=== PATIENT | male | born 1960 | race Caucasian/White ===

== ENCOUNTER 2018-02-04 14:20 | Emergency (ER) | payer OTHER, MEDICAID, SELFPAY ==
[2018-02-04] VITALS (8 sets, daily range): BP systolic 93–154; BP diastolic 67–96; PULSE 59–154; RESP 18–23; TEMP 37; O2SAT 96–100; BMI 19.7
--- NOTE | 2018-02-04 15:10 | DI.RAD.S_ITS ---
PROCEDURE: XR CHEST 1V INDICATIONS: chest pain TECHNIQUE: One view of the chest was acquired. COMPARISON: [facility], , CHEST 1 VIEW, 07/19/2012, 22:33. FINDINGS: Surgical changes and devices: None. Lungs and pleura: No pleural effusions or pneumothorax. Lungs are clear. Mediastinum: The cardiac contours are within normal limits. The aorta demonstrates calcification and tortuosity. Bones and chest wall: Age-appropriate bony degenerative changes are seen. No suspicious bony lesions. Overlying soft tissues appear unremarkable. IMPRESSION: Portable chest within normal limits. Dictated by: Galen Bennett M.D. on 02/04/2018 at 14:21 Approved by: Galen Bennett M.D. on 02/04/2018 at 14:22
[2018-02-04 15:15] LABS: Add Manual Diff / Slide Review NO; Basophils Percent Auto 1.2 % (0-2); Eosinophils Percent Auto 2.3 % (2-4); Hematocrit 46.8 % (41-53); Hemoglobin 15.4 g/dL (13.5-17.5); Lymphocytes Percent Auto 19.5 % (25-40); Mean Corpuscular HGB Conc 32.9 % (30-36); Mean Corpuscular Hemoglobin 30.7 PG (26-34); Mean Corpuscular Volume 93.1 fL (80-100); Monocytes Percent Auto 11.3 % (3-14); Neutrophils Absolute Auto 3800 /uL (3000-5900); Neutrophils Percent Auto 65.7 % (50-75); Platelet Count 248 X10^3/uL (150-400); Red Blood Cell Count 5.03 X10^6/uL (4.5-5.9); Red Cell Distribution Width 15.5 % (11.6-14.8); White Blood Cell Count 5.7 X10^3/uL (4.5-11.0)
[2018-02-04 15:21] LABS: Alanine Aminotransferase 19 IU/L (21-72); Albumin Globulin Ratio 1.3 (1.0-2.8); Alkaline Phosphatase 75 U/L (38-126); Aspartate Aminotransferase 23 IU/L (17-59); BUN Creatinine Ratio 13.3 (6-22); Bilirubin Total 0.3 mg/dL (0.2-1.3); Blood Urea Nitrogen 20 mg/dL (9-20); Calcium 8.6 mg/dL (8.4-10.2); Carbon Dioxide 26 mmol/L (22-32); Chloride 104 mmol/L (98-107); Creatine Kinase 46 U/L (55-170); Estimated Glomerular Filt Rate 48.4 mL/min (>60); Globulin 3.1 g/dL (1.7-4.1); Glucose 77 mg/dL (70-100); HEMOLYSIS 38 (0-50); Lipase 98 U/L (23-300); Potassium 4.7 mmol/L (3.4-5.1); Sodium 142 mmol/L (137-145); Total Protein 7.1 g/dL (6.3-8.2)
[2018-02-04 15:32] LABS: Troponin I 0.014 ng/mL (0.01-0.034)
[2018-02-04] MEDS: ASPIRIN 81 MG TAB 324 MG PO (15:32)
[2018-02-04] MEDS: methylPREDNISolone 125 MG/2 ML VIAL IV (15:32)
[2018-02-04] MEDS: ALBUTEROL/IPRATROPIUM 3 ML AMPUL INH (15:42)
[2018-02-04 15:52] LABS: B Type Natriuretic Peptide < 100.0 (<100)
--- NOTE | 2018-02-04 16:30 | ED.CHESTPAIN ---
HPI - Chest Pain General Chief Complaint: Chest Pain Stated Complaint: chest hurts Time Seen by Provider: 02/04/18 14:58 Source: patient Mode of arrival: ambulatory Limitations: no limitations History of Present Illness HPI narrative: Patient is a 57-year-old male who presents with chest discomfort. He says it has been hurting in her chest for 2 days every time breathes. Denies shortness of breath, but is taking shallow breaths because it hurts. Does have a history of CVA, but no known coronary artery disease. He denies any fever productive cough. Chest pain is nonradiating. MD complaint: chest pain Onset (ago): day(s) (2) Duration: constant Pain location: substernal Severity: moderate Quality: tightness Pain radiation: none Exacerbating factors: nothing Treatments prior to arrival chest pain: none Related Data Home Medications Medication Instructions Recorded Confirmed lisinopril 20 mg PO QPM 02/04/18 02/04/18 Previous Rx's Medication Instructions Recorded doxycycline hyclate 100 mg PO BID #14 cap 02/04/18 prednisone 50 mg PO DAILY #5 tab 02/04/18 Allergies Allergy/AdvReac Type Severity Reaction Status Date / Time No Known Drug Allergies Allergy Verified 02/04/18 15:39 Review of Systems Review of Systems All systems reviewed & are unremarkable except as noted in HPI and below Cardiovascular Reports as per HPI, Denies dyspnea and Denies dyspnea on exertion Respiratory Denies change in phlegm color, Denies cough, Reports pain on inspiration, Denies dyspnea and Denies dyspnea on exertion Gastrointestinal Gastrointestinal: Denies abdominal pain, Denies change in bowel habits, Denies diarrhea, Denies nausea and Denies vomiting Genitourinary Denies hematuria, Denies flank pain, Denies urinary incontinence and Denies urinary urgency Musculoskeletal Denies back pain, Denies muscle weakness, Denies numbness and Denies tingling Integumentary/Breasts Denies pruritus, Denies erythema, Denies rash and Denies wounds Neurologic Denies numbness and Denies tingling PFSH Medical History COPD (chronic obstructive pulmonary disease) (Acute) CVA (cerebral vascular accident) (Acute) Social History Smoking Status: Current every day smoker Exam Initial Vital Signs Initial Vital Signs: Vital Signs Temperature 98.6 F 02/04/18 14:29 Pulse Rate 154 H 02/04/18 14:29 Respiratory Rate 22 02/04/18 14:29 Blood Pressure 154/94 H 02/04/18 14:29 Pulse Oximetry 100 02/04/18 14:29 Const General: cooperative Nutritional Appearance: malnourished Orientation: alert, awake and oriented x3 [facility] Head: normal to inspection and normocephalic Nose: external nose normal Face and sinus: normal facial exam Eyes General: appearance normal, both eyes and all related structures Pupils: PERRL EOM: EOM intact bilaterally Neck Neck: normal visual inspection, trachea midline, No lymphadenopathy, No midline deformity and No JVD Lymphatic: No lymphedema Chest Chest: normal inspection of the chest Resp Effort & Inspection: normal respiratory effort, able to speak in complete sentences, no respiratory distress and no use of accessory muscles Auscultation: bronchovesicular breath sounds (Decreased breath sounds bilaterally), no rales, no rhonchi and no wheezes Cardio Rate: regular rate Rhythm: regular rhythm Heart Sounds: no click, no gallops, no murmurs and no rubs Pulses: normal peripheral pulses GI Inspection: non-distended Palpation: soft, no hepatosplenomegaly, No guarding, No pulsatile mass and No tender Auscultation: normal bowel sounds Skin General: no rashes or lesions noted, No jaundice and No petechiae Neuro General: alert, oriented x3, gait normal and no focal motor deficits Speech: speech normal Course Orders Ordered: Discontinued Medications Albuterol (Ventolin Hfa Prepack) 1 box MISC SEEINSTR ONE Stop: 02/04/18 17:46 Last Admin: 02/04/18 17:49 Dose: 1 box Albuterol/Ipratropium (Duoneb) 3 ml INH NOW ONE Stop: 02/04/18 15:11 Last Admin: 02/04/18 15:42 Dose: 3 ml Aspirin (Aspirin Chew) 324 mg PO NOW ONE Stop: 02/04/18 15:11 Last Admin: 02/04/18 15:32 Dose: 324 mg Methylprednisolone (Solu-Medrol 125 Mg Vial) 125 mg IV NOW ONE Stop: 02/04/18 15:11 Last Admin: 02/04/18 15:32 Dose: 125 mg Methylprednisolone (Solu-Medrol 125 Mg Vial) 125 mg IV NOW ONE Stop: 02/04/18 16:33 Last Admin: 02/04/18 16:45 Dose: Not Given Nitroglycerin (Nitrostat) 0.4 mg SL NOW ONE Stop: 02/04/18 16:46 Last Admin: 02/04/18 16:51 Dose: 0.4 mg Vital Signs - 8 hr 02/04/18 14:29 02/04/18 15:43 02/04/18 16:00 Temperature 98.6 F Pulse Rate 154 H 62 Respiratory Rate 22 23 Blood Pressure 154/94 H Blood Pressure [Left Arm] 126/92 H Pulse Oximetry 100 97 96 MDM - Chest Pain Lab Data Attestation: I reviewed the patient's lab results. Result diagrams: 02/04/18 14:40 02/04/18 14:40 Lab Results 02/04/18 02/04/18 02/04/18 Range/Units 14:40 14:40 15:22 WBC 5.7 (4.5-11.0) X10^3/uL RBC 5.03 (4.5-5.9) X10^6/uL Hgb 15.4 (13.5-17.5) g/dL Hct 46.8 (41-53) % MCV 93.1 (80-100) fL MCH 30.7 (26-34) PG MCHC 32.9 (30-36) % RDW 15.5 H (11.6-14.8) % Plt Count 248 (150-400) X10^3/uL Neut % (Auto) 65.7 (50-75) % Lymph % (Auto) 19.5 L (25-40) % [place] % (Auto) 11.3 (3-14) % Eos % (Auto) 2.3 (2-4) % Baso % (Auto) 1.2 (0-2) % Neut # (Auto) 3800 (8461-0457) /uL Sodium 142 (137-145) mmol/L Potassium 4.7 (3.4-5.1) mmol/L Chloride 104 (98-107) mmol/L Carbon Dioxide 26 (22-32) mmol/L BUN 20 (9-20) mg/dL Creatinine 1.50 H (0.66-1.25) mg/dL Estimated GFR 48.4 L (>60) mL/min BUN/Creatinine Ratio 13.3 (6-22) Glucose 77 (70-100) mg/dL Calcium 8.6 (8.4-10.2) mg/dL Total Bilirubin 0.3 (0.2-1.3) mg/dL AST 23 (17-59) IU/L ALT 19 L (21-72) IU/L Alkaline Phosphatase 75 (38-126) U/L Total Creatine Kinase 46 L (55-170) U/L CK-MB (CK-2) TNP CK-MB (CK-2) Rel Index TNP Troponin I 0.014 (0.01-0.034) ng/mL B-Natriuretic Peptide < 100.0 (<100) Total Protein 7.1 (6.3-8.2) g/dL Albumin 4.0 (3.5-5.0) g/dL Globulin 3.1 (1.7-4.1) g/dL Albumin/Globulin Ratio 1.3 (1.0-2.8) Lipase 98 (23-300) U/L Imaging Data Chest x-ray: Radiologist's impression: PROCEDURE: XR CHEST 1V INDICATIONS: chest pain TECHNIQUE: One view of the chest was acquired. COMPARISON: [facility], , CHEST 1 VIEW, 07/19/2012, 22:33. FINDINGS: Surgical changes and devices: None. Lungs and pleura: No pleural effusions or pneumothorax. Lungs are clear. Mediastinum: The cardiac contours are within normal limits. The aorta demonstrates calcification and tortuosity. Bones and chest wall: Age-appropriate bony degenerative changes are seen. No suspicious bony lesions. Overlying soft tissues appear unremarkable. IMPRESSION: Portable chest within normal limits. Dictated by: Galen Bennett M.D. on 02/04/2018 at 14:21 ECG Data Attestation: I personally reviewed and interpreted this ECG as follows: Prior ECG tracings: available for review Interpretation: Normal sinus rhythm rate [address] changes no T-wave inversions care interval 144 QRS 85 MDM Narrative Medical decision making narrative: Initially patient given DuoNeb however he was unable to finish a that it was making his chest hurt. He continues to be able to play a video game on his iPad. Blood work chest x-ray EKG within normal limits. He is agreeable to try another breathing treatment. He is able to complete this 1 and says that it does make him feel better. He received spacer training. He is at risk coronary artery disease however does not appear to be a problem at this time. Pain with inspiration improved with bronchodilators more likely COPD. Do not suspect PE at this time no is considered, no further imaging or testing indicated at this time. Discharge Plan Departure Patient Disposition: Home Clinical Impression: COPD (chronic obstructive pulmonary disease) Discharge Date/Time: 02/04/18 18:02 Interventions: ED Discharge Assessment Last Done: 02/04/18 18:00 Instructions: Chronic Obstructive Pulmonary Disease Activity Restrictions/Additional Instructions: *You have been diagnosed with COPD exacerbation *What to do: May require further testing of the your heart such as a stress test however at this time it seems to be more respiratory than heart *Continue to take medications as directed Albuterol inhaler with spacer every 4 hr if needed for pain with breathing or difficulty breathing Prednisone 50 mg once a day for 5 days Doxycycline 1 tablet twice a day for 7 days *Follow up with your primary care provider in 2-3 days *Return to ER if you should have increasing chest discomfort shortness of breath dizziness, lightheadedness or any new, worsening or concerning symptoms Prescriptions: New doxycycline hyclate 100 mg capsule 100 mg PO BID Qty: 14 RF: 0 prednisone 50 mg tablet 50 mg PO DAILY Qty: 5 RF: 0 No Action lisinopril 20 mg tablet 20 mg PO QPM RF: 0
[2018-02-04] MEDS: NITROGLYCERIN 0.4 MG SL TAB SL (16:51)
--- NOTE | 2018-02-04 17:21 | PC.NURSE ---
Pt completed duoneb treatment from earlier.
[2018-02-04] MEDS: ALBUTEROL HFA PREPACK 1 BOX MISC (17:49)
== END 2018-02-04 18:02 | disposition home or self-care (01) ==
PROVIDERS: Emergency Provider Emergency Medicine
DX: J44.9 Chronic obstructive pulmonary disease, unspecified (principal)
CPT/HCPCS: 36591; 71045; 80053; 82550; 83690; 83880; 84484; 85025; 93005; 94640; 96374; 99283; 99285; J2930

== ENCOUNTER → 2018-11-08 16:10 | Outpatient (CLI) | payer OTHER, MEDICAID, SELFPAY ==
--- NOTE | 2018-11-08 16:13 | DI.US.S_ITS ---
PROCEDURE: US RENAL COMPLETE INDICATIONS: CHRONIC KIDNEY DISEASE STAGE 3 TECHNIQUE: Real-time scanning was performed of the kidneys and bladder, with image documentation. COMPARISON: [facility], CR, XR CHEST 1V, 02/04/2018, 15:13. FINDINGS: Kidneys: Kidneys are small in size. Right kidney measures 8.5 cm long; left kidney measures 6.5 cm long. Right renal cortical thickness is 1.6 cm; left renal cortical thickness is 1.1 cm. Renal cortical echotexture is echogenic and nodular bilaterally.. No hydronephrosis or nephrolithiasis. No suspicious solid mass lesions. Bladder: Pre-void bladder volume is 35 mL. Post-void residual is 5 mL. Pre-void images demonstrate no intraluminal masses or stones. On pre-void images, bilateral ureteral jets are noted with color Doppler interrogation. (Of note, ureteral jets may not be detectable in up to 25% of cases due to insufficient differences in specific gravity between ureteral and bladder urine). Miscellaneous: No free pelvic fluid. IMPRESSION: Small kidneys, echogenic nodular renal cortex bilaterally, no hydronephrosis or nephrolithiasis is found. Normal bladder function. Dictated by: Colt Ferguson M.D. on 11/08/2018 at 17:16 Approved by: Colt Ferguson M.D. on 11/08/2018 at 17:18
== END ==
PROVIDERS: Visit Provider Student in an Organized Health Care Education/Training Program
DX: N18.3 Chronic kidney disease, stage 3 (moderate) (principal)
CPT/HCPCS: 76770

== ENCOUNTER 2019-02-10 03:26 | Observation (INO) | payer OTHER, MEDICAID, SELFPAY ==
[2019-02-10 03:30] VITALS: BP 171/102; PULSE 61; RESP 22; TEMP 36.4; O2SAT 97; BMI 21.6
--- NOTE | 2019-02-10 03:43 | ED_ITS ---
HPI - Abdominal Pain General Chief Complaint: Abdominal Pain Stated Complaint: R Side Abdomen Pain Time Seen by Provider: 02/10/19 03:29 Source: patient Mode of arrival: Ambulatory Limitations: no limitations History of Present Illness HPI narrative: 58-year-old male daily smoker with history of hypertension and a prior perforated gastric ulcer presents with his significant other in the chief complaint of a relatively sudden onset right upper quadrant pain which is sharp and stabbing and unrelenting. The pain started soon after eating dinner. He has been nauseated but denies any vomiting. He denies any change in bowel habits. He denies any dysuria, frequency or urgency. He has had no fever or chills. He is not dizzy nor weak or lightheaded. It he denies any constipation or diarrhea. His pain is worse when he moves and improves with rest. He denies any history of the same MD complaint: abdominal pain Onset (ago): hour(s) Pain Consistency: constant Location: RUQ Severity: moderate Quality: cramping and stabbing Radiation: none Migration to: no migration Relieving factors: rest Exacerbating factors: eating and movement Associated symptoms: nausea Related Data Home Medications Medication Instructions Recorded Confirmed lisinopril 20 mg PO QPM 02/04/18 02/10/19 Previous Rx's Medication Instructions Recorded doxycycline hyclate 100 mg PO BID #14 cap 02/04/18 prednisone 50 mg PO DAILY #5 tab 02/04/18 docusate sodium [Colace] 100 mg PO BID #90 cap 02/10/19 Allergies Allergy/AdvReac Type Severity Reaction Status Date / Time No Known Drug Allergies Allergy Verified 02/04/18 15:39 Review of Systems Constitutional Constitutional: Denies chills, Denies fatigue, Denies fever(s), Denies frequent falls, Denies lethargy and Denies weakness Eyes Eyes: Denies change in vision, Denies eye discharge, Denies irritation and Denies loss of vision ENT Ears, Nose, Mouth, and Throat: Denies change in voice, Denies dizziness, Denies neck pain, Denies sore throat and Denies throat swelling Cardiovascular Cardiovascular: Denies chest pain, Denies irregular heart rhythm, Denies lightheadedness, Denies palpitations, Denies dyspnea, Denies dyspnea on exertion and Denies orthopnea Respiratory Respiratory: Denies cough, Denies dyspnea, Denies dyspnea on exertion and Denies wheezing Gastrointestinal Gastrointestinal: Reports abdominal pain, Denies change in bowel habits, Denies diarrhea, Denies nausea and Denies vomiting Genitourinary Genitourinary: Denies hematuria, Denies flank pain, Denies urinary incontinence and Denies urinary urgency Musculoskeletal Musculoskeletal: Denies back pain, Denies muscle weakness, Denies neck pain, Denies numbness and Denies tingling Integumentary/Breasts Skin/Breast: Denies pruritus, Denies erythema, Denies rash and Denies wounds Neurologic Neurologic: Denies behavioral changes, Denies confusion, Denies dizziness, Denies frequent falls, Denies loss of vision, Denies numbness, Denies tingling and Denies weakness Psychiatric Psychiatric: Denies anxiety, Denies behavioral changes, Denies confusion, Denies depression, Denies homicidal ideation and Denies suicidal ideation Endocrine Endocrine: Denies fatigue, Denies flushing and Denies palpitations Hematologic/Lymphatic Hematologic/Lymphatic: Denies easy bruising Allergic/Immunologic Allergic/Immunologic: Denies urticaria, Denies throat swelling and Denies wheezing Patient History Medical History COPD (chronic obstructive pulmonary disease) (Acute) CVA (cerebral vascular accident) (Acute) Social History household members: family Smoking Status: Current every day smoker alcohol intake frequency: 0-2 drinks per day Substance Use Type: marijuana Exam Narrative Exam Narrative: GENERAL: [58] year old patient appears stated age. Well- nourished, well-developed patient, in mild distress. HEAD: Atraumatic. Normocephalic. EYES: Pupils equal round and reactive. Extraocular motions intact. No scleral icterus. No injection or drainage. ENT: Nose without bleeding, purulent drainage. Throat without erythema, tonsillar hypertrophy or exudate. Airway patent. NECK: Trachea midline. Non tender CARDIOVASCULAR: Regular rate and rhythm without murmurs, gallops, or rubs. RESPIRATORY: Clear to auscultation. Breath sounds equal bilaterally. No wheezes, rales, or rhonchi. GASTROINTESTINAL: Abdomen soft, tender in RUQ, nondistended. EXTREMITIES: No edema or joint tenderness. BACK: Nontender without deformity or crepitance. No flank tenderness. NEURO: AOx3. SKIN: No rash or erythema of visible areas Initial Vital Signs Initial Vital Signs: Vital Signs Temperature 97.6 F 02/10/19 03:30 Pulse Rate 61 02/10/19 03:30 Respiratory Rate 22 02/10/19 03:30 Blood Pressure 171/102 H 02/10/19 03:30 Pulse Oximetry 97 02/10/19 03:30 Course Orders Ordered: Discontinued Medications Hydromorphone HCl (Dilaudid) 1 mg IV NOW ONE Stop: 02/10/19 04:50 Last Admin: 02/10/19 04:53 Dose: 1 mg Documented by: JAZZMINE Hydromorphone HCl (Dilaudid) 1 mg IV Q4HR PRN PRN Reason: Pain, Severe (7-10) Last Admin: 02/10/19 06:48 Dose: 1 mg Documented by: AMELIA Sodium Chloride (Normal Saline 0.9%) 1,000 mls @ 1,000 mls/hr IV BOLUS ONE Stop: 02/10/19 04:42 Last Infusion: 02/10/19 04:49 Dose: 0 mls/hr Documented by: Admin: 02/10/19 04:05 Dose: 1,000 mls/hr Documented by: JAZZMINE Piperacillin/Tazobactam/Dextrose (Zosyn) 3.375 gm in 50 mls @ 100 mls/hr IV NOW ONE Stop: 02/10/19 05:38 Last Infusion: 02/10/19 05:45 Dose: 0 mls/hr Documented by: Admin: 02/10/19 05:13 Dose: 100 mls/hr Documented by: JAZZMINE Sodium Chloride (Normal Saline 0.9%) 1,000 mls @ 125 mls/hr IV CONT JUAN Last Admin: 02/10/19 06:47 Dose: 125 mls/hr Documented by: AMELIA Magnesium Citrate (Magnesium Citrate) 300 ml PO NOW ONE Stop: 02/10/19 15:39 Last Admin: 02/10/19 17:13 Dose: 300 ml Documented by: LORIE Naloxone HCl (Narcan) 0.2 mg IV Q2MIN PRN PRN Reason: Opiate Reversal Ondansetron HCl (Zofran) 4 mg IV NOW ONE Stop: 02/10/19 04:50 Last Admin: 02/10/19 04:53 Dose: 4 mg Documented by: JAZZMINE Ondansetron HCl (Zofran) 4 mg IV Q4HR PRN PRN Reason: Nausea And Vomiting Polyethylene Glycol (Miralax) 17 gm PO NOW ONE Stop: 02/10/19 09:43 Last Admin: 02/10/19 10:10 Dose: 17 gm Documented by: NATHANAEL Sodium Biphosphate/Sodium Phosphate (Fleet Enema) 1 each TN NOW ONE Stop: 02/10/19 09:43 Last Admin: 02/10/19 15:04 Dose: 1 each Documented by: NATHANAEL Vital Signs Vital signs: Vital Signs - 8 hr 02/10/19 03:30 Temperature 97.6 F Pulse Rate 61 Respiratory Rate 22 Blood Pressure 171/102 H Pulse Oximetry 97 MDM - Abdominal Pain Lab Data Result diagrams: 02/10/19 03:40 02/10/19 03:40 Labs: Lab Results 02/10/19 02/10/19 Range/Units 03:40 03:40 WBC 8.7 (4.5-11.0) X10^3/uL RBC 5.95 H (4.5-5.9) X10^6/uL Hgb 19.3 H (13.5-17.5) g/dL Hct 56.9 H (41-53) % MCV 95.6 (80-100) fL MCH 32.4 (26-34) PG MCHC 33.9 (30-36) % RDW 15.1 H (11.6-14.8) % Plt Count 226 (150-400) X10^3/uL Neut % (Auto) 83.6 H (50-75) % Lymph % (Auto) 7.1 L (25-40) % [place] % (Auto) 7.5 (3-14) % Eos % (Auto) 0.7 L (2-4) % Baso % (Auto) 1.1 (0-2) % Neut # (Auto) 7200 H (8998-9988) /uL Lymph # (Auto) 600 L (8799-6786) /uL [place] # (Auto) 600 (0-900) /uL Eos # (Auto) 100 (0-450) /uL Baso # (Auto) 100 (0-100) /uL Sodium 140 (137-145) mmol/L Potassium 4.7 (3.4-5.1) mmol/L Chloride 102 (98-107) mmol/L Carbon Dioxide 26 (22-32) mmol/L BUN 34 H (9-20) mg/dL Creatinine 2.50 H (0.66-1.25) mg/dL Estimated GFR 26.8 L (>60) mL/min BUN/Creatinine Ratio 13.6 (6-22) Glucose 125 H (70-100) mg/dL Calcium 11.1 H (8.4-10.2) mg/dL Total Bilirubin 0.7 (0.2-1.3) mg/dL AST 32 (17-59) IU/L ALT 22 (<50) IU/L Alkaline Phosphatase 104 (38-126) U/L Total Protein 8.2 (6.3-8.2) g/dL Albumin 4.7 (3.5-5.0) g/dL Globulin 3.5 (1.7-4.1) g/dL Albumin/Globulin Ratio 1.3 (1.0-2.8) Lipase 143 (23-300) U/L Point of care testing: Urine Dip Bedside Urine Glucose Negative Bedside Urine Bilirubin - Negative Bedside Urine Ketone - Negative Urine Specific [place] 1.015 Bedside Urine Occult Blood +/- Bedside Urine pH 6 Bedside Urine Protein +/- 15 Bedside Urine Urobilinogen - Negative Bedside Urine Nitrite - Negative Bedside Urine Leukocytes - Negative Esterase Discharge Plan Departure Patient Disposition: Admitted As Inpatient Clinical Impression: Acalculous cholecystitis Discharge Date/Time: 02/10/19 06:00 Instructions: Constipation Admit Date/Time: 02/10/19 05:26 Admit Provider: Aaron Coates
--- NOTE | 2019-02-10 03:45 | DI.US.S_ITS ---
PROCEDURE: US ABDOMEN LIMITED INDICATIONS: severe RUQ pain TECHNIQUE: Real-time focused scanning was performed of the abdomen, with image documentation. COMPARISON: None. FINDINGS: Liver is normal in size and has homogeneous echotexture. Gallbladder is mildly contracted. No gallstones. Gallbladder wall is mildly thickened measuring 3.2 mm. No pericholecystic fluid. Positive sonographic Clay sign noted. Common bile duct is normal in caliber measuring 5.8 mm. IMPRESSION: 1. Mild gallbladder wall thickening with positive sonographic Clay sign. Acute acalculous cholecystitis cannot be excluded. Recommend nuclear medicine HIDA scan if there is clinical concern for cholecystitis. 2. No evidence of biliary obstruction. Dictated by: Dot García MD, PhD on 02/10/2019 at 8:13 Approved by: Dot García MD, PhD on 02/10/2019 at 8:14
[2019-02-10 03:55] LABS: Add Manual Diff / Slide Review NO; Alanine Aminotransferase 22 IU/L (<50); Albumin 4.7 g/dL (3.5-5.0); Albumin Globulin Ratio 1.3 (1.0-2.8); Alkaline Phosphatase 104 U/L (38-126); Aspartate Aminotransferase 32 IU/L (17-59); BUN Creatinine Ratio 13.6 (6-22); Basophils Absolute Auto 100 /uL (0-100); Basophils Percent Auto 1.1 % (0-2); Bilirubin Total 0.7 mg/dL (0.2-1.3); Blood Urea Nitrogen 34 mg/dL (9-20); Calcium 11.1 mg/dL (8.4-10.2); Carbon Dioxide 26 mmol/L (22-32); Chloride 102 mmol/L (98-107); Eosinophils Absolute Auto 100 /uL (0-450); Eosinophils Percent Auto 0.7 % (2-4); Estimated Glomerular Filt Rate 26.8 mL/min (>60); Globulin 3.5 g/dL (1.7-4.1); Glucose 125 mg/dL (70-100); HEMOLYSIS 38 (0-50); Hematocrit 56.9 % (41-53); Hemoglobin 19.3 g/dL (13.5-17.5); Lipase 143 U/L (23-300); Lymphocytes Absolute Auto 600 /uL (1100-4500); Lymphocytes Percent Auto 7.1 % (25-40); Mean Corpuscular HGB Conc 33.9 % (30-36); Mean Corpuscular Hemoglobin 32.4 PG (26-34); Mean Corpuscular Volume 95.6 fL (80-100); Monocytes Absolute Auto 600 /uL (0-900); Monocytes Percent Auto 7.5 % (3-14); Neutrophils Absolute Auto 7200 /uL (1500-7000); Neutrophils Percent Auto 83.6 % (50-75); Platelet Count 226 X10^3/uL (150-400); Potassium 4.7 mmol/L (3.4-5.1); Red Blood Cell Count 5.95 X10^6/uL (4.5-5.9); Red Cell Distribution Width 15.1 % (11.6-14.8); Sodium 140 mmol/L (137-145); Total Protein 8.2 g/dL (6.3-8.2); White Blood Cell Count 8.7 X10^3/uL (4.5-11.0)
[2019-02-10] MEDS: SODIUM CHLORIDE 0.9% 1,000 ML 1000 ML IV (04:05)
[2019-02-10] MEDS: ONDANSETRON 4 MG/2 ML INJ IV (04:53)
[2019-02-10] MEDS: HYDROMORPHONE 1 MG INJ IV ×2 (04:53→06:48)
[2019-02-10] MEDS: PIPERACILLIN-TAZO 3.375 GM/50 ML FROZ.PIGGY IV (05:13)
[2019-02-10 05:39] VITALS: BP 137/69; PULSE 49; RESP 15; O2SAT 96
[2019-02-10 06:23] VITALS: BMI 20.2
[2019-02-10 06:40] VITALS: BP 140/93; PULSE 52; RESP 16; TEMP 36.6; O2SAT 91
[2019-02-10] MEDS: SODIUM CHLORIDE 0.9% 1,000 ML 125 ML IV (06:47)
--- NOTE | 2019-02-10 07:20 | DI.CT.S_ITS ---
PROCEDURE: CT ABDOMEN PELVIS WO CON INDICATIONS: RLQ pain, GFR 26.8 TECHNIQUE: After the administration of oral contrast, 5 mm thick sections acquired from the diaphragms to the symphysis. 5 mm coronal and sagittal reformats were performed. For radiation dose reduction, the following was used: automated exposure control, adjustment of mA and/or kV according to patient size. COMPARISON: [facility], CT, ABDOMEN/PELVIS WITH CONTRAST, 07/19/2012, 22:20. FINDINGS: Image quality: Excellent. ABDOMEN: Lung bases: Lung bases are clear. Heart size is normal. Solid organs: Liver is normal in size. Gallbladder is unremarkable. Pancreas is normal in size. Spleen is normal in size. No adrenal nodules. Both kidneys are normal in size, without hydronephrosis or nephrolithiasis. Peritoneum and bowel: The stomach is distended. It has a thin wall. Large amount of fecal debris present in the right colon. Prominent transverse colon and mildly prominent small bowel. Question mild ileus. Bowel loops demonstrate normal wall thickness and caliber. Sigmoid diverticulosis without evidence of diverticulitis. The appendix is not identified. There is no significant inflammatory change noted in the right lower quadrant. No free fluid or air. Nodes and vessels: No retroperitoneal or mesenteric adenopathy by size criteria. Aorta and inferior vena cava are normal in size. Atherosclerotic aortic and common iliac artery calcifications. Miscellaneous: No ventral hernias. PELVIS: Genitourinary: Bladder wall thickness is normal. Miscellaneous: Question small bilateral inguinal hernias containing fat. Shotty bilateral inguinal lymph nodes. Bones: No suspicious bony lesions. No vertebral body compression fractures. IMPRESSION: 1. Large amount of fecal debris present in the right colon. 2. Question small bilateral inguinal hernias containing fat. 3. No CT findings suspicious for acute appendicitis. 4. Question mild ileus pattern. 5. Mild sigmoid diverticulosis. Comment: Limited pelvic ultrasound may be helpful to identify the presence or absence of inguinal hernias. Dictated by: Jay Boswell M.D. on 02/10/2019 at 8:41 Approved by: Jay Boswell M.D. on 02/10/2019 at 8:49
--- NOTE | 2019-02-10 08:51 | CM.DANOTE ---
DCP: Case received, EMR reviewed and met with patient. Introduced self and role. Patient reluctant to have conversation with this correctional counselor/case manager, answered yes and no questions, as well as I don't know. Was able to witness patient ambulate with no DME supplies, as he went down for a C.T. of his abdomen. DCP assessment completed based on information currently available. Patient is a 58 year old male who admitted early this morning to the care of the hospitalist team. PCP: Unknown at this time. Payer: [facility] /Medicaid. Patient came to the hospital via family vehicle secondary to complaints of abdominal pain. Patient is currently getting diagnostic imaging, just came back from a C.T. scan, of his abdomen. Witnessed patient ambulate to wheel-chair to go down for procedure, came back, ambulated to bathroom with no DME supplies. This correctional counselor/case manager attempted to speak to patient, he was in his bed laying on his side. Asked him if he had a primary provider, stated, I don't know. Asked him if he lives alone, stated, no, and did confirm with him that he does not drive. Patient lives with his mother, Diamond, and has a friend, Billie Irvin, according to notes. Patient is a current smoker, and does use Marijuana. He has history of HTN, and gastric ulcer as well. P: DCP will continue to follow, and be available for any resources that he may need. He should be able to go home when he is medically stable. Sherri Maya RN/Electron [employer] Photo Mask Technician
[2019-02-10] MEDS: POLYETHYLENE GLYCOL 3350 17 GM POWD.PACK PO (10:10)
[2019-02-10 14:28] VITALS: BP 134/75; PULSE 69; TEMP 36.7; O2SAT 92
--- NOTE | 2019-02-10 14:29 | P.HP_ITS ---
History of Present Illness History of Present Illness Date Patient Seen: 02/10/19 Time Patient Seen: 14:30 Chief complaint: R Side Abdomen Pain Narrative: This is a 58-year-old male was admitted to this hospital with generalized right sided abdominal pain. New in onset associated with some nausea no emesis or diarrhea fever. There is thought that he might have a calculous cholecystitis based on an ultrasound was obtained in the emergency room which demonstrated some mild with gallbladder wall thickening however there were no stones there was no pericholecystic fluid a normal white blood cell count. No history of biliary colic. Past medical history is significant for COPD chronic kidney disease history of perforated peptic ulcer. Patient History Medical History COPD (chronic obstructive pulmonary disease) (Acute) CVA (cerebral vascular accident) (Acute) Family & Social History Social History: household members family Prior Living Arrangements House Safety & Behavioral: Feels Safe in Current Yes Environment Been Physically Hurt or No Threatened By a Person Suicidal Ideation Description None Tobacco & Substance use: Tobacco type cigarettes Smoking Status Current every day smoker Smoking packs per day 0.5 alcohol intake frequency holiday/special occasion Substance Use Type marijuana Meds Home Medications and Allergies Home Medications Medication Instructions Recorded Confirmed Type doxycycline hyclate 100 mg PO BID #14 cap 02/04/18 Rx lisinopril 20 mg PO QPM 02/04/18 02/10/19 History prednisone 50 mg PO DAILY #5 tab 02/04/18 Rx docusate sodium [Colace] 100 mg PO BID #90 cap 02/10/19 Rx Allergies Allergy/AdvReac Type Severity Reaction Status Date / Time No Known Drug Allergies Allergy Verified 02/04/18 15:39 Review of Systems Review of Systems Narrative: A complete review of systems is negative except as noted in the HPI Exam Vital Signs (past 8 hours): - 02/10/19 06:40 Temperature 97.8 F Pulse Rate 52 L Respiratory Rate 16 Blood Pressure 140/93 H Pulse Oximetry 91 Oxygen Delivery Method Room Air Narrative Exam Narrative: General-no acute distress, well nourished HEENT-moist mucous membranes, no scleral icterus Neck-supple, no lymphadenopathy Chest- non labored respirations, clear to auscultation bilaterally Cardiac-regular rate no peripheral edema Abdomen-soft, mild tenderness right lower quadrant no epigastric or right upper quadrant tenderness Extremities-warm, well perfused Neurological-alert and oriented, no focal deficits Objective Labs Result Diagrams: 02/10/19 03:40 02/10/19 03:40 Labs: Laboratory Results - last 24 hr 02/10/19 02/10/19 03:40 03:40 WBC 8.7 RBC 5.95 H Hgb 19.3 H Hct 56.9 H MCV 95.6 MCH 32.4 MCHC 33.9 RDW 15.1 H Plt Count 226 Neut % (Auto) 83.6 H Lymph % (Auto) 7.1 L [place] % (Auto) 7.5 Eos % (Auto) 0.7 L Baso % (Auto) 1.1 Neut # (Auto) 7200 H Lymph # (Auto) 600 L [place] # (Auto) 600 Eos # (Auto) 100 Baso # (Auto) 100 Sodium 140 Potassium 4.7 Chloride 102 Carbon Dioxide 26 BUN 34 H Creatinine 2.50 H Estimated GFR 26.8 L BUN/Creatinine Ratio 13.6 Glucose 125 H Calcium 11.1 H Total Bilirubin 0.7 AST 32 ALT 22 Alkaline Phosphatase 104 Total Protein 8.2 Albumin 4.7 Globulin 3.5 Albumin/Globulin Ratio 1.3 Lipase 143 Assessment & Plan Assessment and plan (1) Abdominal pain: Current visit: Yes Status: Acute Assessment & Plan narrative: This is a 58-year-old male with right-sided abdominal pain who was admitted for presumed acalculous cholecystitis. In my assessment he has right lower quadrant pain, the ultrasound demonstrates mild gallbladder wall thickening no pericholecystic fluid no stones mass in addition to a white blood cell count of 9 and normal LFTs. I have detained as CT abdomen pelvis with oral contrast morning which demonstrates normal gallbladder as well as no intra-abdominal acute pathology there is significant constipation. -Regular diet -DC Zosyn -Miralax -Magnesium citrate and Enema -SCDs Quality VTE Deep Vein Thrombosis/Pulmonary Embolism Present on Admission: No
--- NOTE | 2019-02-10 14:56 | PC.NURSE ---
Day Shift Pt drank contrast this AM for abd CT. Did have small emesis after returning (mouthful). able to drink miralax. did have small formed stool. Did not eat much else. Pt sleeping for majority of shift. Did not want enema, finally convinced pt at end of shift. will give. Spoke with pt's GF and she will be here this afternoon and will be available to take pt home.
[2019-02-10] MEDS: FLEETS ENEMA 1 EACH PR (15:04)
[2019-02-10 16:00] VITALS: BP 150/90; PULSE 66; RESP 18; TEMP 37.3
[2019-02-10] MEDS: MAGNESIUM CITRATE 300 ML SOLUTION PO (17:13)
--- NOTE | 2019-02-10 17:14 | PM.DS.1 ---
History of Present Illness History of Present Illness Chief complaint: R Side Abdomen Pain Narrative: This is a 58-year-old male was admitted to this hospital with generalized right sided abdominal pain. New in onset associated with some nausea no emesis or diarrhea fever. There is thought that he might have acalculous cholecystitis based on an ultrasound was obtained in the emergency room which demonstrated some mild with gallbladder wall thickening however there were no stones there was no pericholecystic fluid a normal white blood cell count. No history of biliary colic. Past medical history is significant for COPD chronic kidney disease history of perforated peptic ulcer. Discharge Providers Provider Date of admission: 02/10/19 05:26 Discharge Date: 02/10/19 Discharge provider: Aaron Coates MD Summary Hospital Course Discharge Diagnosis: Constipation COPD CKD Hospital Course: This is a 58-year-old male with right-sided abdominal pain who was admitted for presumed acalculous cholecystitis. In my assessment he has right lower quadrant pain, the ultrasound demonstrates mild gallbladder wall thickening no pericholecystic fluid no stones mass in addition to a white blood cell count of 9 and normal LFTs. I have detained as CT abdomen pelvis with oral contrast morning which demonstrates normal gallbladder as well as no intra-abdominal acute pathology there is significant constipation. A bowel regimen of MiraLax as well as enema was begun in the hospital with improvement in his abdominal pain. This point he is safe for discharge home. Status at Discharge Cognitive/behavioral status at discharge: oriented Functional status at discharge: independent ambulation Overall status at discharge: patient is back to baseline Time Spent with Patient Time spent: Less than 30 minutes Exam Vital Signs (past 8 hours): - 02/10/19 14:28 02/10/19 16:00 Temperature 98.1 F 99.2 F Pulse Rate 69 66 Respiratory Rate 18 Blood Pressure 134/75 150/90 H Pulse Oximetry 92 Oxygen Delivery Method Room Air Oxygen Flow Rate 0 Narrative Exam Narrative: General-no acute distress, thin man appears older than age HEENT-moist mucous membranes, no scleral icterus Neck-supple, no lymphadenopathy Chest- non labored respirations, clear to auscultation bilaterally Cardiac-regular rate no peripheral edema Abdomen-soft, nondistended Extremities-warm, well perfused Neurological-alert and oriented, no focal deficits Objective Labs Result Diagrams: 02/10/19 03:40 02/10/19 03:40 Labs: Laboratory Results - last 24 hr 02/10/19 02/10/19 03:40 03:40 WBC 8.7 RBC 5.95 H Hgb 19.3 H Hct 56.9 H MCV 95.6 MCH 32.4 MCHC 33.9 RDW 15.1 H Plt Count 226 Neut % (Auto) 83.6 H Lymph % (Auto) 7.1 L [place] % (Auto) 7.5 Eos % (Auto) 0.7 L Baso % (Auto) 1.1 Neut # (Auto) 7200 H Lymph # (Auto) 600 L [place] # (Auto) 600 Eos # (Auto) 100 Baso # (Auto) 100 Sodium 140 Potassium 4.7 Chloride 102 Carbon Dioxide 26 BUN 34 H Creatinine 2.50 H Estimated GFR 26.8 L BUN/Creatinine Ratio 13.6 Glucose 125 H Calcium 11.1 H Total Bilirubin 0.7 AST 32 ALT 22 Alkaline Phosphatase 104 Total Protein 8.2 Albumin 4.7 Globulin 3.5 Albumin/Globulin Ratio 1.3 Lipase 143 Discharge Plan Discharge Plan Patient Disposition: Home Discharge orders & Medications Prescriptions: New docusate sodium [Colace] 100 mg capsule 100 mg PO BID Qty: 90 RF: 0 Continued lisinopril 20 mg tablet 20 mg PO QPM RF: 0 doxycycline hyclate 100 mg capsule 100 mg PO BID Qty: 14 RF: 0 prednisone 50 mg tablet 50 mg PO DAILY Qty: 5 RF: 0 Diet/Activity/Treatments Diet: Regular Skin/Wound/Dressing Care Report to your healthcare provider any signs of infection, such as:: increased pain Discharge Data Attending Provider: Aaron Coates Admit Date/Time: 02/10/19 05:26 Quality VTE Deep Vein Thrombosis/Pulmonary Embolism Present on Admission: No
--- NOTE | 2019-02-10 19:58 | PC.NURSE ---
Addendum entered by Karmen Bowman R.N. 02/10/19 20:25: All DC paperwork/packet reviewed with patient. I instructed him to drink plenty of fluids and ambulate to help move his bowels. He denied further questions/concerns, was nonverbal or saying yeah or swearing once in a while. Girlfriend left to cigar packer and picker Miralax at [facility], patient aware of new med colace bid. Pt dressed independently, pausing every 1-2 minutes during mvmt, cussing multiple times, holding his abdomen. Patient assisted into wheelchair and taken downstairs by BAG HANGER to wait for his girlfriend, all paperwork & belongings are with him. Original Note: 1529: Patient in bed, sleeping. No grimace or moan, when wakeful he is moaning with facial grimace. Face flushed. VS stable, hypertensive, BP 150/90. Patient has had small stool in toilet. 1744: New order in chart for Mag Citrate, I waited for Rx to bring up. I called Rx to notify that I need this medication. Med sent to me. Took into patient, teaching given, I instructed him to drink Mag Citrate. Abdomen distended, tender to touch. Patient verbally cussing at me when I attempted to do head to toe assessment. 1929: Found patient ambulating in room, getting back to bed. Still has not consumed entire bottle of mag citrate, approx 1/3 left in the bottle. He reports significant pain 9/10 to abdomen, getting into position and closing eyes. Face flushed. He is swearing at me when I turn on the light & assess his abdomen. He denies having any BM. I went in BR and found small brown formed stool in toilet. I also found his IV J-loop sitting on top of the toilet paper dispenser. I asked him if he pulled his IV out, he said I guess, I asked to see his R forearm, he swore at me again, saying God-damn and F multiple times. IV site with no bleeding. I instructed him to sit up and drink rest of mag citrate, he refuses, swears at me & nonverbal at times. Girlfriend sitting in recliner & witness to this. 1950: Dr Coates called to see why patient has not DC'd, I explained that patient is still reporting significant pain to abdomen, refusing to drink the rest of Mag Citrate and swearing at staff when staff attempts to help him. Dr Coates said that the patient should be DC'd.
--- NOTE | 2019-02-17 09:38 | PC.NURSE ---
Late entry: NS stopped 02/10 9503
== END 2019-02-10 20:25 | disposition home or self-care (01) ==
LOC: ED 04:59 → AC 09:55
PROVIDERS: Admitting Provider Surgery; Emergency Provider Emergency Medicine; Visit Provider Surgery
DX: K59.00 Constipation, unspecified (principal); R10.11 Right upper quadrant pain; F17.210 Nicotine dependence, cigarettes, uncomplicated; J44.9 Chronic obstructive pulmonary disease, unspecified; N18.9 Chronic kidney disease, unspecified
CPT/HCPCS: 36415; 74176; 76705; 80053; 81003; 83690; 85025; 93005; 96361; 96365; 96375; 96376; 99219; 99282; 99284; G0378; J1170; J2405; J2543

== ENCOUNTER 2020-09-13 22:02 | Emergency (ER) | payer OTHER, MEDICAID, SELFPAY ==
[2020-09-13 22:14] VITALS: BP 208/105; PULSE 69; RESP 16; TEMP 36.2; O2SAT 98; BMI 20.9
--- NOTE | 2020-09-13 22:47 | DI.RAD.S_ITS ---
PROCEDURE: XR CHEST 2V INDICATIONS: Shortness of breath TECHNIQUE: 2 views of the chest were acquired. COMPARISON: [facility], CR, XR CHEST 1V, 02/04/2018, 15:13. FINDINGS: Surgical changes and devices: None. Lungs and pleura: Patchy bilateral pulmonary opacities are present including blunting the costophrenic angles. Mediastinum: Mediastinal contours are normal. Heart size is enlarged. Bones and chest wall: No suspicious bony abnormalities. Soft tissues appear unremarkable. IMPRESSION: Minimal effusions as well as bilateral pulmonary opacities suggestive of pneumonia. Underlying areas of edema cannot be excluded. Recommend interval follow-up to document resolution and exclude presence of underlying mass. The above findings are concordant with preliminary report. Dictated by: Lucinda Trinh M.D. on 09/14/2020 at 9:43 Approved by: Lucinda Trinh M.D. on 09/14/2020 at 9:44
[2020-09-13 23:14] LABS: Add Manual Diff / Slide Review NO; Basophils Absolute Auto 100 /uL (0-100); Eosinophils Absolute Auto 0 /uL (0-450); Eosinophils Percent Auto 0.3 % (2-4); Hematocrit 37.5 % (41-53); Hemoglobin 12.3 g/dL (13.5-17.5); Lymphocytes Absolute Auto 400 /uL (1100-4500); Lymphocytes Percent Auto 6.3 % (25-40); Mean Corpuscular HGB Conc 32.8 % (30-36); Mean Corpuscular Hemoglobin 31.3 PG (26-34); Mean Corpuscular Volume 95.6 fL (80-100); Monocytes Absolute Auto 300 /uL (0-900); Monocytes Percent Auto 4.9 % (3-14); Neutrophils Absolute Auto 4900 /uL (1500-7000); Neutrophils Percent Auto 87.5 % (50-75); Platelet Count 194 X10^3/uL (150-400); Red Blood Cell Count 3.92 X10^6/uL (4.5-5.9); Red Cell Distribution Width 14.5 % (11.6-14.8); White Blood Cell Count 5.6 X10^3/uL (4.5-11.0)
[2020-09-13 23:17] LABS: Lactate (Lactic Acid) 1.4 mmol/L (0.7-2.1)
[2020-09-13 23:21] LABS: Alanine Aminotransferase 29 IU/L (<50); Albumin 3.8 g/dL (3.5-5.0); Albumin Globulin Ratio 1.4 (1.0-2.8); Alkaline Phosphatase 55 U/L (38-126); Aspartate Aminotransferase 34 IU/L (17-59); BUN Creatinine Ratio 8.1 (6-22); Bilirubin Total 0.4 mg/dL (0.2-1.3); Blood Urea Nitrogen 101 mg/dL (9-20); Calcium 8.1 mg/dL (8.4-10.2); Carbon Dioxide 18 mmol/L (22-32); Chloride 105 mmol/L (98-107); Creatine Kinase 491 U/L (55-170); Estimated Glomerular Filt Rate 4.2 mL/min (>60); Ethanol (ETOH) < 10 mg/dL; Globulin 2.8 g/dL (1.7-4.1); Glucose 202 mg/dL (70-100); HEMOLYSIS < 15 (0-50); Magnesium 2.6 mg/dL (1.6-2.3); Sodium 137 mmol/L (137-145); Total Protein 6.6 g/dL (6.3-8.2)
[2020-09-13 23:26] LABS: Bacteria Urine None Seen
[2020-09-13] MEDS: methylPREDNISolone 125 MG/2 ML VIAL IV (23:27)
[2020-09-13 23:28] LABS: UR Morphine/Opiate cutoff 300 Negative (Negative); Ur Creatinine 20 (Normal); Ur Specific Gravity 1.025 (Normal); Urine Amphetamines Positive (Negative); Urine Barbiturates Negative (Negative); Urine Benzodiazepines Negative (Negative); Urine Cocaine Negative (Negative); Urine MDMA Negative (Negative); Urine Methadone Negative (Negative); Urine Methamphetamines Positive (Negative); Urine Oxycodone Negative (Negative); Urine Phencyclidine Negative (Negative); Urine Tetrahydrocannabinol Positive (Negative); Urine Tricyclic Antidepressant Negative (Negative); Urine pH 5 (Normal)
[2020-09-13] MEDS: SODIUM CHLORIDE 0.9% 1,000 ML 125 ML IV (23:28)
[2020-09-13 23:34] LABS: Troponin I 0.164 ng/mL (0.01-0.034)
[2020-09-14] VITALS (177 sets, daily range): BP systolic 116–221; BP diastolic 64–132; PULSE 55–97; RESP 11–39; O2SAT 49–100
[2020-09-14 00:19] LABS: NT-proBNP (BNP-Adult 18+) 221000 pg/mL (<125)
[2020-09-14 00:25] LABS: Culture Indicated Urine Cult Not Indicated; RBC Urine 1-5/HPF (0-5/HPF); WBC Urine 0-1/HPF (0-5/HPF)
[2020-09-14 00:31] LABS: COVID19 - ADMIT (NP swab/PCR) Negative (Negative)
[2020-09-14] MEDS: FUROSEMIDE 100 MG/10 ML VIAL 80 MG IV (00:34)
--- NOTE | 2020-09-14 00:40 | DI.US.S_ITS ---
PROCEDURE: US RENAL COMPLETE INDICATIONS: SEVERE RENAL FAILURE TECHNIQUE: Real-time scanning was performed of the kidneys and bladder, with image documentation. COMPARISON: [facility], CT, CT KIDNEY URETER BLADDER (KUB), 09/14/2020, 9:36. [facility], US, US RENAL COMPLETE, 11/08/2018, 16:50. FINDINGS: Kidneys: Kidneys are atrophic. Right kidney measures 5.4 cm long; left kidney not well seen. Right renal cortical thickness is 0.8 cm. Renal cortical echotexture is normal. No hydronephrosis or nephrolithiasis. No suspicious solid mass lesions. Bladder: Pre-void bladder volume is 45 mL. Pre-void images demonstrate no intraluminal masses or stones. On pre-void images, only the left ureteral jet is noted with color Doppler interrogation. (Of note, ureteral jets may not be detectable in up to 25% of cases due to insufficient differences in specific gravity between ureteral and bladder urine). Miscellaneous: No free pelvic fluid. IMPRESSION: 1. Limited exam demonstrating and atrophied right kidney. Left kidney is not visualized. The above findings are concordant with preliminary report. Dictated by: Lucinda Trinh M.D. on 09/14/2020 at 10:02 Approved by: Lucinda Trinh M.D. on 09/14/2020 at 10:04
--- NOTE | 2020-09-14 01:14 | ED_ITS ---
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 He was recently seen and evaluated at an outside facility and was diagnosed with pneumonia. He has been on a Zithromax seen in taking it as directed. He has had no fever or shaking chills and denies chest pain. He has had no nausea or vomiting. He denies any change in bowel habits such as constipation or diarrhea. He states that it he urinated a few hours ago and did not feel abnormal. She denies any trauma. He states he is supposed to take medications but does not and has not in quite some time. Related Data Home Medications Medication Instructions Recorded Confirmed amlodipine 10 mg tablet mg BID 09/14/20 azithromycin 250 mg tablet 250 mg PO DAILY 09/14/20 09/14/20 carvedilol 25 mg tablet mg BID 09/14/20 cefuroxime axetil 250 mg tablet 500 mg BID 09/14/20 09/14/20 Allergies Allergy/AdvReac Type Severity Reaction Status Date / Time No Known Drug Allergies Allergy Verified 09/14/20 13:20 Review of Systems <DO Rola Mckeon Last Filed: 09/21/20 01:39> Review of Systems Narrative: GENERAL: See HPI HEENT: Denies sinus pain, ear pain, sore throat, difficulty swallowing, dizziness. RESPIRATORY: See HPI CARDIOVASCULAR: Denies chest pain, palpitations, orthopnea, edema, GASTROINTESTINAL: Denies nausea, vomiting, abdominal pain, diarrhea, constipation, melena. : Denies dysuria, frequency, incontinence, hematuria, urinary retention. MUSCULOSKELETAL: denies weakness, joint pain, or bony pain SKIN: Denies rash, skin lesions, or other NEUROLOGIC: Denies weakness, headache, numbness, change in speech, confusion, seizures, incoordination. PSYCHIATRIC: No concerning psychosocial issues. 12 point review of systems is negative except for those stated above Patient History <Milton Kwon DO - Last Filed: 09/21/20 01:39> Medical History (Updated 09/14/20 @ 05:13 by Milton Kwon DO) COPD (chronic obstructive pulmonary disease) CVA (cerebral vascular accident) Social History household members: family Smoking Status: Current every day smoker Smoking Status: Current every day smoker alcohol intake frequency: holidays/special occasions only Substance Use Type: marijuana and methamphetamine Exam <DO Rola Mckeon Last Filed: 09/21/20 01:39> Narrative Exam Narrative: GENERAL: [60] year old patient appears older than stated age. Well-developed patient, in mild distress. Alert oriented x3, GCS 15, obviously chronically ill HEAD: Atraumatic. Normocephalic. Temporal wasting EYES: Pupils equal round and reactive. Extraocular motions intact. No scleral icterus. No injection or drainage. ENT: Nose without bleeding, purulent drainage. Throat without erythema, tonsillar hypertrophy or exudate. Airway patent. NECK: Trachea midline. Non tender CARDIOVASCULAR: Regular rate and rhythm without murmurs, gallops, or rubs. RESPIRATORY: Decreased breath sounds bilaterally with prolonged expiratory phase and faint crackles and right greater than left base GASTROINTESTINAL: Abdomen soft, non-tender, nondistended. EXTREMITIES: No edema or joint tenderness. BACK: Nontender without deformity or crepitance. No flank tenderness. NEURO: AOx3. SKIN: No rash or erythema of visible areas Initial Vital Signs Initial Vital Signs: Vital Signs Temperature 97.2 F L 09/13/20 22:14 Pulse Rate 69 09/13/20 22:14 Respiratory Rate 16 09/13/20 22:14 Blood Pressure 208/105 H 09/13/20 22:14 Pulse Oximetry 98 09/13/20 22:14 <Nereyda Miller DO - Last Filed: 09/15/20 08:53> Initial Vital Signs Initial Vital Signs: Vital Signs Temperature 97.2 F L 09/13/20 22:14 Pulse Rate 69 09/13/20 22:14 Respiratory Rate 16 09/13/20 22:14 Blood Pressure 208/105 H 09/13/20 22:14 Pulse Oximetry 98 09/13/20 22:14 Course <DO Rola Mckeon Last Filed: 09/21/20 01:39> Orders Ordered: Discontinued Medications Albuterol/Ipratropium (Albuterol/Ipratropium 3 Ml Ampul) 3 ml INH NOW ONE Stop: 09/14/20 03:52 Last Admin: 09/14/20 03:58 Dose: 3 ml Documented by: DEBBIE Aspirin (Aspirin 81 Mg Chew Tab) 324 mg PO NOW ONE Stop: 09/14/20 08:04 Last Admin: 09/14/20 08:27 Dose: 324 mg Documented by: SHANELL Furosemide (Furosemide 100 Mg/10 Ml Vial) 80 mg IV NOW ONE Stop: 09/14/20 00:26 Last Admin: 09/14/20 00:34 Dose: 80 mg Documented by: JULISSA Hydralazine HCl (Hydralazine 20 Mg/Ml Vial) 10 mg IV NOW ONE Stop: 09/14/20 03:09 Last Admin: 09/14/20 03:24 Dose: 10 mg Documented by: MACY Hydralazine HCl (Hydralazine 20 Mg/Ml Vial) 10 mg IV NOW ONE Stop: 09/14/20 12:41 Last Admin: 09/14/20 12:51 Dose: 10 mg Documented by: TIFF Sodium Chloride (Normal Saline 0.9%) 1,000 mls @ 125 mls/hr IV CONT JUAN Last Infusion: 09/14/20 03:03 Dose: 0 mls/hr Documented by: Infusion: 09/14/20 02:20 Dose: 999 mls/hr Documented by: Admin: 09/13/20 23:28 Dose: 125 mls/hr Documented by: JULISSA Ceftriaxone Sodium 1,000 mg/ (Sodium Chloride) 100 mls @ 200 mls/hr IV NOW ONE Stop: 09/14/20 06:44 Last Infusion: 09/14/20 07:40 Dose: 0 mls/hr Documented by: Admin: 09/14/20 06:59 Dose: 200 mls/hr Documented by: NOEMI Sodium Chloride (Normal Saline 0.9%) 1,000 mls @ 150 mls/hr IV CONT JUAN Last Infusion: 09/14/20 22:04 Dose: 0 mls/hr Documented by: Admin: 09/14/20 14:48 Dose: 150 mls/hr Documented by: SHANELL Sodium Chloride (Normal Saline 0.9%) 1,000 mls @ 100 mls/hr IV CONT JUAN Last Infusion: 09/15/20 00:20 Dose: 0 mls/hr Documented by: Admin: 09/14/20 22:25 Dose: 100 mls/hr Documented by: ASHELY Labetalol HCl (Labetalol 20 Mg/4 Ml Syringe) 20 mg IV NOW ONE Stop: 09/14/20 04:15 Last Admin: 09/14/20 04:27 Dose: 20 mg Documented by: MACY Labetalol HCl (Labetalol 100 Mg Tablet) 200 mg PO NOW ONE Stop: 09/14/20 10:42 Last Admin: 09/14/20 11:57 Dose: 200 mg Documented by: TIFF Lorazepam (Lorazepam 2 Mg/Ml Inj) 1 mg IV NOW ONE Stop: 09/14/20 05:01 Last Admin: 09/14/20 05:06 Dose: 1 mg Documented by: NOEMI Lorazepam (Lorazepam 2 Mg/Ml Inj) 0.5 mg IV Q4HR PRN PRN Reason: Anxiety Last Admin: 09/14/20 12:51 Dose: 0.5 mg Documented by: Admin: 09/14/20 08:27 Dose: 0.5 mg Documented by: SHANELL Methylprednisolone (Methylprednisolone 125 Mg/2 Ml Vial) 125 mg IV NOW ONE Stop: 09/13/20 22:48 Last Admin: 09/13/20 23:27 Dose: 125 mg Documented by: JULISSA Methylprednisolone (Methylprednisolone 125 Mg/2 Ml Vial) 125 mg IV NOW ONE Stop: 09/14/20 03:52 Last Admin: 09/14/20 04:27 Dose: 125 mg Documented by: MACY Reevaluation(s) Reevaluation #1: Patient blood pressure remaining high, hydralazine provided little change. Renal ultrasound has returned and demonstrates no visualization of the right ureteral jet and suggestion that the right kidney may be nonfunctional or hypo functioning Reevaluation #2: patient had slight improvement in creatinine and troponin after liter. FENA is 3.3%, possible ATN from recent ABX calls placed to various facilities including [facility], [place], [facility], and [facility]. No beds patient had better response to Labetalol, improved BP to 170s/80s, but no change in symptoms. He is becoming agitated and anxious. Ativan ordered which helps tremendously. Vital Signs Vital signs: Vital Signs - 8 hr 09/14/20 10:05 09/14/20 10:10 09/14/20 10:15 Pulse Rate 61 66 63 Respiratory Rate 14 19 23 Blood Pressure 210/121 H 198/115 H 192/106 H Pulse Oximetry 96 97 96 09/14/20 10:20 09/14/20 10:25 09/14/20 10:30 Pulse Rate 62 64 61 Respiratory Rate 21 12 19 Blood Pressure 192/113 H 188/119 H Pulse Oximetry 96 97 96 09/14/20 10:31 09/14/20 10:35 09/14/20 10:40 Pulse Rate 65 61 64 Respiratory Rate 14 14 14 Blood Pressure 195/108 H 191/114 H 183/118 H Pulse Oximetry 97 97 97 09/14/20 10:45 09/14/20 10:56 09/14/20 11:00 Pulse Rate 74 65 69 Respiratory Rate 27 H 25 H 19 Blood Pressure 197/116 H 221/124 H Pulse Oximetry 97 96 95 09/14/20 11:01 09/14/20 11:05 09/14/20 11:10 Pulse Rate 70 70 69 Respiratory Rate 23 23 24 Blood Pressure 179/107 H 177/116 H 193/124 H Pulse Oximetry 94 96 96 09/14/20 11:16 09/14/20 11:21 09/14/20 11:25 Pulse Rate 76 80 70 Respiratory Rate 27 H 21 16 Blood Pressure 193/98 H 182/126 H 214/115 H Pulse Oximetry 96 97 93 09/14/20 11:30 09/14/20 11:35 09/14/20 11:40 Pulse Rate 64 66 70 Respiratory Rate 16 15 13 Blood Pressure 203/109 H 205/120 H 200/119 H Pulse Oximetry 95 94 94 09/14/20 11:45 09/14/20 11:50 09/14/20 11:55 Pulse Rate 81 76 76 Respiratory Rate 19 18 16 Blood Pressure 205/132 H 204/123 H 199/125 H Pulse Oximetry 93 94 93 09/14/20 11:57 09/14/20 12:00 09/14/20 12:05 Pulse Rate 92 H 75 61 Respiratory Rate 20 17 Blood Pressure 199/125 H 216/108 H 194/107 H Pulse Oximetry 93 92 09/14/20 12:10 09/14/20 12:15 09/14/20 12:20 Pulse Rate 64 64 61 Respiratory Rate 15 14 13 Blood Pressure 188/110 H 187/109 H 190/116 H Pulse Oximetry 93 93 93 09/14/20 12:25 09/14/20 12:30 09/14/20 12:35 Pulse Rate 70 71 68 Respiratory Rate 11 L 11 L 14 Blood Pressure 190/120 H 183/116 H 185/106 H Pulse Oximetry 94 94 93 09/14/20 12:40 09/14/20 12:45 09/14/20 12:50 Pulse Rate 79 93 H 64 Respiratory Rate 12 28 H 20 Blood Pressure 195/116 H 193/107 H 191/109 H Pulse Oximetry 92 95 94 09/14/20 12:51 09/14/20 12:55 09/14/20 12:59 Pulse Rate 74 72 65 Respiratory Rate 16 21 Blood Pressure 191/109 H 183/105 H 176/99 H Pulse Oximetry 93 94 09/14/20 13:00 09/14/20 13:06 09/14/20 13:10 Pulse Rate 64 61 56 L Respiratory Rate 22 15 16 Blood Pressure 168/90 H 155/77 H 141/74 H Pulse Oximetry 95 94 94 09/14/20 13:15 09/14/20 13:20 09/14/20 13:25 Pulse Rate 72 57 L 58 L Respiratory Rate 21 15 17 Blood Pressure 145/86 H 143/85 H 145/80 H Pulse Oximetry 91 95 93 09/14/20 13:30 09/14/20 13:35 09/14/20 13:40 Pulse Rate 62 59 L 64 Respiratory Rate 18 20 26 H Blood Pressure 138/83 133/78 135/83 Pulse Oximetry 94 94 94 09/14/20 13:45 09/14/20 13:50 09/14/20 13:55 Pulse Rate 58 L 57 L 61 Respiratory Rate 24 19 19 Blood Pressure 133/64 132/77 136/77 Pulse Oximetry 95 95 96 09/14/20 14:00 09/14/20 14:05 09/14/20 14:11 Pulse Rate 60 59 L 69 Respiratory Rate 30 H 14 20 Blood Pressure 132/68 134/75 135/88 Pulse Oximetry 96 96 95 09/14/20 14:16 09/14/20 14:20 09/14/20 14:25 Pulse Rate 66 57 L 65 Respiratory Rate 23 15 18 Blood Pressure 135/82 133/79 136/81 Pulse Oximetry 94 95 95 09/14/20 14:30 09/14/20 14:36 09/14/20 14:40 Pulse Rate 59 L 69 67 Respiratory Rate 23 30 H 23 Blood Pressure 135/73 144/85 H 131/82 Pulse Oximetry 94 95 96 09/14/20 14:46 09/14/20 14:50 09/14/20 15:00 Pulse Rate 69 65 55 L Respiratory Rate 25 H 34 H 28 H Blood Pressure 138/69 150/78 H Pulse Oximetry 97 96 97 09/14/20 15:01 09/14/20 15:06 09/14/20 15:10 Pulse Rate 56 L 58 L 61 Respiratory Rate 18 20 20 Blood Pressure 141/76 H 140/86 134/81 Pulse Oximetry 96 96 94 09/14/20 15:15 09/14/20 15:20 09/14/20 15:25 Pulse Rate 56 L 64 59 L Respiratory Rate 19 15 29 H Blood Pressure 134/71 125/72 120/64 Pulse Oximetry 93 100 89 L 09/14/20 15:30 09/14/20 15:35 09/14/20 15:40 Pulse Rate 60 62 63 Respiratory Rate 34 H 24 25 H Blood Pressure 116/64 121/65 116/66 Pulse Oximetry 95 95 97 09/14/20 15:45 09/14/20 15:50 09/14/20 15:55 Pulse Rate 66 67 62 Respiratory Rate 39 H 24 28 H Blood Pressure 121/67 135/66 135/65 Pulse Oximetry 95 99 99 09/14/20 16:00 09/14/20 16:01 09/14/20 16:05 Pulse Rate 71 68 61 Respiratory Rate 24 32 H 31 H Blood Pressure 142/67 H 135/66 Pulse Oximetry 98 98 100 09/14/20 16:10 09/14/20 16:15 09/14/20 16:20 Pulse Rate 73 74 75 Respiratory Rate 29 H 17 16 Blood Pressure 138/72 143/76 H 144/72 H Pulse Oximetry 98 97 96 09/14/20 16:25 09/14/20 16:30 09/14/20 16:35 Pulse Rate 76 79 75 Respiratory Rate 17 18 28 H Blood Pressure 130/81 138/86 148/103 H Pulse Oximetry 96 94 94 09/14/20 16:40 09/14/20 16:45 09/14/20 16:50 Pulse Rate 63 66 59 L Respiratory Rate 19 15 18 Blood Pressure 154/92 H 156/90 H 144/100 H Pulse Oximetry 94 92 91 09/14/20 16:55 09/14/20 17:00 09/14/20 17:04 Pulse Rate 73 70 65 Respiratory Rate 23 26 H 24 Blood Pressure 169/86 H 161/90 H Pulse Oximetry 94 88 L 90 L 09/14/20 17:05 Pulse Rate Respiratory Rate Blood Pressure 174/89 H Pulse Oximetry <Nereyda Miller, - Last Filed: 09/15/20 08:53> Orders Ordered: Discontinued Medications Albuterol/Ipratropium (Albuterol/Ipratropium 3 Ml Ampul) 3 ml INH NOW ONE Stop: 09/14/20 03:52 Last Admin: 09/14/20 03:58 Dose: 3 ml Documented by: DEBBIE Aspirin (Aspirin 81 Mg Chew Tab) 324 mg PO NOW ONE Stop: 09/14/20 08:04 Last Admin: 09/14/20 08:27 Dose: 324 mg Documented by: SHANELL Furosemide (Furosemide 100 Mg/10 Ml Vial) 80 mg IV NOW ONE Stop: 09/14/20 00:26 Last Admin: 09/14/20 00:34 Dose: 80 mg Documented by: [email or web address] Hydralazine HCl (Hydralazine 20 Mg/Ml Vial) 10 mg IV NOW ONE Stop: 09/14/20 03:09 Last Admin: 09/14/20 03:24 Dose: 10 mg Documented by: MACY Hydralazine HCl (Hydralazine 20 Mg/Ml Vial) 10 mg IV NOW ONE Stop: 09/14/20 12:41 Last Admin: 09/14/20 12:51 Dose: 10 mg Documented by: TIFF Sodium Chloride (Normal Saline 0.9%) 1,000 mls @ 125 mls/hr IV CONT JUAN Last Infusion: 09/14/20 03:03 Dose: 0 mls/hr Documented by: Infusion: 09/14/20 02:20 Dose: 999 mls/hr Documented by: Admin: 09/13/20 23:28 Dose: 125 mls/hr Documented by: JULISSA Ceftriaxone Sodium 1,000 mg/ (Sodium Chloride) 100 mls @ 200 mls/hr IV NOW ONE Stop: 09/14/20 06:44 Last Infusion: 09/14/20 07:40 Dose: 0 mls/hr Documented by: Admin: 09/14/20 06:59 Dose: 200 mls/hr Documented by: NOEMI Sodium Chloride (Normal Saline 0.9%) 1,000 mls @ 150 mls/hr IV CONT JUAN Last Infusion: 09/14/20 22:04 Dose: 0 mls/hr Documented by: Admin: 09/14/20 14:48 Dose: 150 mls/hr Documented by: SHANELL Sodium Chloride (Normal Saline 0.9%) 1,000 mls @ 100 mls/hr IV CONT JUAN Last Infusion: 09/15/20 00:20 Dose: 0 mls/hr Documented by: Admin: 09/14/20 22:25 Dose: 100 mls/hr Documented by: ASHELY Labetalol HCl (Labetalol 20 Mg/4 Ml Syringe) 20 mg IV NOW ONE Stop: 09/14/20 04:15 Last Admin: 09/14/20 04:27 Dose: 20 mg Documented by: MACY Labetalol HCl (Labetalol 100 Mg Tablet) 200 mg PO NOW ONE Stop: 09/14/20 10:42 Last Admin: 09/14/20 11:57 Dose: 200 mg Documented by: TIFF Lorazepam (Lorazepam 2 Mg/Ml Inj) 1 mg IV NOW ONE Stop: 09/14/20 05:01 Last Admin: 09/14/20 05:06 Dose: 1 mg Documented by: NOEMI Lorazepam (Lorazepam 2 Mg/Ml Inj) 0.5 mg IV Q4HR PRN PRN Reason: Anxiety Last Admin: 09/14/20 12:51 Dose: 0.5 mg Documented by: Admin: 09/14/20 08:27 Dose: 0.5 mg Documented by: SHANELL Methylprednisolone (Methylprednisolone 125 Mg/2 Ml Vial) 125 mg IV NOW ONE Stop: 09/13/20 22:48 Last Admin: 09/13/20 23:27 Dose: 125 mg Documented by: JSHAFF Methylprednisolone (Methylprednisolone 125 Mg/2 Ml Vial) 125 mg IV NOW ONE Stop: 09/14/20 03:52 Last Admin: 09/14/20 04:27 Dose: 125 mg Documented by: MACY Reevaluation(s) Reevaluation #3: Patient signed out to myself by Dr. Kwon, seen at bedside. Patient was initially sleeping. He awoke he seems slightly agitated. Patient appears somewhat disheveled. He only concern at this time is having ice chips. Patient's labs, imaging and EKG were reviewed by myself. Patient does have new EKGs in comparison to a prior from 02/11/2019. No leukocytosis, hemoglobin of 12 down from 15 19 in 2018. Normal platelets. Patient has significantly elevated renal function with a creatinine of 12, trending to 11 on recheck this morning, patient was 2.5 a year ago. Like to lytes show a CO2 of 17 but otherwise a normal sodium and potassium. Patient's BNP is significantly elevated but this is in the setting of renal failure, patient's troponin is also elevated but trending down words also in the setting of renal failure but with new EKG changes., methamphetamines and marijuana and negative be for EtOH. Patient is COVID negative. No signs of urine infection. CXR and renal imaging shows mild atypical pneumonia and left kidney functioning appropriately and right kidney appears to have no ureteral jet. Patient had repeat labs ordered. KUB CT shows b/l atrophic changes, and new infrarenal abdominal aortic aneurysm, patient bp elevated and improved with oral medications. CT head is negative. Patient agitated and improved with ativan. Son at bedside and shared DPOA paperwork, he and patient are both on there. Patient signed out to Dr. Dacosta while awaiting transfer. Patient hemodynamically stable with no hypoxia and continued urine output at 40-50cc/hr. Vital Signs Vital signs: Vital Signs - 8 hr 09/14/20 10:05 09/14/20 10:10 09/14/20 10:15 Pulse Rate 61 66 63 Respiratory Rate 14 19 23 Blood Pressure 210/121 H 198/115 H 192/106 H Pulse Oximetry 96 97 96 09/14/20 10:20 09/14/20 10:25 09/14/20 10:30 Pulse Rate 62 64 61 Respiratory Rate 21 12 19 Blood Pressure 192/113 H 188/119 H Pulse Oximetry 96 97 96 09/14/20 10:31 09/14/20 10:35 09/14/20 10:40 Pulse Rate 65 61 64 Respiratory Rate 14 14 14 Blood Pressure 195/108 H 191/114 H 183/118 H Pulse Oximetry 97 97 97 09/14/20 10:45 09/14/20 10:56 09/14/20 11:00 Pulse Rate 74 65 69 Respiratory Rate 27 H 25 H 19 Blood Pressure 197/116 H 221/124 H Pulse Oximetry 97 96 95 09/14/20 11:01 09/14/20 11:05 09/14/20 11:10 Pulse Rate 70 70 69 Respiratory Rate 23 23 24 Blood Pressure 179/107 H 177/116 H 193/124 H Pulse Oximetry 94 96 96 09/14/20 11:16 09/14/20 11:21 09/14/20 11:25 Pulse Rate 76 80 70 Respiratory Rate 27 H 21 16 Blood Pressure 193/98 H 182/126 H 214/115 H Pulse Oximetry 96 97 93 09/14/20 11:30 09/14/20 11:35 09/14/20 11:40 Pulse Rate 64 66 70 Respiratory Rate 16 15 13 Blood Pressure 203/109 H 205/120 H 200/119 H Pulse Oximetry 95 94 94 09/14/20 11:45 09/14/20 11:50 09/14/20 11:55 Pulse Rate 81 76 76 Respiratory Rate 19 18 16 Blood Pressure 205/132 H 204/123 H 199/125 H Pulse Oximetry 93 94 93 09/14/20 11:57 09/14/20 12:00 09/14/20 12:05 Pulse Rate 92 H 75 61 Respiratory Rate 20 17 Blood Pressure 199/125 H 216/108 H 194/107 H Pulse Oximetry 93 92 09/14/20 12:10 09/14/20 12:15 09/14/20 12:20 Pulse Rate 64 64 61 Respiratory Rate 15 14 13 Blood Pressure 188/110 H 187/109 H 190/116 H Pulse Oximetry 93 93 93 09/14/20 12:25 09/14/20 12:30 09/14/20 12:35 Pulse Rate 70 71 68 Respiratory Rate 11 L 11 L 14 Blood Pressure 190/120 H 183/116 H 185/106 H Pulse Oximetry 94 94 93 09/14/20 12:40 09/14/20 12:45 09/14/20 12:50 Pulse Rate 79 93 H 64 Respiratory Rate 12 28 H 20 Blood Pressure 195/116 H 193/107 H 191/109 H Pulse Oximetry 92 95 94 09/14/20 12:51 09/14/20 12:55 09/14/20 12:59 Pulse Rate 74 72 65 Respiratory Rate 16 21 Blood Pressure 191/109 H 183/105 H 176/99 H Pulse Oximetry 93 94 09/14/20 13:00 09/14/20 13:06 09/14/20 13:10 Pulse Rate 64 61 56 L Respiratory Rate 22 15 16 Blood Pressure 168/90 H 155/77 H 141/74 H Pulse Oximetry 95 94 94 09/14/20 13:15 09/14/20 13:20 09/14/20 13:25 Pulse Rate 72 57 L 58 L Respiratory Rate 21 15 17 Blood Pressure 145/86 H 143/85 H 145/80 H Pulse Oximetry 91 95 93 09/14/20 13:30 09/14/20 13:35 09/14/20 13:40 Pulse Rate 62 59 L 64 Respiratory Rate 18 20 26 H Blood Pressure 138/83 133/78 135/83 Pulse Oximetry 94 94 94 09/14/20 13:45 09/14/20 13:50 09/14/20 13:55 Pulse Rate 58 L 57 L 61 Respiratory Rate 24 19 19 Blood Pressure 133/64 132/77 136/77 Pulse Oximetry 95 95 96 09/14/20 14:00 09/14/20 14:05 09/14/20 14:11 Pulse Rate 60 59 L 69 Respiratory Rate 30 H 14 20 Blood Pressure 132/68 134/75 135/88 Pulse Oximetry 96 96 95 09/14/20 14:16 09/14/20 14:20 09/14/20 14:25 Pulse Rate 66 57 L 65 Respiratory Rate 23 15 18 Blood Pressure 135/82 133/79 136/81 Pulse Oximetry 94 95 95 09/14/20 14:30 09/14/20 14:36 07/06/21 14:40 Pulse Rate 59 L 69 67 Respiratory Rate 23 30 H 23 Blood Pressure 135/73 144/85 H 131/82 Pulse Oximetry 94 95 96 09/14/20 14:46 09/14/20 14:50 09/14/20 15:00 Pulse Rate 69 65 55 L Respiratory Rate 25 H 34 H 28 H Blood Pressure 138/69 150/78 H Pulse Oximetry 97 96 97 09/14/20 15:01 09/14/20 15:06 09/14/20 15:10 Pulse Rate 56 L 58 L 61 Respiratory Rate 18 20 20 Blood Pressure 141/76 H 140/86 134/81 Pulse Oximetry 96 96 94 09/14/20 15:15 09/14/20 15:20 09/14/20 15:25 Pulse Rate 56 L 64 59 L Respiratory Rate 19 15 29 H Blood Pressure 134/71 125/72 120/64 Pulse Oximetry 93 100 89 L 09/14/20 15:30 09/14/20 15:35 09/14/20 15:40 Pulse Rate 60 62 63 Respiratory Rate 34 H 24 25 H Blood Pressure 116/64 121/65 116/66 Pulse Oximetry 95 95 97 09/14/20 15:45 09/14/20 15:50 09/14/20 15:55 Pulse Rate 66 67 62 Respiratory Rate 39 H 24 28 H Blood Pressure 121/67 135/66 135/65 Pulse Oximetry 95 99 99 09/14/20 16:00 09/14/20 16:01 09/14/20 16:05 Pulse Rate 71 68 61 Respiratory Rate 24 32 H 31 H Blood Pressure 142/67 H 135/66 Pulse Oximetry 98 98 100 09/14/20 16:10 09/14/20 16:15 09/14/20 16:20 Pulse Rate 73 74 75 Respiratory Rate 29 H 17 16 Blood Pressure 138/72 143/76 H 144/72 H Pulse Oximetry 98 97 96 09/14/20 16:25 09/14/20 16:30 09/14/20 16:35 Pulse Rate 76 79 75 Respiratory Rate 17 18 28 H Blood Pressure 130/81 138/86 148/103 H Pulse Oximetry 96 94 94 09/14/20 16:40 09/14/20 16:45 09/14/20 16:50 Pulse Rate 63 66 59 L Respiratory Rate 19 15 18 Blood Pressure 154/92 H 156/90 H 144/100 H Pulse Oximetry 94 92 91 09/14/20 16:55 09/14/20 17:00 09/14/20 17:04 Pulse Rate 73 70 65 Respiratory Rate 23 26 H 24 Blood Pressure 169/86 H 161/90 H Pulse Oximetry 94 88 L 90 L 09/14/20 17:05 Pulse Rate Respiratory Rate Blood Pressure 174/89 H Pulse Oximetry MDM - Altered Mental Status <Milton Kwon DO - Last Filed: 09/21/20 01:39> Lab Data Result diagrams: 09/14/20 20:15 09/14/20 20:15 Labs: Lab Results 09/13/20 09/13/20 09/13/20 Range/Units 22:25 22:31 22:57 WBC 5.6 (4.5-11.0) X10^3/uL RBC 3.92 L (4.5-5.9) X10^6/uL Hgb 12.3 L (13.5-17.5) g/dL Hct 37.5 L (41-53) % MCV 95.6 (80-100) fL MCH 31.3 (26-34) PG MCHC 32.8 (30-36) % RDW 14.5 (11.6-14.8) % Plt Count 194 (150-400) X10^3/uL Neut % (Auto) 87.5 H (50-75) % Lymph % (Auto) 6.3 L (25-40) % [place] % (Auto) 4.9 (3-14) % Eos % (Auto) 0.3 L (2-4) % Baso % (Auto) 1.0 (0-2) % Neut # (Auto) 4900 (0954-1645) /uL Lymph # (Auto) 400 L (4540-9457) /uL [place] # (Auto) 300 (0-900) /uL Eos # (Auto) 0 (0-450) /uL Baso # (Auto) 100 (0-100) /uL Plt Morphology Comment RBC Morphology Sodium (137-145) mmol/L Potassium (3.4-5.1) mmol/L Chloride (98-107) mmol/L Carbon Dioxide (22-32) mmol/L BUN (9-20) mg/dL Creatinine (0.66-1.25) mg/dL Estimated GFR (>60) mL/min BUN/Creatinine Ratio (6-22) Glucose (70-100) mg/dL Lactate (0.7-2.1) mmol/L Calcium (8.4-10.2) mg/dL Magnesium (1.6-2.3) mg/dL Total Bilirubin (0.2-1.3) mg/dL AST (17-59) IU/L ALT (<50) IU/L Alkaline Phosphatase (38-126) U/L Total Creatine Kinase (55-170) U/L CK-MB (CK-2) (<2.37) ng/mL CK-MB (CK-2) Rel Index (1.5-5.0) % Troponin I (0.01-0.034) ng/mL NT-Pro-B Natriuret Pep (<125) pg/mL Total Protein (6.3-8.2) g/dL Albumin (3.5-5.0) g/dL Globulin (1.7-4.1) g/dL Albumin/Globulin Ratio (1.0-2.8) Urine RBC (0-5/HPF) Urine WBC (0-5/HPF) Urine Bacteria (None) Ur Culture Indicated? Ur Random Sodium (30-90) mmol/L Urine Creatinine mg/dL U Opiates 300ng/mL cut Negative (Negative) Ur Oxycodone Screen Negative (Negative) Urine Methadone Screen Negative (Negative) Ur Barbiturates Screen Negative (Negative) U Tricyclic Antidepress Negative (Negative) Ur Phencyclidine Scrn Negative (Negative) Ur Amphetamines Screen Positive H (Negative) U Methamphetamines Scrn Positive H (Negative) Ur MDMA Scrn (Ecstasy) Negative (Negative) U Benzodiazepines Scrn Negative (Negative) Urine Cocaine Screen Negative (Negative) U Marijuana (THC) Screen Positive H (Negative) Ethyl Alcohol ( - 10) mg/dL SARS-CoV-2 (PCR) Negative (Negative) 09/13/20 09/13/20 09/13/20 Range/Units 22:57 22:57 23:10 WBC (4.5-11.0) X10^3/uL RBC (4.5-5.9) X10^6/uL Hgb (13.5-17.5) g/dL Hct (41-53) % MCV (80-100) fL MCH (26-34) PG MCHC (30-36) % RDW (11.6-14.8) % Plt Count (150-400) X10^3/uL Neut % (Auto) (50-75) % Lymph % (Auto) (25-40) % [place] % (Auto) (3-14) % Eos % (Auto) (2-4) % Baso % (Auto) (0-2) % Neut # (Auto) (8339-6111) /uL Lymph # (Auto) (3902-1907) /uL [place] # (Auto) (0-900) /uL Eos # (Auto) (0-450) /uL Baso # (Auto) (0-100) /uL Plt Morphology Comment RBC Morphology Sodium 137 (137-145) mmol/L Potassium 4.0 (3.4-5.1) mmol/L Chloride 105 (98-107) mmol/L Carbon Dioxide 18 L (22-32) mmol/L BUN 101 H (9-20) mg/dL Creatinine 12.4 H* (0.66-1.25) mg/dL Estimated GFR 4.2 L (>60) mL/min BUN/Creatinine Ratio 8.1 (6-22) Glucose 202 H (70-100) mg/dL Lactate 1.4 (0.7-2.1) mmol/L Calcium 8.1 L (8.4-10.2) mg/dL Magnesium 2.6 H (1.6-2.3) mg/dL Total Bilirubin 0.4 (0.2-1.3) mg/dL AST 34 (17-59) IU/L ALT 29 (<50) IU/L Alkaline Phosphatase 55 (38-126) U/L Total Creatine Kinase 491 H (55-170) U/L CK-MB (CK-2) 14.80 H (<2.37) ng/mL CK-MB (CK-2) Rel Index 3.0 (1.5-5.0) % Troponin I 0.164 H* (0.01-0.034) ng/mL NT-Pro-B Natriuret Pep 118783 H (<125) pg/mL Total Protein 6.6 (6.3-8.2) g/dL Albumin 3.8 (3.5-5.0) g/dL Globulin 2.8 (1.7-4.1) g/dL Albumin/Globulin Ratio 1.4 (1.0-2.8) Urine RBC 1-5/hpf (0-5/HPF) Urine WBC 0-1/hpf (0-5/HPF) Urine Bacteria None seen (None) Ur Culture Indicated? Cult not indicated Ur Random Sodium (30-90) mmol/L Urine Creatinine mg/dL U Opiates 300ng/mL cut (Negative) Ur Oxycodone Screen (Negative) Urine Methadone Screen (Negative) Ur Barbiturates Screen (Negative) U Tricyclic Antidepress (Negative) Ur Phencyclidine Scrn (Negative) Ur Amphetamines Screen (Negative) U Methamphetamines Scrn (Negative) Ur MDMA Scrn (Ecstasy) (Negative) U Benzodiazepines Scrn (Negative) Urine Cocaine Screen (Negative) U Marijuana (THC) Screen (Negative) Ethyl Alcohol < 10 ( - 10) mg/dL SARS-CoV-2 (PCR) (Negative) 09/13/20 09/14/20 09/14/20 Range/Units 23:10 02:30 20:15 WBC 3.3 L (4.5-11.0) X10^3/uL RBC 3.60 L (4.5-5.9) X10^6/uL Hgb 11.4 L (13.5-17.5) g/dL Hct 34.4 L (41-53) % MCV 95.4 (80-100) fL MCH 31.6 (26-34) PG MCHC 33.1 (30-36) % RDW 14.3 (11.6-14.8) % Plt Count 189 (150-400) X10^3/uL Neut % (Auto) 91.4 H (50-75) % Lymph % (Auto) 6.7 L (25-40) % [place] % (Auto) 1.6 L (3-14) % Eos % (Auto) 0.0 L (2-4) % Baso % (Auto) 0.3 (0-2) % Neut # (Auto) 3000 (2934-2286) /uL Lymph # (Auto) 200 L (6950-7714) /uL [place] # (Auto) 100 (0-900) /uL Eos # (Auto) 0 (0-450) /uL Baso # (Auto) 0 (0-100) /uL Plt Morphology Comment RBC Morphology Normal morphology Sodium 137 (137-145) mmol/L Potassium 4.4 (3.4-5.1) mmol/L Chloride 105 (98-107) mmol/L Carbon Dioxide 17 L (22-32) mmol/L BUN 100 H (9-20) mg/dL Creatinine 11.9 H* (0.66-1.25) mg/dL Estimated GFR 4.4 L (>60) mL/min BUN/Creatinine Ratio 8.4 (6-22) Glucose 164 H (70-100) mg/dL Lactate (0.7-2.1) mmol/L Calcium 7.9 L (8.4-10.2) mg/dL Magnesium (1.6-2.3) mg/dL Total Bilirubin (0.2-1.3) mg/dL AST (17-59) IU/L ALT (<50) IU/L Alkaline Phosphatase (38-126) U/L Total Creatine Kinase (55-170) U/L CK-MB (CK-2) (<2.37) ng/mL CK-MB (CK-2) Rel Index (1.5-5.0) % Troponin I 0.146 H* (0.01-0.034) ng/mL NT-Pro-B Natriuret Pep (<125) pg/mL Total Protein (6.3-8.2) g/dL Albumin (3.5-5.0) g/dL Globulin (1.7-4.1) g/dL Albumin/Globulin Ratio (1.0-2.8) Urine RBC (0-5/HPF) Urine WBC (0-5/HPF) Urine Bacteria (None) Ur Culture Indicated? Ur Random Sodium 41 (30-90) mmol/L Urine Creatinine 107.6 mg/dL U Opiates 300ng/mL cut (Negative) Ur Oxycodone Screen (Negative) Urine Methadone Screen (Negative) Ur Barbiturates Screen (Negative) U Tricyclic Antidepress (Negative) Ur Phencyclidine Scrn (Negative) Ur Amphetamines Screen (Negative) U Methamphetamines Scrn (Negative) Ur MDMA Scrn (Ecstasy) (Negative) U Benzodiazepines Scrn (Negative) Urine Cocaine Screen (Negative) U Marijuana (THC) Screen (Negative) Ethyl Alcohol ( - 10) mg/dL SARS-CoV-2 (PCR) (Negative) 09/14/20 Range/Units 20:15 WBC (4.5-11.0) X10^3/uL RBC (4.5-5.9) X10^6/uL Hgb (13.5-17.5) g/dL Hct (41-53) % MCV (80-100) fL MCH (26-34) PG MCHC (30-36) % RDW (11.6-14.8) % Plt Count (150-400) X10^3/uL Neut % (Auto) (50-75) % Lymph % (Auto) (25-40) % [place] % (Auto) (3-14) % Eos % (Auto) (2-4) % Baso % (Auto) (0-2) % Neut # (Auto) (6274-8006) /uL Lymph # (Auto) (6349-4551) /uL [place] # (Auto) (0-900) /uL Eos # (Auto) (0-450) /uL Baso # (Auto) (0-100) /uL Plt Morphology Comment RBC Morphology Sodium 137 (137-145) mmol/L Potassium 4.2 (3.4-5.1) mmol/L Chloride 107 (98-107) mmol/L Carbon Dioxide 16 L (22-32) mmol/L BUN 103 H (9-20) mg/dL Creatinine 11.70 H* (0.66-1.25) mg/dL Estimated GFR 4.5 L (>60) mL/min BUN/Creatinine Ratio 8.8 (6-22) Glucose 149 H (70-100) mg/dL Lactate (0.7-2.1) mmol/L Calcium 8.0 L (8.4-10.2) mg/dL Magnesium (1.6-2.3) mg/dL Total Bilirubin (0.2-1.3) mg/dL AST (17-59) IU/L ALT (<50) IU/L Alkaline Phosphatase (38-126) U/L Total Creatine Kinase (55-170) U/L CK-MB (CK-2) (<2.37) ng/mL CK-MB (CK-2) Rel Index (1.5-5.0) % Troponin I (0.01-0.034) ng/mL NT-Pro-B Natriuret Pep (<125) pg/mL Total Protein (6.3-8.2) g/dL Albumin (3.5-5.0) g/dL Globulin (1.7-4.1) g/dL Albumin/Globulin Ratio (1.0-2.8) Urine RBC (0-5/HPF) Urine WBC (0-5/HPF) Urine Bacteria (None) Ur Culture Indicated? Ur Random Sodium (30-90) mmol/L Urine Creatinine mg/dL U Opiates 300ng/mL cut (Negative) Ur Oxycodone Screen (Negative) Urine Methadone Screen (Negative) Ur Barbiturates Screen (Negative) U Tricyclic Antidepress (Negative) Ur Phencyclidine Scrn (Negative) Ur Amphetamines Screen (Negative) U Methamphetamines Scrn (Negative) Ur MDMA Scrn (Ecstasy) (Negative) U Benzodiazepines Scrn (Negative) Urine Cocaine Screen (Negative) U Marijuana (THC) Screen (Negative) Ethyl Alcohol ( - 10) mg/dL SARS-CoV-2 (PCR) (Negative) Urine Dip Bedside Urine Glucose 250 mg/dl Bedside Urine Bilirubin - Negative Bedside Urine Ketone - Negative Urine Specific Freeman 1.025 Bedside Urine Occult Blood +++ Bedside Urine pH 6.0 Bedside Urine Protein +++ 300 Bedside Urine Urobilinogen - Negative Bedside Urine Nitrite - Negative Bedside Urine Leukocytes - Negative Esterase <Nereyda Miller, DO - Last Filed: 09/15/20 08:53> Lab Data Labs: Lab Results 09/13/20 09/13/20 09/13/20 Range/Units 22:25 22:31 22:57 WBC 5.6 (4.5-11.0) X10^3/uL RBC 3.92 L (4.5-5.9) X10^6/uL Hgb 12.3 L (13.5-17.5) g/dL Hct 37.5 L (41-53) % MCV 95.6 (80-100) fL MCH 31.3 (26-34) PG MCHC 32.8 (30-36) % RDW 14.5 (11.6-14.8) % Plt Count 194 (150-400) X10^3/uL Neut % (Auto) 87.5 H (50-75) % Lymph % (Auto) 6.3 L (25-40) % [place] % (Auto) 4.9 (3-14) % Eos % (Auto) 0.3 L (2-4) % Baso % (Auto) 1.0 (0-2) % Neut # (Auto) 4900 (5291-2254) /uL Lymph # (Auto) 400 L (3118-7962) /uL [place] # (Auto) 300 (0-900) /uL Eos # (Auto) 0 (0-450) /uL Baso # (Auto) 100 (0-100) /uL Plt Morphology Comment RBC Morphology Sodium (137-145) mmol/L Potassium (3.4-5.1) mmol/L Chloride (98-107) mmol/L Carbon Dioxide (22-32) mmol/L BUN (9-20) mg/dL Creatinine (0.66-1.25) mg/dL Estimated GFR (>60) mL/min BUN/Creatinine Ratio (6-22) Glucose (70-100) mg/dL Lactate (0.7-2.1) mmol/L Calcium (8.4-10.2) mg/dL Magnesium (1.6-2.3) mg/dL Total Bilirubin (0.2-1.3) mg/dL AST (17-59) IU/L ALT (<50) IU/L Alkaline Phosphatase (38-126) U/L Total Creatine Kinase (55-170) U/L CK-MB (CK-2) (<2.37) ng/mL CK-MB (CK-2) Rel Index (1.5-5.0) % Troponin I (0.01-0.034) ng/mL NT-Pro-B Natriuret Pep (<125) pg/mL Total Protein (6.3-8.2) g/dL Albumin (3.5-5.0) g/dL Globulin (1.7-4.1) g/dL Albumin/Globulin Ratio (1.0-2.8) Urine RBC (0-5/HPF) Urine WBC (0-5/HPF) Urine Bacteria (None) Ur Culture Indicated? Ur Random Sodium (30-90) mmol/L Urine Creatinine mg/dL U Opiates 300ng/mL cut Negative (Negative) Ur Oxycodone Screen Negative (Negative) Urine Methadone Screen Negative (Negative) Ur Barbiturates Screen Negative (Negative) U Tricyclic Antidepress Negative (Negative) Ur Phencyclidine Scrn Negative (Negative) Ur Amphetamines Screen Positive H (Negative) U Methamphetamines Scrn Positive H (Negative) Ur MDMA Scrn (Ecstasy) Negative (Negative) U Benzodiazepines Scrn Negative (Negative) Urine Cocaine Screen Negative (Negative) U Marijuana (THC) Screen Positive H (Negative) Ethyl Alcohol ( - 10) mg/dL SARS-CoV-2 (PCR) Negative (Negative) 09/13/20 09/13/20 09/13/20 Range/Units 22:57 22:57 23:10 WBC (4.5-11.0) X10^3/uL RBC (4.5-5.9) X10^6/uL Hgb (13.5-17.5) g/dL Hct (41-53) % MCV (80-100) fL MCH (26-34) PG MCHC (30-36) % RDW (11.6-14.8) % Plt Count (150-400) X10^3/uL Neut % (Auto) (50-75) % Lymph % (Auto) (25-40) % [place] % (Auto) (3-14) % Eos % (Auto) (2-4) % Baso % (Auto) (0-2) % Neut # (Auto) (7122-1401) /uL Lymph # (Auto) (4343-5292) /uL [place] # (Auto) (0-900) /uL Eos # (Auto) (0-450) /uL Baso # (Auto) (0-100) /uL Plt Morphology Comment RBC Morphology Sodium 137 (137-145) mmol/L Potassium 4.0 (3.4-5.1) mmol/L Chloride 105 (98-107) mmol/L Carbon Dioxide 18 L (22-32) mmol/L BUN 101 H (9-20) mg/dL Creatinine 12.4 H* (0.66-1.25) mg/dL Estimated GFR 4.2 L (>60) mL/min BUN/Creatinine Ratio 8.1 (6-22) Glucose 202 H (70-100) mg/dL Lactate 1.4 (0.7-2.1) mmol/L Calcium 8.1 L (8.4-10.2) mg/dL Magnesium 2.6 H (1.6-2.3) mg/dL Total Bilirubin 0.4 (0.2-1.3) mg/dL AST 34 (17-59) IU/L ALT 29 (<50) IU/L Alkaline Phosphatase 55 (38-126) U/L Total Creatine Kinase 491 H (55-170) U/L CK-MB (CK-2) 14.80 H (<2.37) ng/mL CK-MB (CK-2) Rel Index 3.0 (1.5-5.0) % Troponin I 0.164 H* (0.01-0.034) ng/mL NT-Pro-B Natriuret Pep 488028 H (<125) pg/mL Total Protein 6.6 (6.3-8.2) g/dL Albumin 3.8 (3.5-5.0) g/dL Globulin 2.8 (1.7-4.1) g/dL Albumin/Globulin Ratio 1.4 (1.0-2.8) Urine RBC 1-5/hpf (0-5/HPF) Urine WBC 0-1/hpf (0-5/HPF) Urine Bacteria None seen (None) Ur Culture Indicated? Cult not indicated Ur Random Sodium (30-90) mmol/L Urine Creatinine mg/dL U Opiates 300ng/mL cut (Negative) Ur Oxycodone Screen (Negative) Urine Methadone Screen (Negative) Ur Barbiturates Screen (Negative) U Tricyclic Antidepress (Negative) Ur Phencyclidine Scrn (Negative) Ur Amphetamines Screen (Negative) U Methamphetamines Scrn (Negative) Ur MDMA Scrn (Ecstasy) (Negative) U Benzodiazepines Scrn (Negative) Urine Cocaine Screen (Negative) U Marijuana (THC) Screen (Negative) Ethyl Alcohol < 10 ( - 10) mg/dL SARS-CoV-2 (PCR) (Negative) 09/13/20 09/14/20 09/14/20 Range/Units 23:10 02:30 20:15 WBC 3.3 L (4.5-11.0) X10^3/uL RBC 3.60 L (4.5-5.9) X10^6/uL Hgb 11.4 L (13.5-17.5) g/dL Hct 34.4 L (41-53) % MCV 95.4 (80-100) fL MCH 31.6 (26-34) PG MCHC 33.1 (30-36) % RDW 14.3 (11.6-14.8) % Plt Count 189 (150-400) X10^3/uL Neut % (Auto) 91.4 H (50-75) % Lymph % (Auto) 6.7 L (25-40) % [place] % (Auto) 1.6 L (3-14) % Eos % (Auto) 0.0 L (2-4) % Baso % (Auto) 0.3 (0-2) % Neut # (Auto) 3000 (9084-2235) /uL Lymph # (Auto) 200 L (3257-2541) /uL [place] # (Auto) 100 (0-900) /uL Eos # (Auto) 0 (0-450) /uL Baso # (Auto) 0 (0-100) /uL Plt Morphology Comment RBC Morphology Normal morphology Sodium 137 (137-145) mmol/L Potassium 4.4 (3.4-5.1) mmol/L Chloride 105 (98-107) mmol/L Carbon Dioxide 17 L (22-32) mmol/L BUN 100 H (9-20) mg/dL Creatinine 11.9 H* (0.66-1.25) mg/dL Estimated GFR 4.4 L (>60) mL/min BUN/Creatinine Ratio 8.4 (6-22) Glucose 164 H (70-100) mg/dL Lactate (0.7-2.1) mmol/L Calcium 7.9 L (8.4-10.2) mg/dL Magnesium (1.6-2.3) mg/dL Total Bilirubin (0.2-1.3) mg/dL AST (17-59) IU/L ALT (<50) IU/L Alkaline Phosphatase (38-126) U/L Total Creatine Kinase (55-170) U/L CK-MB (CK-2) (<2.37) ng/mL CK-MB (CK-2) Rel Index (1.5-5.0) % Troponin I 0.146 H* (0.01-0.034) ng/mL NT-Pro-B Natriuret Pep (<125) pg/mL Total Protein (6.3-8.2) g/dL Albumin (3.5-5.0) g/dL Globulin (1.7-4.1) g/dL Albumin/Globulin Ratio (1.0-2.8) Urine RBC (0-5/HPF) Urine WBC (0-5/HPF) Urine Bacteria (None) Ur Culture Indicated? Ur Random Sodium 41 (30-90) mmol/L Urine Creatinine 107.6 mg/dL U Opiates 300ng/mL cut (Negative) Ur Oxycodone Screen (Negative) Urine Methadone Screen (Negative) Ur Barbiturates Screen (Negative) U Tricyclic Antidepress (Negative) Ur Phencyclidine Scrn (Negative) Ur Amphetamines Screen (Negative) U Methamphetamines Scrn (Negative) Ur MDMA Scrn (Ecstasy) (Negative) U Benzodiazepines Scrn (Negative) Urine Cocaine Screen (Negative) U Marijuana (THC) Screen (Negative) Ethyl Alcohol ( - 10) mg/dL SARS-CoV-2 (PCR) (Negative) 09/14/20 Range/Units 20:15 WBC (4.5-11.0) X10^3/uL RBC (4.5-5.9) X10^6/uL Hgb (13.5-17.5) g/dL Hct (41-53) % MCV (80-100) fL MCH (26-34) PG MCHC (30-36) % RDW (11.6-14.8) % Plt Count (150-400) X10^3/uL Neut % (Auto) (50-75) % Lymph % (Auto) (25-40) % [place] % (Auto) (3-14) % Eos % (Auto) (2-4) % Baso % (Auto) (0-2) % Neut # (Auto) (3434-9777) /uL Lymph # (Auto) (9297-8458) /uL [place] # (Auto) (0-900) /uL Eos # (Auto) (0-450) /uL Baso # (Auto) (0-100) /uL Plt Morphology Comment RBC Morphology Sodium 137 (137-145) mmol/L Potassium 4.2 (3.4-5.1) mmol/L Chloride 107 (98-107) mmol/L Carbon Dioxide 16 L (22-32) mmol/L BUN 103 H (9-20) mg/dL Creatinine 11.70 H* (0.66-1.25) mg/dL Estimated GFR 4.5 L (>60) mL/min BUN/Creatinine Ratio 8.8 (6-22) Glucose 149 H (70-100) mg/dL Lactate (0.7-2.1) mmol/L Calcium 8.0 L (8.4-10.2) mg/dL Magnesium (1.6-2.3) mg/dL Total Bilirubin (0.2-1.3) mg/dL AST (17-59) IU/L ALT (<50) IU/L Alkaline Phosphatase (38-126) U/L Total Creatine Kinase (55-170) U/L CK-MB (CK-2) (<2.37) ng/mL CK-MB (CK-2) Rel Index (1.5-5.0) % Troponin I (0.01-0.034) ng/mL NT-Pro-B Natriuret Pep (<125) pg/mL Total Protein (6.3-8.2) g/dL Albumin (3.5-5.0) g/dL Globulin (1.7-4.1) g/dL Albumin/Globulin Ratio (1.0-2.8) Urine RBC (0-5/HPF) Urine WBC (0-5/HPF) Urine Bacteria (None) Ur Culture Indicated? Ur Random Sodium (30-90) mmol/L Urine Creatinine mg/dL U Opiates 300ng/mL cut (Negative) Ur Oxycodone Screen (Negative) Urine Methadone Screen (Negative) Ur Barbiturates Screen (Negative) U Tricyclic Antidepress (Negative) Ur Phencyclidine Scrn (Negative) Ur Amphetamines Screen (Negative) U Methamphetamines Scrn (Negative) Ur MDMA Scrn (Ecstasy) (Negative) U Benzodiazepines Scrn (Negative) Urine Cocaine Screen (Negative) U Marijuana (THC) Screen (Negative) Ethyl Alcohol ( - 10) mg/dL SARS-CoV-2 (PCR) (Negative) Urine Dip Bedside Urine Glucose 250 mg/dl Bedside Urine Bilirubin - Negative Bedside Urine Ketone - Negative Urine Specific Freeman 1.025 Bedside Urine Occult Blood +++ Bedside Urine pH 6.0 Bedside Urine Protein +++ 300 Bedside Urine Urobilinogen - Negative Bedside Urine Nitrite - Negative Bedside Urine Leukocytes - Negative Esterase Imaging Data CT scan - abdomen/pelvis: Radiologist's Impression: Madhu Fontaine 60 M 1960 [facility] [place] [id number] Scan ReportSigned Patient: Madhu Fontaine BMR#: [id number]: 1960cct:[id number]/Sex: 60 / MDate of Service: 09/14/20Loc: EDAccession Number: [id number] Procedure: CT kidney ureter bladder (KUB) Ordering Provider: Nereyda Miller D.O. PROCEDURE: CT KIDNEY URETER BLADDER (KUB) INDICATIONS: renal failure TECHNIQUE: Axial sections were acquired from the lung bases to the pubic symphysis. Coronal and sagittal reformats were performed. For radiation dose reduction, the following was used: automated exposure control, adjustment of mA and/or kV according to patient size. COMPARISON:[facility], CT, CT ABDOMEN PELVIS WO CON, 02/10/2019, 8:15. FINDINGS: Lower thorax: Moderate bibasilar pleural effusions present with associated compressive atelectasis and/or infiltrate. Heart size is enlarged. No hiatal hernia. Liver: Normal in size and attenuation. No contour deformity present. Small calcified granuloma noted in the left hepatic lobe. Biliary system: No calcified cholelithiasis or pericholecystic inflammation. No intra or extrahepatic bile duct dilatation. Pancreas: Unremarkable without mass or inflammation evident. Spleen: Normal in size and density. Multiple calcified granulomas present. Adrenals: Normal morphology and density. Reproductive system: Unremarkable as visualized. Urinary system: Right renal atrophy. There is cortical thinning common the right kidney measures 6 cm in length. The left kidney also shows cortical thinning and scarring, the left kidney measures 6.7 cm in length. No renal calculi or hydronephrosis. Nguyen catheter in the bladder. Gastrointestinal system: The bowel appears unremarkable with no evidence of bowel obstruction or inflammation. The stomach appears unremarkable. Moderate fecal debris noted throughout the colon. Appendix: No findings to suggest acute appendicitis. Peritoneal spaces: No mesenteric or retroperitoneal adenopathy. No free air. Small amount of free fluid noted in both pericolic gutters and pelvis. Vasculature: Atherosclerotic vascular calcification noted. There is a 3.1 cm infrarenal abdominal aortic aneurysm. Musculoskeletal: Normal bone mineralization. No acute fractures. Abdominal wall intact without evidence of ventral or inguinal hernias. Degenerative changes noted in the lower lumbar spine and both hips. IMPRESSION: 1. Bilateral renal atrophy with scarring in the lower pole left kidney. No hydronephrosis or calculi. 2. Moderate bibasilar pleural effusions and small amount of free fluid in the abdomen and pelvis may be related to fluid balance. 3. Hepatorenal calcified granulomas 4. Incidental 3.1 cm infrarenal abdominal aortic aneurysm, new from the prior. Consider 2 year follow-up Dictated by: Don Real M.D. on 09/14/2020 at 9:19 Approved by: Don Real M.D. on 09/14/2020 at 9:33 CT scan - head: Radiologist's Impression: [address] [id number] Scan ReportSigned Patient: Madhu Fontaine BMR#: [id number]: 1960cct:[id number]/Sex: 60 / MDate of Service: 09/14/20Loc: EDAccession Number: [id number] Procedure: CT head/brain wo con Ordering Provider: Nereyda Miller D.O. PROCEDURE: CT HEAD/BRAIN WO CON INDICATIONS: altered mental status TECHNIQUE: Noncontrast 4.5 mm thick angled axial sections acquired from the foramen magnum to the vertex, with coronal and sagittal reformats. For radiation dose reduction, the following was used: automated exposure control, adjustment of mA and/or kV according to patient size. COMPARISON: None. FINDINGS: Image quality: Excellent. CSF spaces: Basal cisterns are patent. No extra-axial fluid collections. The ventricles are symmetric in size and shape. Brain: No intracranial bleeds or masses. There is cerebral volume loss for age, with resultant ventricular and sulcal prominence. There are periventricular and deep white matter chronic small vessel ischemic changes. There is intracranial internal carotid artery atherosclerosis. Skull and face: Calvarium and visualized facial bones appear intact, without suspicious lesions. Sinuses: Visualized sinuses and mastoids are clear. IMPRESSION: 1. No acute intracranial process. 2. Mild atrophy and chronic microvascular ischemic changes. Dictated by: Lucinda Trinh M.D. on 09/14/2020 at 15:07 Approved by: Lucinda Trinh M.D. on 09/14/2020 at 15:11 Chest x-ray: Radiologist's Impression: [address] [id number] ReportSigned Patient: Madhu Fontaine BMR#: [id number]: 1960cct:[id number]/Sex: 60 / MDate of Service: 09/14/20Loc: EDAccession Number: [id number] Procedure: XR chest 1V Ordering Provider: Milton Kwon D.O. PROCEDURE: XR CHEST 1V INDICATIONS: worsening shortness of breath TECHNIQUE: One view of the chest was acquired. COMPARISON: [facility], XR CHEST 2V, 09/13/2020, 22:44. FINDINGS: Surgical changes and devices: None. Lungs and pleura: Minimal effusions are present, slightly improved compared to prior exam. In addition, there has been minimal improvement of previously noted bilateral patchy opacities. Mediastinum: Mediastinal contours appear normal. Heart size is enlarged. Bones and chest wall: No suspicious bony lesions. Overlying soft tissues appear unremarkable. IMPRESSION: Improved although persistent appearance of patchy opacities as well as effusions. Dictated by: Lucinda Trinh M.D. on 09/14/2020 at 9:54 Approved by: Lucinda Trinh M.D. on 09/14/2020 at 9:56 MDM Narrative Medical decision making narrative: Patient signed out to myself by Dr. Kwon for acute renal failure with worsening mental status. Patients renal function was 12.4 today and is 2.5 in February 2019 <Neryeda Miller, - Last Filed: 09/15/20 08:53> Critical Care Time Attestation: The high probability of a clinically significant, sudden or life threatening deterioration of the [renal, cardiac] system(s) required my full and direct attention, intervention and personal management. The aggregate critical care time was [] minutes. This time is in addition to time spent performing reported procedures but includes the following: [x] Data Review and interpretation [x] Patient assessment and monitoring of vital signs [x] Documentation [x] Medication orders and management Discharge Plan [facility]: Acute renal failure, Pneumonia Prescriptions: No Action azithromycin 250 mg Tablet 250 mg PO DAILY RF: 0 amlodipine 10 mg tablet BID RF: 0 cefuroxime axetil 250 mg tablet 500 mg BID RF: 0 carvedilol 25 mg tablet BID RF: 0
--- NOTE | 2020-09-14 02:21 | PC.NURSE ---
NS rate increased to 999ml/hr per verbal order from Dr Kwon
[2020-09-14 02:58] LABS: HEMOLYSIS < 15 (0-50)
[2020-09-14 03:06] LABS: BUN Creatinine Ratio 8.4 (6-22); Blood Urea Nitrogen 100 mg/dL (9-20); Calcium 7.9 mg/dL (8.4-10.2); Carbon Dioxide 17 mmol/L (22-32); Chloride 105 mmol/L (98-107); Estimated Glomerular Filt Rate 4.4 mL/min (>60); Glucose 164 mg/dL (70-100); Potassium 4.4 mmol/L (3.4-5.1); Sodium 137 mmol/L (137-145)
[2020-09-14 03:11] LABS: Troponin I 0.146 ng/mL (0.01-0.034)
[2020-09-14] MEDS: HYDRALAZINE 20 MG/ML VIAL 10 MG IV ×2 (03:24→12:51)
[2020-09-14 03:28] LABS: Creatinine Urine Random 107.6 mg/dL; Sodium Urine Random 41 mmol/L (30-90)
[2020-09-14] MEDS: ALBUTEROL/IPRATROPIUM 3 ML AMPUL INH (03:58)
--- NOTE | 2020-09-14 04:14 | DI.RAD.S_ITS ---
PROCEDURE: XR CHEST 1V INDICATIONS: worsening shortness of breath TECHNIQUE: One view of the chest was acquired. COMPARISON: [facility], CR, XR CHEST 2V, 09/13/2020, 22:44. FINDINGS: Surgical changes and devices: None. Lungs and pleura: Minimal effusions are present, slightly improved compared to prior exam. In addition, there has been minimal improvement of previously noted bilateral patchy opacities. Mediastinum: Mediastinal contours appear normal. Heart size is enlarged. Bones and chest wall: No suspicious bony lesions. Overlying soft tissues appear unremarkable. IMPRESSION: Improved although persistent appearance of patchy opacities as well as effusions. Dictated by: Lucinda Trinh M.D. on 09/14/2020 at 9:54 Approved by: Lucinda Trinh M.D. on 09/14/2020 at 9:56
[2020-09-14] MEDS: methylPREDNISolone 125 MG/2 ML VIAL IV (04:27)
[2020-09-14] MEDS: LABETALOL 20 MG/4 ML SYRINGE IV (04:27)
[2020-09-14] MEDS: LORazepam 2 MG/ML INJ 1 MG IV (05:06)
[2020-09-14] MEDS: cefTRIAXone 1,000 MG in SODIUM CHLORIDE 0.9% 100 ML 200 ML IV (06:59)
[2020-09-14] MEDS: LORazepam 2 MG/ML INJ 0.5 MG IV ×2 (08:27→12:51)
[2020-09-14] MEDS: ASPIRIN 81 MG CHEW TAB 324 MG PO (08:27)
--- NOTE | 2020-09-14 09:30 | DI.CT.S_ITS ---
PROCEDURE: CT KIDNEY URETER BLADDER (KUB) INDICATIONS: renal failure TECHNIQUE: Axial sections were acquired from the lung bases to the pubic symphysis. Coronal and sagittal reformats were performed. For radiation dose reduction, the following was used: automated exposure control, adjustment of mA and/or kV according to patient size. COMPARISON:[facility], CT, CT ABDOMEN PELVIS WO CON, 02/10/2019, 8:15. FINDINGS: Lower thorax: Moderate bibasilar pleural effusions present with associated compressive atelectasis and/or infiltrate. Heart size is enlarged. No hiatal hernia. Liver: Normal in size and attenuation. No contour deformity present. Small calcified granuloma noted in the left hepatic lobe. Biliary system: No calcified cholelithiasis or pericholecystic inflammation. No intra or extrahepatic bile duct dilatation. Pancreas: Unremarkable without mass or inflammation evident. Spleen: Normal in size and density. Multiple calcified granulomas present. Adrenals: Normal morphology and density. Reproductive system: Unremarkable as visualized. Urinary system: Right renal atrophy. There is cortical thinning common the right kidney measures 6 cm in length. The left kidney also shows cortical thinning and scarring, the left kidney measures 6.7 cm in length. No renal calculi or hydronephrosis. Nguyen catheter in the bladder. Gastrointestinal system: The bowel appears unremarkable with no evidence of bowel obstruction or inflammation. The stomach appears unremarkable. Moderate fecal debris noted throughout the colon. Appendix: No findings to suggest acute appendicitis. Peritoneal spaces: No mesenteric or retroperitoneal adenopathy. No free air. Small amount of free fluid noted in both pericolic gutters and pelvis. Vasculature: Atherosclerotic vascular calcification noted. There is a 3.1 cm infrarenal abdominal aortic aneurysm. Musculoskeletal: Normal bone mineralization. No acute fractures. Abdominal wall intact without evidence of ventral or inguinal hernias. Degenerative changes noted in the lower lumbar spine and both hips. IMPRESSION: 1. Bilateral renal atrophy with scarring in the lower pole left kidney. No hydronephrosis or calculi. 2. Moderate bibasilar pleural effusions and small amount of free fluid in the abdomen and pelvis may be related to fluid balance. 3. Hepatorenal calcified granulomas 4. Incidental 3.1 cm infrarenal abdominal aortic aneurysm, new from the prior. Consider 2 year follow-up Dictated by: Don Real M.D. on 09/14/2020 at 9:19 Approved by: Don Real M.D. on 09/14/2020 at 9:33
[2020-09-14] MEDS: LABETALOL 100 MG TABLET 200 MG PO (11:57)
--- NOTE | 2020-09-14 13:18 | PC.NURSE ---
attempting to get medication information from patient. very difficult time. pt is extremely groggy.falling asleep as questions are asked. poor historian.
--- NOTE | 2020-09-14 13:59 | PC.NURSE ---
Offered a snack. Patient took a few bites then appeared to fall asleep. Snack at bedside for future desire.
[2020-09-14] MEDS: SODIUM CHLORIDE 0.9% 1,000 ML 150 ML IV (14:48)
--- NOTE | 2020-09-14 14:48 | DI.CT.S_ITS ---
PROCEDURE: CT HEAD/BRAIN WO CON INDICATIONS: altered mental status TECHNIQUE: Noncontrast 4.5 mm thick angled axial sections acquired from the foramen magnum to the vertex, with coronal and sagittal reformats. For radiation dose reduction, the following was used: automated exposure control, adjustment of mA and/or kV according to patient size. COMPARISON: None. FINDINGS: Image quality: Excellent. CSF spaces: Basal cisterns are patent. No extra-axial fluid collections. The ventricles are symmetric in size and shape. Brain: No intracranial bleeds or masses. There is cerebral volume loss for age, with resultant ventricular and sulcal prominence. There are periventricular and deep white matter chronic small vessel ischemic changes. There is intracranial internal carotid artery atherosclerosis. Skull and face: Calvarium and visualized facial bones appear intact, without suspicious lesions. Sinuses: Visualized sinuses and mastoids are clear. IMPRESSION: 1. No acute intracranial process. 2. Mild atrophy and chronic microvascular ischemic changes. Dictated by: Lucinda Trinh M.D. on 09/14/2020 at 15:07 Approved by: Lucinda Trinh M.D. on 09/14/2020 at 15:11
[2020-09-14 20:23] LABS: Basophils Absolute Auto 0 /uL (0-100); Basophils Percent Auto 0.3 % (0-2); Eosinophils Absolute Auto 0 /uL (0-450); Hematocrit 34.4 % (41-53); Hemoglobin 11.4 g/dL (13.5-17.5); Lymphocytes Absolute Auto 200 /uL (1100-4500); Lymphocytes Percent Auto 6.7 % (25-40); Mean Corpuscular HGB Conc 33.1 % (30-36); Mean Corpuscular Hemoglobin 31.6 PG (26-34); Mean Corpuscular Volume 95.4 fL (80-100); Monocytes Absolute Auto 100 /uL (0-900); Monocytes Percent Auto 1.6 % (3-14); Neutrophils Absolute Auto 3000 /uL (1500-7000); Neutrophils Percent Auto 91.4 % (50-75); Platelet Count 189 X10^3/uL (150-400); Red Cell Distribution Width 14.3 % (11.6-14.8); White Blood Cell Count 3.3 X10^3/uL (4.5-11.0)
[2020-09-14 20:25] LABS: Add Manual Diff / Slide Review SLIDE REVIEW
[2020-09-14 20:41] LABS: BUN Creatinine Ratio 8.8 (6-22); Blood Urea Nitrogen 103 mg/dL (9-20); Carbon Dioxide 16 mmol/L (22-32); Chloride 107 mmol/L (98-107); Estimated Glomerular Filt Rate 4.5 mL/min (>60); Glucose 149 mg/dL (70-100); HEMOLYSIS < 15 (0-50); Potassium 4.2 mmol/L (3.4-5.1); Sodium 137 mmol/L (137-145)
[2020-09-14 21:04] LABS: RBC Morphology Normal Morphology
[2020-09-14] MEDS: SODIUM CHLORIDE 0.9% 1,000 ML 100 ML IV (22:25)
[2020-09-15] VITALS: BP 178/107; PULSE 81; RESP 21; O2SAT 96
[2020-09-15 00:05] VITALS: BP 176/109; PULSE 96; RESP 26; O2SAT 97
[2020-09-15 00:10] VITALS: BP 169/82; PULSE 80; RESP 20; O2SAT 96
[2020-09-15 00:15] VITALS: BP 155/84; PULSE 81; RESP 23; O2SAT 96
== END 2020-09-15 00:20 | disposition short-term general hospital (02) ==
PROVIDERS: Emergency Medicine; Emergency Provider Emergency Medicine
DX: N17.9 Acute kidney failure, unspecified (principal); J18.9 Pneumonia, unspecified organism; I10 Essential (primary) hypertension; Z20.822 Contact with and (suspected) exposure to COVID-19; R06.02 Shortness of breath
CPT/HCPCS: 36415; 51702; 70450; 71045; 71046; 74176; 76770; 80048; 80053; 80305; 80320; 81003; 81015; 82550; 82553; 82570; 83605; 83735; 83880; 84300; 84484; 85025; 87040; 87635; 93005; 94640; 96361; 96365; 96375; 96376; 99285; 99291; C9803; J0360; J0696; J1940; J2060; J2930

== ENCOUNTER 2020-10-07 14:49 | Emergency (ER) | payer OTHER, MEDICAID, SELFPAY ==
[2020-10-07 15:01] VITALS: BP 145/74; PULSE 77; RESP 16; TEMP 37.3; O2SAT 94; BMI 20.1
[2020-10-07 16:32] LABS: COVID19 -Nasal RAPID Negative (Negative)
--- NOTE | 2020-10-07 16:45 | ED.FEVER ---
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 Patient had presented for his regularly scheduled dialysis appointment and was told he had a fever and was directed to the emergency department. Patient has no report of fever nor symptoms such as runny nose, sore throat or cough. He has no shaking chills, he denies chest pain, shortness of breath, weakness or abdominal pain. Patient denies any symptoms whatsoever, on arrival he has a temp of 99.2, he was then told by the dialysis center that he needs a COVID test. Related Data Home Medications Medication Instructions Recorded Confirmed amlodipine 10 mg tablet mg BID 09/14/20 azithromycin 250 mg tablet 250 mg PO DAILY 09/14/20 09/14/20 carvedilol 25 mg tablet mg BID 09/14/20 cefuroxime axetil 250 mg tablet 500 mg BID 09/14/20 09/14/20 Allergies Allergy/AdvReac Type Severity Reaction Status Date / Time No Known Drug Allergies Allergy Verified 10/07/20 15:01 Review of Systems Review of Systems Narrative: GENERAL: Denies chills, fatigue, malaise, fever, sweats. HEENT: Denies sinus pain, ear pain, sore throat, difficulty swallowing, dizziness. RESPIRATORY: Denies dyspnea, cough, wheezing, hemoptysis, sputum. CARDIOVASCULAR: Denies chest pain, palpitations, orthopnea, edema, GASTROINTESTINAL: Denies nausea, vomiting, abdominal pain, diarrhea, constipation, melena. : Denies dysuria, frequency, incontinence, hematuria, urinary retention. MUSCULOSKELETAL: denies weakness, joint pain, or bony pain SKIN: Denies rash, skin lesions, or other NEUROLOGIC: Denies weakness, headache, numbness, change in speech, confusion, seizures, incoordination. PSYCHIATRIC: No concerning psychosocial issues. 12 point review of systems is negative except for those stated above Patient History Medical History COPD (chronic obstructive pulmonary disease) CVA (cerebral vascular accident) Social History household members: family Smoking Status: Current every day smoker Smoking Status: Current every day smoker alcohol intake frequency: holidays/special occasions only Substance Use Type: marijuana and methamphetamine Exam Narrative Exam Narrative: GEN: AOx3 and in mild distress EYES: Pupils are equal, round, and reactive to light and accommodation. Extraoccular muscles are intact bilaterally. There is no subconjunctival hemorrhage or exudate. CHEST: Lungs are clear to auscultation bilaterally and free of wheezes, rales, or rhonchi. Heart rate is regular rhythm, there are no murmurs, clicks, rubs, or gallops. There is no chest wall tenderness. ABD: Abdomen is soft and nontender. There is no guarding or rebound. Bowel sounds are normal in all 4 quadrants. There is no mass or organomegaly. EXT: Full painless ROM of all extremities with no loss of sensation or strength. SKIN: Warm, pink, and dry. No erythema or rash Initial Vital Signs Initial Vital Signs: Vital Signs Temperature 99.2 F 10/07/20 15:01 Pulse Rate 77 10/07/20 15:01 Respiratory Rate 16 10/07/20 15:01 Blood Pressure 145/74 H 10/07/20 15:01 Pulse Oximetry 94 10/07/20 15:01 Course Orders Ordered: ED Orders 10/07/20 15:56 COVID19 -Nasal swab/Pre-Proc Stat Vital Signs Vital signs: Vital Signs - 8 hr 10/07/20 15:01 Temperature 99.2 F Pulse Rate 77 Respiratory Rate 16 Blood Pressure 145/74 H Pulse Oximetry 94 MDM - Fever Lab Data Labs: Lab Results 10/07/20 Range/Units 15:56 SARS-CoV-2 (PCR) Negative (Negative) MDM Narrative Medical decision making narrative: Patient has no fever and denies any symptoms. He shows no signs of fluid overload. He denies any complaints. He intends to call the dialysis center in the morning when they open up at 5:30 a.m. to receive instruction about getting dialysis. He has been given return precautions and questions answered to his apparent satisfaction Discharge Plan Departure Patient Disposition: Home Clinical Impression: Feared complaint without diagnosis Instructions: COVID-19: Protecting Yourself When You're at High Risk, COVID-19: Testing and Tracing Activity Restrictions/Additional Instructions: *You have been diagnosed with [negative COVID test] *What to do: *Please continue to take your regular medications as directed. *Please follow up with your primary care provider in 2-3 days, call for an appointment. Let them know you were seen in the Emergency Department and that we ask that you be seen in follow up. We will electronically transmit a record of today's note if your PCP is in our system *If you do not have a primary care provider please contact the [facility] Resource line at [phone]. They will ask some questions about your medical history and help get you set up with a doctor in the community. *Return to Emergency Department if you should have any new, worsening or concerning symptoms, such as [fever greater than 101 F, shaking chills, worsening pain, persistent vomiting or other bothersome symptoms] Prescriptions: No Action azithromycin 250 mg Tablet 250 mg PO DAILY RF: 0 amlodipine 10 mg tablet BID RF: 0 cefuroxime axetil 250 mg tablet 500 mg BID RF: 0 carvedilol 25 mg tablet BID RF: 0
== END 2020-10-07 16:50 | disposition home or self-care (01) ==
PROVIDERS: Emergency Provider Emergency Medicine
DX: R50.9 Fever, unspecified (principal); Z20.822 Contact with and (suspected) exposure to COVID-19
CPT/HCPCS: 87635; 99281; 99282; C9803

== ENCOUNTER 2021-02-01 01:28 | Emergency (ER) | payer OTHER, MEDICAID, SELFPAY ==
[2021-02-01] VITALS (85 sets, daily range): BP systolic 121–220; BP diastolic 81–146; PULSE 62–98; RESP 21–55; TEMP 37.1; O2SAT 88–98; BMI 19.5
--- NOTE | 2021-02-01 01:36 | ED.GENADULT ---
HPI - General Adult <Jyotsna Watson MD - Last Filed: 02/03/21 07:43> General Chief complaint: Shortness of Breath/Dyspnea Stated complaint: sob x2 days Time Seen by Provider: 02/01/21 01:36 History of Present Illness HPI narrative: 60-year-old gentleman who is a chronic dialysis patient, hypertension, carotid artery stenosis with history of stroke, cardiomyopathy, and COPDwho presents with 2 days of exertional dyspnea to the point he is having dyspnea at rest. He states that he ?has his inhalers at home? clearly has not been using them. He is not COVID vaccinated. denies chest pain or palpitations. He denies any recent vomiting, black or bloody stools. He notes that he does still make urine and his urine has not changed. He is not complaining of any headaches nausea, vomiting, abdominal pain or diarrhea. His usual dialysis schedule is Sunday. He has not missed any dialysis and is scheduled for later today. He usually dialyzes in [place]. Related Data Home Medications Medication Instructions Recorded Confirmed amlodipine 10 mg tablet mg BID 09/14/20 azithromycin 250 mg tablet 250 mg PO DAILY 09/14/20 09/14/20 carvedilol 25 mg tablet mg BID 09/14/20 cefuroxime axetil 250 mg tablet 500 mg BID 09/14/20 09/14/20 Allergies Allergy/AdvReac Type Severity Reaction Status Date / Time No Known Drug Allergies Allergy Verified 10/07/20 15:01 Review of Systems <Jyotsna Watson MD - Last Filed: 02/03/21 07:43> Review of Systems Narrative: Remainder of complete review of systems is otherwise unremarkable except for that included in the HPI. Patient History <Jyotsna Watson MD - Last Filed: 02/03/21 07:43> Medical History (Updated 02/01/21 @ 06:11 by Jyotsna Watson MD) Cardiomyopathy COPD (chronic obstructive pulmonary disease) CVA (cerebral vascular accident) Dialysis patient Hypertension Social History household members: family Smoking Status: Current every day smoker Smoking Status: Current every day smoker alcohol intake frequency: holidays/special occasions only Substance Use Type: marijuana and methamphetamine Exam <Jyotsna Watson MD - Last Filed: 02/03/21 07:43> Narrative Exam Narrative: General: Frail, chronically ill-appearing gentleman in no acute distress. Able to participate completely with history. Neck: Mild JVD, supple Respiratory: Lungs with scattered minor wheeze in all lung alvarez and basilar crackles. Full and symmetrical air movement Cardiac: Regular rate and rhythm no murmurs no bruits Abdomen: Soft, nontender, good bowel tones, no flank pain : Guaiac negative rectal exam Skin: Significant psoriasis with plaques through his scalp that are quite dense moderate through the chest and scattered through the rest of his body. Neurologic: Grossly neurologically intact with no obvious asymmetries or abnormalities Extremities: No trauma, no lower extremity edema Psych: Mild tourett type verbal outbursts, poor overall inside into the events and medical disease Initial Vital Signs Initial Vital Signs: Vital Signs Temperature 98.8 F 02/01/21 01:38 Pulse Rate 98 H 02/01/21 01:38 Respiratory Rate 26 H 02/01/21 01:38 Blood Pressure 220/115 H 02/01/21 01:38 Pulse Oximetry 96 02/01/21 01:38 <Roman Dacosta DO - Last Filed: 02/01/21 18:33> Initial Vital Signs Initial Vital Signs: Vital Signs Temperature 98.8 F 02/01/21 01:38 Pulse Rate 98 H 02/01/21 01:38 Respiratory Rate 26 H 02/01/21 01:38 Blood Pressure 220/115 H 02/01/21 01:38 Pulse Oximetry 96 02/01/21 01:38 Course <Jyotsna Watson MD - Last Filed: 02/03/21 07:43> Orders Ordered: Discontinued Medications Dexamethasone (Dexamethasone 10 Mg/Ml Vial) 6 mg IV NOW ONE Stop: 02/01/21 04:26 Last Admin: 02/01/21 05:24 Dose: 6 mg Documented by: VALERIE Heparin Sodium (Porcine) (Heparin 5,000 Unit/Ml Vial) 4,000 unit IV NOW ONE Stop: 02/01/21 03:16 Last Admin: 02/01/21 03:12 Dose: 4,000 unit Documented by: VALERIE Heparin Sodium (Porcine) (Heparin 5,000 Unit/Ml Vial) 4,000 unit IV NOW ONE Stop: 02/01/21 03:16 Heparin Sodium (Porcine) (Heparin 5,000 Unit/Ml Vial) 3,000 unit IV NOW ONE Stop: 02/01/21 10:33 Last Admin: 02/01/21 10:33 Dose: 3,000 unit Documented by: ROBERT Heparin Sodium (Porcine) (Heparin 5,000 Unit/Ml Vial) 3,000 unit IV NOW ONE Stop: 02/01/21 17:26 Last Admin: 02/01/21 17:27 Dose: 3,000 unit Documented by: ROBERT Heparin Sodium/Dextrose (Heparin Drip) 25,000 unit in 500 mls @ 20 mls/hr IV CONT JUAN; Protocol Last Admin: 02/01/21 15:30 Dose: Not Given Documented by: ROBERT Heparin Sodium/Dextrose (Heparin Drip) 25,000 unit in 500 mls @ 13.6 mls/hr IV CONT JUAN; Protocol Last Titration: 02/01/21 19:21 Dose: 0 mls/hr, 0 mls/hr Documented by: Titration: 02/01/21 17:24 Dose: 17.6 mls/hr, 17.6 mls/hr Documented by: Titration: 02/01/21 10:31 Dose: 15.6 mls/hr, 15.6 mls/hr Documented by: Admin: 02/01/21 03:14 Dose: 13.6 mls/hr, 13.6 mls/hr Documented by: VALERIE Labetalol HCl (Labetalol 20 Mg/4 Ml Syringe) 20 mg IV NOW ONE Stop: 02/01/21 02:53 Last Admin: 02/01/21 09:19 Dose: Not Given Documented by: ROBERT Metoprolol Tartrate (Metoprolol Tartrate 5 Mg/5 Ml Inj) 5 mg IV Q5M JUAN Stop: 02/01/21 03:11 Last Admin: 02/01/21 04:06 Dose: 5 mg Documented by: Admin: 02/01/21 03:47 Dose: 5 mg Documented by: Admin: 02/01/21 03:28 Dose: 5 mg Documented by: VALERIE Nitroglycerin (Nitroglycerin Oint 1 Inch/Gm Oint...G.) 1 inch TOP NOW ONE Stop: 02/01/21 02:57 Last Admin: 02/01/21 03:12 Dose: 1 inch Documented by: HGMALIN Vital Signs Vital signs: Vital Signs - 8 hr 02/01/21 14:10 02/01/21 14:15 02/01/21 14:20 Pulse Rate 71 71 Respiratory Rate 33 H 35 H Blood Pressure 181/115 H 195/118 H 191/112 H 02/01/21 14:25 02/01/21 14:30 02/01/21 14:35 Pulse Rate 71 69 71 Respiratory Rate 32 H 30 H 32 H Blood Pressure 183/114 H 189/115 H 197/115 H 02/01/21 14:41 02/01/21 14:45 02/01/21 14:50 Pulse Rate 70 71 71 Respiratory Rate 29 H 28 H 29 H Blood Pressure 187/113 H 184/115 H 187/114 H 02/01/21 14:55 02/01/21 15:00 02/01/21 15:05 Pulse Rate 71 71 70 Respiratory Rate 29 H 33 H 29 H Blood Pressure 185/111 H 183/117 H 175/117 H 02/01/21 15:10 02/01/21 15:15 02/01/21 15:20 Pulse Rate 70 74 74 Respiratory Rate 30 H 34 H 34 H Blood Pressure 190/110 H 196/111 H 190/114 H 02/01/21 15:25 02/01/21 15:30 02/01/21 15:35 Pulse Rate 72 72 73 Respiratory Rate 28 H 31 H 32 H Blood Pressure 188/111 H 180/99 H 189/110 H 02/01/21 15:40 02/01/21 15:45 02/01/21 15:51 Pulse Rate 77 74 74 Respiratory Rate 39 H 33 H 41 H Blood Pressure 170/94 H 183/110 H 193/103 H 02/01/21 15:56 02/01/21 16:00 02/01/21 16:06 Pulse Rate 72 71 71 Respiratory Rate 29 H 28 H 33 H Blood Pressure 187/106 H 190/103 H 02/01/21 16:16 02/01/21 16:20 02/01/21 16:30 Pulse Rate 71 72 73 Respiratory Rate 33 H 29 H 31 H Blood Pressure 187/106 H 186/108 H 02/01/21 17:00 Pulse Rate 72 Respiratory Rate 33 H Blood Pressure 121/92 H <Roman Dacosta DO - Last Filed: 02/01/21 18:33> Orders Ordered: Discontinued Medications Dexamethasone (Dexamethasone 10 Mg/Ml Vial) 6 mg IV NOW ONE Stop: 02/01/21 04:26 Last Admin: 02/01/21 05:24 Dose: 6 mg Documented by: VALERIE Heparin Sodium (Porcine) (Heparin 5,000 Unit/Ml Vial) 4,000 unit IV NOW ONE Stop: 02/01/21 03:16 Last Admin: 02/01/21 03:12 Dose: 4,000 unit Documented by: VALERIE Heparin Sodium (Porcine) (Heparin 5,000 Unit/Ml Vial) 4,000 unit IV NOW ONE Stop: 02/01/21 03:16 Heparin Sodium (Porcine) (Heparin 5,000 Unit/Ml Vial) 3,000 unit IV NOW ONE Stop: 02/01/21 10:33 Last Admin: 02/01/21 10:33 Dose: 3,000 unit Documented by: ROBERT Heparin Sodium (Porcine) (Heparin 5,000 Unit/Ml Vial) 3,000 unit IV NOW ONE Stop: 02/01/21 17:26 Last Admin: 02/01/21 17:27 Dose: 3,000 unit Documented by: ROBERT Heparin Sodium/Dextrose (Heparin Drip) 25,000 unit in 500 mls @ 20 mls/hr IV CONT JUAN; Protocol Last Admin: 02/01/21 15:30 Dose: Not Given Documented by: ROBERT Heparin Sodium/Dextrose (Heparin Drip) 25,000 unit in 500 mls @ 13.6 mls/hr IV CONT JUAN; Protocol Last Titration: 02/01/21 19:21 Dose: 0 mls/hr, 0 mls/hr Documented by: Titration: 02/01/21 17:24 Dose: 17.6 mls/hr, 17.6 mls/hr Documented by: Titration: 02/01/21 10:31 Dose: 15.6 mls/hr, 15.6 mls/hr Documented by: Admin: 02/01/21 03:14 Dose: 13.6 mls/hr, 13.6 mls/hr Documented by: VALERIE Labetalol HCl (Labetalol 20 Mg/4 Ml Syringe) 20 mg IV NOW ONE Stop: 02/01/21 02:53 Last Admin: 02/01/21 09:19 Dose: Not Given Documented by: ROBERT Metoprolol Tartrate (Metoprolol Tartrate 5 Mg/5 Ml Inj) 5 mg IV Q5M [facility] Stop: 02/01/21 03:11 Last Admin: 02/01/21 04:06 Dose: 5 mg Documented by: Admin: 02/01/21 03:47 Dose: 5 mg Documented by: Admin: 02/01/21 03:28 Dose: 5 mg Documented by: VALERIE Nitroglycerin (Nitroglycerin Oint 1 Inch/Gm Oint...G.) 1 inch TOP NOW ONE Stop: 02/01/21 02:57 Last Admin: 02/01/21 03:12 Dose: 1 inch Documented by: VALERIE Vital Signs Vital signs: Vital Signs - 8 hr 02/01/21 14:10 02/01/21 14:15 02/01/21 14:20 Pulse Rate 71 71 Respiratory Rate 33 H 35 H Blood Pressure 181/115 H 195/118 H 191/112 H 02/01/21 14:25 02/01/21 14:30 02/01/21 14:35 Pulse Rate 71 69 71 Respiratory Rate 32 H 30 H 32 H Blood Pressure 183/114 H 189/115 H 197/115 H 02/01/21 14:41 02/01/21 14:45 02/01/21 14:50 Pulse Rate 70 71 71 Respiratory Rate 29 H 28 H 29 H Blood Pressure 187/113 H 184/115 H 187/114 H 02/01/21 14:55 02/01/21 15:00 02/01/21 15:05 Pulse Rate 71 71 70 Respiratory Rate 29 H 33 H 29 H Blood Pressure 185/111 H 183/117 H 175/117 H 02/01/21 15:10 02/01/21 15:15 02/01/21 15:20 Pulse Rate 70 74 74 Respiratory Rate 30 H 34 H 34 H Blood Pressure 190/110 H 196/111 H 190/114 H 02/01/21 15:25 02/01/21 15:30 02/01/21 15:35 Pulse Rate 72 72 73 Respiratory Rate 28 H 31 H 32 H Blood Pressure 188/111 H 180/99 H 189/110 H 02/01/21 15:40 02/01/21 15:45 02/01/21 15:51 Pulse Rate 77 74 74 Respiratory Rate 39 H 33 H 41 H Blood Pressure 170/94 H 183/110 H 193/103 H 02/01/21 15:56 02/01/21 16:00 02/01/21 16:06 Pulse Rate 72 71 71 Respiratory Rate 29 H 28 H 33 H Blood Pressure 187/106 H 190/103 H 02/01/21 16:16 02/01/21 16:20 02/01/21 16:30 Pulse Rate 71 72 73 Respiratory Rate 33 H 29 H 31 H Blood Pressure 187/106 H 186/108 H 02/01/21 17:00 Pulse Rate 72 Respiratory Rate 33 H Blood Pressure 121/92 H Medical Decision Making <Jyotsna Watson MD - Last Filed: 02/03/21 07:43> Lab Data Result diagrams: 02/01/21 02:15 02/01/21 02:15 Labs: Lab Results 02/01/21 02/01/21 02/01/21 Range/Units 02:15 02:15 02:15 WBC 7.2 (4.5-11.0) X10^3/uL RBC 3.00 L (4.5-5.9) X10^6/uL Hgb 9.7 L (13.5-17.5) g/dL Hct 29.3 L (41-53) % MCV 97.7 (80-100) fL MCH 32.3 (26-34) PG MCHC 33.0 (30-36) % RDW 16.8 H (11.6-14.8) % Plt Count 229 (150-400) X10^3/uL Neut % (Auto) 82.7 H (50-75) % Lymph % (Auto) 8.2 L (25-40) % [place] % (Auto) 6.6 (3-14) % Eos % (Auto) 1.4 L (2-4) % Baso % (Auto) 1.1 (0-2) % Neut # (Auto) 6000 (8481-7349) /uL Lymph # (Auto) 600 L (2555-2857) /uL [place] # (Auto) 500 (0-900) /uL Eos # (Auto) 100 (0-450) /uL Baso # (Auto) 100 (0-100) /uL APTT (26.4-36.2) SECONDS D-Dimer 772 H (<230) ng/mL Sodium 139 (137-145) mmol/L Potassium 4.7 (3.4-5.1) mmol/L Chloride 103 (98-107) mmol/L Carbon Dioxide 22 (22-32) mmol/L BUN 55 H (9-20) mg/dL Creatinine 8.04 H* (0.66-1.25) mg/dL Estimated GFR 6.9 L (>60) mL/min BUN/Creatinine Ratio 6.8 (6-22) Glucose 124 H (70-100) mg/dL Calcium 10.0 (8.4-10.2) mg/dL Magnesium (1.6-2.3) mg/dL Total Bilirubin 0.6 (0.2-1.3) mg/dL AST 32 (17-59) IU/L ALT 19 (<50) IU/L Alkaline Phosphatase 50 (38-126) U/L Troponin I (0.01-0.034) ng/mL NT-Pro-B Natriuret Pep (<125) pg/mL Total Protein 6.9 (6.3-8.2) g/dL Albumin 4.0 (3.5-5.0) g/dL Globulin 2.9 (1.7-4.1) g/dL Albumin/Globulin Ratio 1.4 (1.0-2.8) Lipase (23-300) U/L Chlamy pneumoniae PCR (Not Detect) Adenovirus (PCR) (Not Detect) B. pertussis DNA (PCR) (Not Detecte) B.parapertussis DNA PCR (Not Detecte) Coronavirus OC43 (PCR) (Not Detect) Coronavirus HKU1 (PCR) (Not Detect) Coronavirus 229E (PCR) (Not Detect) SARS-CoV-2 (PCR) (Not Detecte) Coronavirus NL63 (PCR) (Not Detect) Human Metapneumovir PCR (Not Detect) Influenza Type A (PCR) (Not Detect) Influenza Type B (PCR) (Not Detect) M. pneumoniae (PCR) (Not Detect) Parainfluenza 1 (PCR) (Not Detect) Parainfluenza 2 (PCR) (Not Detect) Parainfluenza 3 (PCR) (Not Detect) Parainfluenza 4 (PCR) (Not Detect) RSV (PCR) (Not Detect) Entero/Rhino (PCR) (Not Detect) 02/01/21 02/01/21 02/01/21 Range/Units 02:15 02:15 02:15 WBC (4.5-11.0) X10^3/uL RBC (4.5-5.9) X10^6/uL Hgb (13.5-17.5) g/dL Hct (41-53) % MCV (80-100) fL MCH (26-34) PG MCHC (30-36) % RDW (11.6-14.8) % Plt Count (150-400) X10^3/uL Neut % (Auto) (50-75) % Lymph % (Auto) (25-40) % [place] % (Auto) (3-14) % Eos % (Auto) (2-4) % Baso % (Auto) (0-2) % Neut # (Auto) (3950-3496) /uL Lymph # (Auto) (7247-7290) /uL [place] # (Auto) (0-900) /uL Eos # (Auto) (0-450) /uL Baso # (Auto) (0-100) /uL APTT 31 (26.4-36.2) SECONDS D-Dimer (<230) ng/mL Sodium (137-145) mmol/L Potassium (3.4-5.1) mmol/L Chloride (98-107) mmol/L Carbon Dioxide (22-32) mmol/L BUN (9-20) mg/dL Creatinine (0.66-1.25) mg/dL Estimated GFR (>60) mL/min BUN/Creatinine Ratio (6-22) Glucose (70-100) mg/dL Calcium (8.4-10.2) mg/dL Magnesium 2.5 H (1.6-2.3) mg/dL Total Bilirubin (0.2-1.3) mg/dL AST (17-59) IU/L ALT (<50) IU/L Alkaline Phosphatase (38-126) U/L Troponin I 0.220 H* (0.01-0.034) ng/mL NT-Pro-B Natriuret Pep 488197 H (<125) pg/mL Total Protein (6.3-8.2) g/dL Albumin (3.5-5.0) g/dL Globulin (1.7-4.1) g/dL Albumin/Globulin Ratio (1.0-2.8) Lipase 135 (23-300) U/L Chlamy pneumoniae PCR Not detected (Not Detect) Adenovirus (PCR) Not detected (Not Detect) B. pertussis DNA (PCR) Not detected (Not Detecte) B.parapertussis DNA PCR Not detected (Not Detecte) Coronavirus OC43 (PCR) Not detected (Not Detect) Coronavirus HKU1 (PCR) Not detected (Not Detect) Coronavirus 229E (PCR) Not detected (Not Detect) SARS-CoV-2 (PCR) Detected H (Not Detecte) Coronavirus NL63 (PCR) Not detected (Not Detect) Human Metapneumovir PCR Not detected (Not Detect) Influenza Type A (PCR) Not detected (Not Detect) Influenza Type B (PCR) Not detected (Not Detect) M. pneumoniae (PCR) Not detected (Not Detect) Parainfluenza 1 (PCR) Not detected (Not Detect) Parainfluenza 2 (PCR) Not detected (Not Detect) Parainfluenza 3 (PCR) Not detected (Not Detect) Parainfluenza 4 (PCR) Not detected (Not Detect) RSV (PCR) Not detected (Not Detect) Entero/Rhino (PCR) Not detected (Not Detect) 02/01/21 02/01/21 02/01/21 Range/Units 07:39 09:36 15:40 WBC (4.5-11.0) X10^3/uL RBC (4.5-5.9) X10^6/uL Hgb (13.5-17.5) g/dL Hct (41-53) % MCV (80-100) fL MCH (26-34) PG MCHC (30-36) % RDW (11.6-14.8) % Plt Count (150-400) X10^3/uL Neut % (Auto) (50-75) % Lymph % (Auto) (25-40) % [place] % (Auto) (3-14) % Eos % (Auto) (2-4) % Baso % (Auto) (0-2) % Neut # (Auto) (2676-0519) /uL Lymph # (Auto) (8620-7857) /uL [place] # (Auto) (0-900) /uL Eos # (Auto) (0-450) /uL Baso # (Auto) (0-100) /uL APTT 35 33 (26.4-36.2) SECONDS D-Dimer (<230) ng/mL Sodium (137-145) mmol/L Potassium (3.4-5.1) mmol/L Chloride (98-107) mmol/L Carbon Dioxide (22-32) mmol/L BUN (9-20) mg/dL Creatinine (0.66-1.25) mg/dL Estimated GFR (>60) mL/min BUN/Creatinine Ratio (6-22) Glucose (70-100) mg/dL Calcium (8.4-10.2) mg/dL Magnesium (1.6-2.3) mg/dL Total Bilirubin (0.2-1.3) mg/dL AST (17-59) IU/L ALT (<50) IU/L Alkaline Phosphatase (38-126) U/L Troponin I 0.237 H* (0.01-0.034) ng/mL NT-Pro-B Natriuret Pep (<125) pg/mL Total Protein (6.3-8.2) g/dL Albumin (3.5-5.0) g/dL Globulin (1.7-4.1) g/dL Albumin/Globulin Ratio (1.0-2.8) Lipase (23-300) U/L Chlamy pneumoniae PCR (Not Detect) Adenovirus (PCR) (Not Detect) B. pertussis DNA (PCR) (Not Detecte) B.parapertussis DNA PCR (Not Detecte) Coronavirus OC43 (PCR) (Not Detect) Coronavirus HKU1 (PCR) (Not Detect) Coronavirus 229E (PCR) (Not Detect) SARS-CoV-2 (PCR) (Not Detecte) Coronavirus NL63 (PCR) (Not Detect) Human Metapneumovir PCR (Not Detect) Influenza Type A (PCR) (Not Detect) Influenza Type B (PCR) (Not Detect) M. pneumoniae (PCR) (Not Detect) Parainfluenza 1 (PCR) (Not Detect) Parainfluenza 2 (PCR) (Not Detect) Parainfluenza 3 (PCR) (Not Detect) Parainfluenza 4 (PCR) (Not Detect) RSV (PCR) (Not Detect) Entero/Rhino (PCR) (Not Detect) 02/01/21 Range/Units 15:40 WBC (4.5-11.0) X10^3/uL RBC (4.5-5.9) X10^6/uL Hgb (13.5-17.5) g/dL Hct (41-53) % MCV (80-100) fL MCH (26-34) PG MCHC (30-36) % RDW (11.6-14.8) % Plt Count (150-400) X10^3/uL Neut % (Auto) (50-75) % Lymph % (Auto) (25-40) % [place] % (Auto) (3-14) % Eos % (Auto) (2-4) % Baso % (Auto) (0-2) % Neut # (Auto) (0148-2546) /uL Lymph # (Auto) (9775-8117) /uL [place] # (Auto) (0-900) /uL Eos # (Auto) (0-450) /uL Baso # (Auto) (0-100) /uL APTT (26.4-36.2) SECONDS D-Dimer (<230) ng/mL Sodium (137-145) mmol/L Potassium (3.4-5.1) mmol/L Chloride (98-107) mmol/L Carbon Dioxide (22-32) mmol/L BUN (9-20) mg/dL Creatinine (0.66-1.25) mg/dL Estimated GFR (>60) mL/min BUN/Creatinine Ratio (6-22) Glucose (70-100) mg/dL Calcium (8.4-10.2) mg/dL Magnesium (1.6-2.3) mg/dL Total Bilirubin (0.2-1.3) mg/dL AST (17-59) IU/L ALT (<50) IU/L Alkaline Phosphatase (38-126) U/L Troponin I 0.188 H* (0.01-0.034) ng/mL NT-Pro-B Natriuret Pep (<125) pg/mL Total Protein (6.3-8.2) g/dL Albumin (3.5-5.0) g/dL Globulin (1.7-4.1) g/dL Albumin/Globulin Ratio (1.0-2.8) Lipase (23-300) U/L Chlamy pneumoniae PCR (Not Detect) Adenovirus (PCR) (Not Detect) B. pertussis DNA (PCR) (Not Detecte) B.parapertussis DNA PCR (Not Detecte) Coronavirus OC43 (PCR) (Not Detect) Coronavirus HKU1 (PCR) (Not Detect) Coronavirus 229E (PCR) (Not Detect) SARS-CoV-2 (PCR) (Not Detecte) Coronavirus NL63 (PCR) (Not Detect) Human Metapneumovir PCR (Not Detect) Influenza Type A (PCR) (Not Detect) Influenza Type B (PCR) (Not Detect) M. pneumoniae (PCR) (Not Detect) Parainfluenza 1 (PCR) (Not Detect) Parainfluenza 2 (PCR) (Not Detect) Parainfluenza 3 (PCR) (Not Detect) Parainfluenza 4 (PCR) (Not Detect) RSV (PCR) (Not Detect) Entero/Rhino (PCR) (Not Detect) Imaging Data Chest x-ray: Radiologist's Impression: Grossly stable interstitial opacities greater on the right. Mild edema or interstitial infiltrate could be considered. Froy Petty MD CT scan - chest: Radiologist's Impression: No pulmonary emboli. Small bilateral pleural effusions. ECG Data Interpretation: Sinus rhythm at a rate of [address] T wave changes Normal intervals, normal axis MDM Narrative Medical decision making narrative: 60-year-old gentleman on chronic dialysis for reasons he does not understand and takes a ?red pill? for his blood pressure does not use any inhalers at home, is not COVID vaccinated and is due for dialysis regularly scheduled later today presents with 2 days of exertional dyspnea now with dyspnea at rest. He is moderately anemic at 9.7 and 29.3 with recent comparison available from September at 11.4 and 34.4. No reports of active or obvious blood loss. Guaiac negative. This may be dilutional l as he is due for his dialysis later today. BNP is dramatically elevated without clinical evidence of congestive heart failure. Likely again related to his chronic renal dysfunction. Troponin is elevated at 0.220 D-dimer is slightly elevated even beyond age corrected. Will anticipate CT angiogram. At this time, he is started on heparin with a heparin bolus. Nitro paste is placed. His blood pressure had been significantly elevated in the 220/120 range when he initially came in however prior to administration of any IV beta-blockers came down to 150/90. With that much lability, will continue to watch before any additional treatment beyond the topical nitrates. Respiratory PCR is currently pending, apparently his roommate, who also is not vaccinated, was recently told he had a positive COVID test and the roommate chose to not believe this and walked out of the facility where he was being evaluated. Patient will need hospital admission with anticipation of cardiac consultation, Nephrology consultation with dialysis and he may be COVID positive. At this point there are no beds in [facility]. Have contacted the [facility] to see if they had other suggestions or ideas. There is suggestion was to contact facilities after morning discharges. Most likely opportunity at this point may well be [facility]. [facility] apparently had multiple patients boarding in their emergency department as does [facility]. Will try all of these again tomorrow in the meantime will continue current care plan in the emergency department with this gentleman. 4:20 + Covid. He will be given 6 mg of IV Decadron. With his renal failure he is not appropriate for remdesivir. With an elevated D-dimer, a CTA is ordered. 5:15 currently on the waiting list for transfer at [facility] in [facility], [facility]. All of been notified of his positive COVID status. 6:10 am returns to check on him. She notes that he is continuing to actively use methamphetamine and quite a bit of marijuana. He has told her he does not want to stay in the hospital and wants to go home against medical advice. Told her that is perfectly acceptable with the caveats that he likely will from a combination of his renal failure, methamphetamine use, cardiomyopathy, NSTEMI and COVID. His states that they had a similar conversation in September before he started dialysis. She states that he was happy to start dialysis because it allows him to use more drugs for a longer period of time. She is currently chatting with him now. If you choose to leave will allow him to do so signing Against Medical Advice forms. If he chooses to stay his will be clearly notified of our COVID visitor policy -no live visitors with COVID positive patients. 6:45 Pt has chosen to stay <Roman DacostaDO - Last Filed: 02/01/21 18:33> Lab Data Labs: Lab Results 02/01/21 02/01/21 02/01/21 Range/Units 02:15 02:15 02:15 WBC 7.2 (4.5-11.0) X10^3/uL RBC 3.00 L (4.5-5.9) X10^6/uL Hgb 9.7 L (13.5-17.5) g/dL Hct 29.3 L (41-53) % MCV 97.7 (80-100) fL MCH 32.3 (26-34) PG MCHC 33.0 (30-36) % RDW 16.8 H (11.6-14.8) % Plt Count 229 (150-400) X10^3/uL Neut % (Auto) 82.7 H (50-75) % Lymph % (Auto) 8.2 L (25-40) % [place] % (Auto) 6.6 (3-14) % Eos % (Auto) 1.4 L (2-4) % Baso % (Auto) 1.1 (0-2) % Neut # (Auto) 6000 (6328-7227) /uL Lymph # (Auto) 600 L (7350-5760) /uL [place] # (Auto) 500 (0-900) /uL Eos # (Auto) 100 (0-450) /uL Baso # (Auto) 100 (0-100) /uL APTT (26.4-36.2) SECONDS D-Dimer 772 H (<230) ng/mL Sodium 139 (137-145) mmol/L Potassium 4.7 (3.4-5.1) mmol/L Chloride 103 (98-107) mmol/L Carbon Dioxide 22 (22-32) mmol/L BUN 55 H (9-20) mg/dL Creatinine 8.04 H* (0.66-1.25) mg/dL Estimated GFR 6.9 L (>60) mL/min BUN/Creatinine Ratio 6.8 (6-22) Glucose 124 H (70-100) mg/dL Calcium 10.0 (8.4-10.2) mg/dL Magnesium (1.6-2.3) mg/dL Total Bilirubin 0.6 (0.2-1.3) mg/dL AST 32 (17-59) IU/L ALT 19 (<50) IU/L Alkaline Phosphatase 50 (38-126) U/L Troponin I (0.01-0.034) ng/mL NT-Pro-B Natriuret Pep (<125) pg/mL Total Protein 6.9 (6.3-8.2) g/dL Albumin 4.0 (3.5-5.0) g/dL Globulin 2.9 (1.7-4.1) g/dL Albumin/Globulin Ratio 1.4 (1.0-2.8) Lipase (23-300) U/L Chlamy pneumoniae PCR (Not Detect) Adenovirus (PCR) (Not Detect) B. pertussis DNA (PCR) (Not Detecte) B.parapertussis DNA PCR (Not Detecte) Coronavirus OC43 (PCR) (Not Detect) Coronavirus HKU1 (PCR) (Not Detect) Coronavirus 229E (PCR) (Not Detect) SARS-CoV-2 (PCR) (Not Detecte) Coronavirus NL63 (PCR) (Not Detect) Human Metapneumovir PCR (Not Detect) Influenza Type A (PCR) (Not Detect) Influenza Type B (PCR) (Not Detect) M. pneumoniae (PCR) (Not Detect) Parainfluenza 1 (PCR) (Not Detect) Parainfluenza 2 (PCR) (Not Detect) Parainfluenza 3 (PCR) (Not Detect) Parainfluenza 4 (PCR) (Not Detect) RSV (PCR) (Not Detect) Entero/Rhino (PCR) (Not Detect) 02/01/21 02/01/21 02/01/21 Range/Units 02:15 02:15 02:15 WBC (4.5-11.0) X10^3/uL RBC (4.5-5.9) X10^6/uL Hgb (13.5-17.5) g/dL Hct (41-53) % MCV (80-100) fL MCH (26-34) PG MCHC (30-36) % RDW (11.6-14.8) % Plt Count (150-400) X10^3/uL Neut % (Auto) (50-75) % Lymph % (Auto) (25-40) % [place] % (Auto) (3-14) % Eos % (Auto) (2-4) % Baso % (Auto) (0-2) % Neut # (Auto) (6690-8939) /uL Lymph # (Auto) (0830-1546) /uL [place] # (Auto) (0-900) /uL Eos # (Auto) (0-450) /uL Baso # (Auto) (0-100) /uL APTT 31 (26.4-36.2) SECONDS D-Dimer (<230) ng/mL Sodium (137-145) mmol/L Potassium (3.4-5.1) mmol/L Chloride (98-107) mmol/L Carbon Dioxide (22-32) mmol/L BUN (9-20) mg/dL Creatinine (0.66-1.25) mg/dL Estimated GFR (>60) mL/min BUN/Creatinine Ratio (6-22) Glucose (70-100) mg/dL Calcium (8.4-10.2) mg/dL Magnesium 2.5 H (1.6-2.3) mg/dL Total Bilirubin (0.2-1.3) mg/dL AST (17-59) IU/L ALT (<50) IU/L Alkaline Phosphatase (38-126) U/L Troponin I 0.220 H* (0.01-0.034) ng/mL NT-Pro-B Natriuret Pep [id number] H (<125) pg/mL Total Protein (6.3-8.2) g/dL Albumin (3.5-5.0) g/dL Globulin (1.7-4.1) g/dL Albumin/Globulin Ratio (1.0-2.8) Lipase 135 (23-300) U/L Chlamy pneumoniae PCR Not detected (Not Detect) Adenovirus (PCR) Not detected (Not Detect) B. pertussis DNA (PCR) Not detected (Not Detecte) B.parapertussis DNA PCR Not detected (Not Detecte) Coronavirus OC43 (PCR) Not detected (Not Detect) Coronavirus HKU1 (PCR) Not detected (Not Detect) Coronavirus 229E (PCR) Not detected (Not Detect) SARS-CoV-2 (PCR) Detected H (Not Detecte) Coronavirus NL63 (PCR) Not detected (Not Detect) Human Metapneumovir PCR Not detected (Not Detect) Influenza Type A (PCR) Not detected (Not Detect) Influenza Type B (PCR) Not detected (Not Detect) M. pneumoniae (PCR) Not detected (Not Detect) Parainfluenza 1 (PCR) Not detected (Not Detect) Parainfluenza 2 (PCR) Not detected (Not Detect) Parainfluenza 3 (PCR) Not detected (Not Detect) Parainfluenza 4 (PCR) Not detected (Not Detect) RSV (PCR) Not detected (Not Detect) Entero/Rhino (PCR) Not detected (Not Detect) 02/01/21 02/01/21 02/01/21 Range/Units 07:39 09:36 15:40 WBC (4.5-11.0) X10^3/uL RBC (4.5-5.9) X10^6/uL Hgb (13.5-17.5) g/dL Hct (41-53) % MCV (80-100) fL MCH (26-34) PG MCHC (30-36) % RDW (11.6-14.8) % Plt Count (150-400) X10^3/uL Neut % (Auto) (50-75) % Lymph % (Auto) (25-40) % [place] % (Auto) (3-14) % Eos % (Auto) (2-4) % Baso % (Auto) (0-2) % Neut # (Auto) (1703-1297) /uL Lymph # (Auto) (9603-7182) /uL [place] # (Auto) (0-900) /uL Eos # (Auto) (0-450) /uL Baso # (Auto) (0-100) /uL APTT 35 33 (26.4-36.2) SECONDS D-Dimer (<230) ng/mL Sodium (137-145) mmol/L Potassium (3.4-5.1) mmol/L Chloride (98-107) mmol/L Carbon Dioxide (22-32) mmol/L BUN (9-20) mg/dL Creatinine (0.66-1.25) mg/dL Estimated GFR (>60) mL/min BUN/Creatinine Ratio (6-22) Glucose (70-100) mg/dL Calcium (8.4-10.2) mg/dL Magnesium (1.6-2.3) mg/dL Total Bilirubin (0.2-1.3) mg/dL AST (17-59) IU/L ALT (<50) IU/L Alkaline Phosphatase (38-126) U/L Troponin I 0.237 H* (0.01-0.034) ng/mL NT-Pro-B Natriuret Pep (<125) pg/mL Total Protein (6.3-8.2) g/dL Albumin (3.5-5.0) g/dL Globulin (1.7-4.1) g/dL Albumin/Globulin Ratio (1.0-2.8) Lipase (23-300) U/L Chlamy pneumoniae PCR (Not Detect) Adenovirus (PCR) (Not Detect) B. pertussis DNA (PCR) (Not Detecte) B.parapertussis DNA PCR (Not Detecte) Coronavirus OC43 (PCR) (Not Detect) Coronavirus HKU1 (PCR) (Not Detect) Coronavirus 229E (PCR) (Not Detect) SARS-CoV-2 (PCR) (Not Detecte) Coronavirus NL63 (PCR) (Not Detect) Human Metapneumovir PCR (Not Detect) Influenza Type A (PCR) (Not Detect) Influenza Type B (PCR) (Not Detect) M. pneumoniae (PCR) (Not Detect) Parainfluenza 1 (PCR) (Not Detect) Parainfluenza 2 (PCR) (Not Detect) Parainfluenza 3 (PCR) (Not Detect) Parainfluenza 4 (PCR) (Not Detect) RSV (PCR) (Not Detect) Entero/Rhino (PCR) (Not Detect) 02/01/21 Range/Units 15:40 WBC (4.5-11.0) X10^3/uL RBC (4.5-5.9) X10^6/uL Hgb (13.5-17.5) g/dL Hct (41-53) % MCV (80-100) fL MCH (26-34) PG MCHC (30-36) % RDW (11.6-14.8) % Plt Count (150-400) X10^3/uL Neut % (Auto) (50-75) % Lymph % (Auto) (25-40) % [place] % (Auto) (3-14) % Eos % (Auto) (2-4) % Baso % (Auto) (0-2) % Neut # (Auto) (1331-7790) /uL Lymph # (Auto) (1202-8016) /uL [place] # (Auto) (0-900) /uL Eos # (Auto) (0-450) /uL Baso # (Auto) (0-100) /uL APTT (26.4-36.2) SECONDS D-Dimer (<230) ng/mL Sodium (137-145) mmol/L Potassium (3.4-5.1) mmol/L Chloride (98-107) mmol/L Carbon Dioxide (22-32) mmol/L BUN (9-20) mg/dL Creatinine (0.66-1.25) mg/dL Estimated GFR (>60) mL/min BUN/Creatinine Ratio (6-22) Glucose (70-100) mg/dL Calcium (8.4-10.2) mg/dL Magnesium (1.6-2.3) mg/dL Total Bilirubin (0.2-1.3) mg/dL AST (17-59) IU/L ALT (<50) IU/L Alkaline Phosphatase (38-126) U/L Troponin I 0.188 H* (0.01-0.034) ng/mL NT-Pro-B Natriuret Pep (<125) pg/mL Total Protein (6.3-8.2) g/dL Albumin (3.5-5.0) g/dL Globulin (1.7-4.1) g/dL Albumin/Globulin Ratio (1.0-2.8) Lipase (23-300) U/L Chlamy pneumoniae PCR (Not Detect) Adenovirus (PCR) (Not Detect) B. pertussis DNA (PCR) (Not Detecte) B.parapertussis DNA PCR (Not Detecte) Coronavirus OC43 (PCR) (Not Detect) Coronavirus HKU1 (PCR) (Not Detect) Coronavirus 229E (PCR) (Not Detect) SARS-CoV-2 (PCR) (Not Detecte) Coronavirus NL63 (PCR) (Not Detect) Human Metapneumovir PCR (Not Detect) Influenza Type A (PCR) (Not Detect) Influenza Type B (PCR) (Not Detect) M. pneumoniae (PCR) (Not Detect) Parainfluenza 1 (PCR) (Not Detect) Parainfluenza 2 (PCR) (Not Detect) Parainfluenza 3 (PCR) (Not Detect) Parainfluenza 4 (PCR) (Not Detect) RSV (PCR) (Not Detect) Entero/Rhino (PCR) (Not Detect) MDM Narrative Medical decision making narrative: 60-year-old gentleman on chronic dialysis for reasons he does not understand and takes a ?red pill? for his blood pressure does not use any inhalers at home, is not COVID vaccinated and is due for dialysis regularly scheduled later today presents with 2 days of exertional dyspnea now with dyspnea at rest. He is moderately anemic at 9.7 and 29.3 with recent comparison available from September at 11.4 and 34.4. No reports of active or obvious blood loss. Guaiac negative. This may be dilutional l as he is due for his dialysis later today. BNP is dramatically elevated without clinical evidence of congestive heart failure. Likely again related to his chronic renal dysfunction. Troponin is elevated at 0.220 D-dimer is slightly elevated even beyond age corrected. Will anticipate CT angiogram. At this time, he is started on heparin with a heparin bolus. Nitro paste is placed. His blood pressure had been significantly elevated in the 220/120 range when he initially came in however prior to administration of any IV beta-blockers came down to 150/90. With that much lability, will continue to watch before any additional treatment beyond the topical nitrates. Respiratory PCR is currently pending, apparently his roommate, who also is not vaccinated, was recently told he had a positive COVID test and the roommate chose to not believe this and walked out of the facility where he was being evaluated. Patient will need hospital admission with anticipation of cardiac consultation, Nephrology consultation with dialysis and he may be COVID positive. At this point there are no beds in [facility]. Have contacted the [facility] to see if they had other suggestions or ideas. There is suggestion was to contact facilities after morning discharges. Most likely opportunity at this point may well be [facility]. [facility] apparently had multiple patients boarding in their emergency department as does [facility]. Will try all of these again tomorrow in the meantime will continue current care plan in the emergency department with this gentleman. 4:20 + Covid. He will be given 6 mg of IV Decadron. With his renal failure he is not appropriate for remdesivir. With an elevated D-dimer, a CTA is ordered. 5:15 currently on the waiting list for transfer at [facility] in [facility] [place]. All of been notified of his positive COVID status. 6:10 am returns to check on him. She notes that he is continuing to actively use methamphetamine and quite a bit of marijuana. He has told her he does not want to stay in the hospital and wants to go home against medical advice. Told her that is perfectly acceptable with the caveats that he likely will from a combination of his renal failure, methamphetamine use, cardiomyopathy, NSTEMI and COVID. His states that they had a similar conversation in September before he started dialysis. She states that he was happy to start dialysis because it allows him to use more drugs for a longer period of time. She is currently chatting with him now. If you choose to leave will allow him to do so signing Against Medical Advice forms. If he chooses to stay his will be clearly notified of our COVID visitor policy -no live visitors with COVID positive patients. 6:45 Pt has chosen to stay Dr dacosta: Received turned over. Reviewed patient's history and physical exam. Introduced myself to the patient. He is chest pain-free. Is on heparin. Potassium is unremarkable. Does knee dialyzed today. Today is his regularly scheduled dialysis he and he received a CT with contrast overnight. No shortness of breath. Patient tolerating oral intake. Attempted multiple times today to find placement over there were no beds available local facilities. I then discussed the case with hospitalist at [facility] who accepts the patient for transfer. Patient is currently stable for transfer. Discharge Plan Departure Patient Disposition: [facility] Clinical Impression: Non-ST elevation GA (NSTEMI), COVID-19, Chronic kidney disease with end stage renal failure on dialysis, Methamphetamine abuse Cardiomyopathy Qualifiers: Cardiomyopathy type: unspecified Qualified Code(s): I42.9 - Cardiomyopathy, unspecified Hypertension Qualifiers: Hypertension type: primary hypertension Qualified Code(s): I10 - Essential (primary) hypertension Prescriptions: No Action azithromycin 250 mg Tablet 250 mg PO DAILY 0RF amlodipine 10 mg tablet BID 0RF cefuroxime axetil 250 mg tablet 500 mg BID 0RF carvedilol 25 mg tablet BID 0RF
--- NOTE | 2021-02-01 01:48 | DI.RAD.S_ITS ---
PROCEDURE: XR CHEST 1V INDICATIONS: dyspnea TECHNIQUE: One view of the chest was acquired. COMPARISON: [facility], CT, CT ANGIO CHEST PE PROTOCOL, 02/01/2021, 4:36. [facility], CR, XR CHEST 1V, 09/14/2020, 4:21. FINDINGS: Surgical changes and devices: Large bore right-sided central venous catheter with the tip projecting in the mid SVC. Lungs and pleura: Bilateral ill-defined patchy and ground-glass opacities in the perihilar regions and lower lobes. No definite focal consolidation. These are better seen on the comparison CTA chest dated same day. Please see report . No pneumothorax. No pleural effusion Mediastinum: Mediastinal contours appear normal. Heart size is normal. Bones and chest wall: No suspicious bony lesions. Overlying soft tissues appear unremarkable. IMPRESSION: Ill-defined bilateral patchy and ground-glass opacities involving both lungs. These are better seen on the CTA chest dated same day. Please see report. Dictated by: Terrence Valdes M.D. on 02/01/2021 at 8:30 Approved by: Terrence Valdes M.D. on 02/01/2021 at 8:32
[2021-02-01 02:29] LABS: Add Manual Diff / Slide Review NO; Basophils Absolute Auto 100 /uL (0-100); Basophils Percent Auto 1.1 % (0-2); Eosinophils Absolute Auto 100 /uL (0-450); Eosinophils Percent Auto 1.4 % (2-4); Hematocrit 29.3 % (41-53); Hemoglobin 9.7 g/dL (13.5-17.5); Lymphocytes Absolute Auto 600 /uL (1100-4500); Lymphocytes Percent Auto 8.2 % (25-40); Mean Corpuscular Hemoglobin 32.3 PG (26-34); Mean Corpuscular Volume 97.7 fL (80-100); Monocytes Absolute Auto 500 /uL (0-900); Monocytes Percent Auto 6.6 % (3-14); Neutrophils Absolute Auto 6000 /uL (1500-7000); Neutrophils Percent Auto 82.7 % (50-75); Platelet Count 229 X10^3/uL (150-400); Red Cell Distribution Width 16.8 % (11.6-14.8); White Blood Cell Count 7.2 X10^3/uL (4.5-11.0)
[2021-02-01 02:39] LABS: D Dimer 772 ng/mL (<230)
[2021-02-01 02:40] LABS: Alanine Aminotransferase 19 IU/L (<50); Albumin Globulin Ratio 1.4 (1.0-2.8); Alkaline Phosphatase 50 U/L (38-126); Aspartate Aminotransferase 32 IU/L (17-59); BUN Creatinine Ratio 6.8 (6-22); Bilirubin Total 0.6 mg/dL (0.2-1.3); Blood Urea Nitrogen 55 mg/dL (9-20); Carbon Dioxide 22 mmol/L (22-32); Chloride 103 mmol/L (98-107); Estimated Glomerular Filt Rate 6.9 mL/min (>60); Globulin 2.9 g/dL (1.7-4.1); Glucose 124 mg/dL (70-100); HEMOLYSIS < 15 (0-50); Lipase 135 U/L (23-300); Magnesium 2.5 mg/dL (1.6-2.3); Potassium 4.7 mmol/L (3.4-5.1); Sodium 139 mmol/L (137-145); Total Protein 6.9 g/dL (6.3-8.2)
[2021-02-01 03:05] LABS: NT-proBNP (BNP-Adult 18+) 156000 pg/mL (<125)
[2021-02-01] MEDS: HEPARIN 5,000 UNIT/ML VIAL 4000 UNIT IV (03:12)
[2021-02-01] MEDS: NITROGLYCERIN OINT 1 INCH/GM OINT...G. TOP (03:12)
[2021-02-01] MEDS: HEPARIN DRIP 25,000 UNIT/500 ML IV.SOLN 13.6 UNIT IV (03:14)
[2021-02-01] MEDS: METOPROLOL TARTRATE 5 MG/5 ML INJ IV ×3 (03:28→04:06)
[2021-02-01 04:09] LABS: PTT Partial Thromboplastin Tim 31 SECONDS (26.4-36.2)
[2021-02-01 04:14] LABS: Adenovirus Not Detected (Not Detect)
[2021-02-01 04:15] LABS: B. parapertussis Not Detected (Not Detecte); Bordetella pertussis Not Detected (Not Detecte); Chlamydophila pneumoniae Not Detected (Not Detect); Coronavirus 229E Not Detected (Not Detect); Coronavirus HKU1 Not Detected (Not Detect); Coronavirus NL 63 Not Detected (Not Detect); Coronavirus OC43 Not Detected (Not Detect); Human Metapneumovirus Not Detected (Not Detect); Human Rhinovirus/Enterovirus Not Detected (Not Detect); Influenza A Not Detected (Not Detect); Influenza B Not Detected (Not Detect); Mycoplasma pneumoniae Not Detected (Not Detect); Parainfluenza Virus 1 Not Detected (Not Detect); Parainfluenza Virus 2 Not Detected (Not Detect); Parainfluenza Virus 3 Not Detected (Not Detect); Parainfluenza Virus 4 Not Detected (Not Detect); Respiratory Syncytial Virus Not Detected (Not Detect)
--- NOTE | 2021-02-01 04:25 | DI.CT.S_ITS ---
PROCEDURE: CT ANGIO CHEST PE PROTOCOL INDICATIONS: elevated d - dimer, covid+ TECHNIQUE: After the administration of intravenous contrast, 2 mm thick sections acquired from the pulmonary apices to the posterior costophrenic angles. 3-dimensional maximum intensity projection (MIP) coronal and sagittal reformats were then acquired through the thorax. For radiation dose reduction, the following was used: automated exposure control, adjustment of mA and/or kV according to patient size. COMPARISON: None. FINDINGS: Lungs: Scattered subsegmental atelectasis and/or scarring. No focal consolidation. Patchy scattered areas of focal ground-glass and ill-defined opacity, subcentimeter in size are seen scattered throughout the left and right upper lobes, right lower lobe. Please see the montage image for detailed locations and image/series numbers. Airway thickening in keeping with nonspecific bronchitis and/or reactive airways disease. Pleura: Trace bilateral pleural effusions with adjacent atelectasis. No pneumothorax Heart: Enlarged. No pericardial effusion. Mild coronary atherosclerosis. Chest nodes: Mildly prominent bilateral axillary lymph nodes. No hilar or mediastinal lymphadenopathy by size criteria. Calcified subcarinal lymph node incidentally noted. Thyroid gland: Unremarkable Aorta: Normal in size. Scattered atheromatous calcifications in the aorta. Pulmonary arteries: Enlarged, raising possibility of pulmonary arterial hypertension. No intraluminal filling defect. Esophagus: Possible circumferential mural thickening which could reflect non-specific esophagitis although further evaluation with endoscopy could be performed as necessary. Upper abdomen and chest wall: No significant findings. Bones: No compression fracture. Diffuse spondylitic changes and facet arthropathy. IMPRESSION: No evidence of pulmonary embolism. No aortic dissection identified. Small bilateral pleural effusions with adjacent atelectasis. Scattered ill-defined small nodular and ground-glass opacities involving both lungs.This could represent early bronchopneumonia, atypical/viral pneumonitis, septic emboli among other possibilities. If there is persistent clinical diagnostic uncertainty, continued surveillance with short interval radiographic followup after treatment is recommended. Airway thickening in keeping with nonspecific bronchitis and/or reactive airways disease. Findings concordant with the preliminary study interpretation provided at the time of the exam. Additional chronic and incidental findings as above. Dictated by: Terrence Valdes M.D. on 02/01/2021 at 8:18 Approved by: Terrence Valdes M.D. on 02/01/2021 at 8:25
[2021-02-01] MEDS: DEXAMETHASONE 10 MG/ML VIAL 6 MG IV (05:24)
[2021-02-01 08:06] LABS: Troponin I 0.237 ng/mL (0.01-0.034)
[2021-02-01 08:57] LABS: SARS- CoV-2 Detected (Not Detecte)
[2021-02-01 10:02] LABS: PTT Partial Thromboplastin Tim 35 SECONDS (26.4-36.2)
[2021-02-01] MEDS: HEPARIN 5,000 UNIT/ML VIAL 3000 UNIT IV ×2 (10:33→17:27)
--- NOTE | 2021-02-01 10:36 | PC.NURSE ---
per protocol, pt given 3000unit bolus, and increased rate by 2ml
[2021-02-01 16:10] LABS: PTT Partial Thromboplastin Tim 33 SECONDS (26.4-36.2)
[2021-02-01 16:28] LABS: Troponin I 0.188 ng/mL (0.01-0.034)
== END 2021-02-01 19:15 | disposition short-term general hospital (02) ==
PROVIDERS: Emergency Medicine; Emergency Provider Emergency Medicine
DX: I21.4 Non-ST elevation (NSTEMI) myocardial infarction (principal); U07.1 COVID-19; I42.9 Cardiomyopathy, unspecified; N18.6 End stage renal disease; Z99.2 Dependence on renal dialysis; I12.0 Hypertensive chronic kidney disease with stage 5 chronic kidney disease or end stage renal disease; F15.10 Other stimulant abuse, uncomplicated
CPT/HCPCS: 36415; 71045; 71275; 80053; 83690; 83735; 83880; 84484; 85025; 85379; 85730; 87633; 93005; 96365; 96366; 96375; 96376; 99285; J1100; J1644; Q9967

== ENCOUNTER 2021-04-17 23:01 | Inpatient (IN) | payer MEDICAID, OTHER, SELFPAY ==
[2021-04-17 23:09] VITALS: BP 181/97; PULSE 71; PULSE 75; RESP 24; TEMP 36.6; O2SAT 88; O2SAT 90
--- NOTE | 2021-04-17 23:14 | ED.GENADULT ---
HPI - General Adult General Chief complaint: Shortness of Breath/Dyspnea Stated complaint: cough Time Seen by Provider: 04/17/21 23:14 History of Present Illness HPI narrative: 61-year-old gentleman with a history of a chronic kidney disease on dialysis, prior stroke, uncontrolled hypertension, history of methamphetamine use, COPD, Covid 19 in [place] and psoriasis presents with significant dyspnea to the point that he is unable to sleep. He states that he dialyzes Sunday and Sunday and did dialyze yesterday. He states that he has inhalers but does not use them. States that he has been taking his blood pressure medication. He states he is having trouble laying down flat but not noticing any extra lower extremity edema. He describes a significant nonproductive cough and wheeze is audible from outside the room. He denies overt chest pain or palpitations. States he has not had vomiting or diarrhea. States that he has stopped using methamphetamine. He seems significantly emotionally detached from the apparent severity of his physical illness Related Data Home Medications Medication Instructions Recorded Confirmed amlodipine 10 mg tablet mg BID 09/14/20 azithromycin 250 mg tablet 250 mg PO DAILY 09/14/20 09/14/20 carvedilol 25 mg tablet mg BID 09/14/20 cefuroxime axetil 250 mg tablet 500 mg BID 09/14/20 09/14/20 Allergies Allergy/AdvReac Type Severity Reaction Status Date / Time No Known Drug Allergies Allergy Verified 10/07/20 15:01 Review of Systems Review of Systems Narrative: Remainder of complete review of systems is otherwise unremarkable except for that included in the HPI. Patient History Medical History (Updated 04/18/21 @ 03:50 by Jyotsna Watson MD) Cardiomyopathy COPD (chronic obstructive pulmonary disease) CVA (cerebral vascular accident) Dialysis patient Hypertension Methamphetamine use Psoriasis Social History household members: family Smoking Status: Current every day smoker Smoking Status: Current every day smoker alcohol intake frequency: holidays/special occasions only Substance Use Type: marijuana and methamphetamine Exam Initial Vital Signs Initial Vital Signs: Vital Signs Temperature 97.9 F 04/17/21 23:09 Pulse Rate 71 04/17/21 23:09 Respiratory Rate 24 04/17/21 23:09 Blood Pressure 181/97 H 04/17/21 23:09 Pulse Oximetry 88 L 04/17/21 23:09 General: Chronically ill-appearing gentleman with audible wheeze and moderate respiratory distress. Able to speak in 3-4 word sentences with 2 L of nasal cannula oxygen in place HEENT: Dry mucous membranes, normal sclera with reactive pupils, Neck: +JVD, supple Respiratory: Lungs with significant wheeze, no rhonchi, poor overall air movement with accessory muscle use and tachypnea Cardiac: Regular rate and rhythm no murmurs no bruits Abdomen: Soft, nontender, good bowel tones, no flank pain Skin: Warm and dry, multiple psoriatic plaques Neurologic: Globally weak but Grossly neurologically intact with no obvious asymmetries or abnormalities Extremities: No trauma, 2-3 second capillary refill Psych: Cantankerous with poor insight Course Orders Ordered: ED Orders 04/17/21 23:05 COVID19 -Nasal swab/Pre-Proc Stat 04/17/21 23:15 Complete Blood Count AUTO DIFF Stat Comprehensive Metabolic Panel Stat D Dimer Stat Lactate (Lactic Acid) Stat Magnesium Stat NT-proBNP (BNP-Adult 18+) Stat Procalcitonin Stat Troponin I Stat 04/17/21 23:37 XR chest 1V Stat 04/17/21 23:43 Blood Culture Stat 04/18/21 EKG-12 Lead Routine 04/18/21 00:01 Sputum Culture Stat 04/18/21 01:54 Urinalysis and Microscopic Stat Urine Drug Screen, Rapid Stat 04/18/21 02:13 BiPAP Ventilatory Support RT PROTOCOL 04/18/21 04:30 Consult to Discharge Planning Routine Consult to Hospice Referral Urgent Lorazepam (Lorazepam 2 Mg/Ml Inj) 1 mg IV Q1HR PRN PRN Reason: Agitation/Anxiety Morphine Sulfate (Morphine 2 Mg/Ml Inj) 2 mg IV Q5MIN PRN PRN Reason: Chest Pain Last Admin: 04/18/21 02:42 Dose: 2 mg Documented by: TG Morphine Sulfate (Morphine 2 Mg/Ml Inj) 2 mg IV Q5MIN PRN PRN Reason: Dyspnea Morphine Sulfate (Morphine 2 Mg/Ml Inj) 2 mg IV Q15M PRN PRN Reason: Pain/Dyspnea Ondansetron HCl (Ondansetron 4 Mg/2 Ml Inj) 4 mg IV Q4HR PRN PRN Reason: Nausea And Vomiting Discontinued Medications Albuterol/Ipratropium (Albuterol/Ipratropium 3 Ml Ampul) 3 ml INH NOW ONE Stop: 04/17/21 23:35 Last Admin: 04/17/21 23:45 Dose: 3 ml Documented by: TG Albuterol/Ipratropium (Albuterol/Ipratropium 3 Ml Ampul) 3 ml INH NOW ONE Stop: 04/18/21 02:14 Furosemide 120 mg/ Sodium (Chloride) 62 mls @ 124 mls/hr IV NOW ONE Stop: 04/18/21 00:44 Last Infusion: 04/18/21 01:33 Dose: 0 mls/hr Documented by: Admin: 04/18/21 00:57 Dose: 124 mls/hr Documented by: ANTELMO Piperacillin Sod/Tazobactam (Sod 4.5 gm/ Sodium Chloride) 100 mls @ 200 mls/hr IV NOW ONE Stop: 04/18/21 01:01 Last Infusion: 04/18/21 02:10 Dose: 0 mls/hr Documented by: Admin: 04/18/21 01:33 Dose: 200 mls/hr Documented by: CIRILO Lorazepam (Lorazepam 2 Mg/Ml Inj) 1 mg IV NOW ONE Stop: 04/18/21 00:44 Last Admin: 04/18/21 00:57 Dose: 1 mg Documented by: ANTELMO Methylprednisolone (Methylprednisolone 125 Mg/2 Ml Vial) 125 mg IV NOW ONE Stop: 04/17/21 23:38 Last Admin: 04/17/21 23:40 Dose: 125 mg Documented by: NOEMI Vital Signs Vital signs: Vital Signs - 8 hr 04/17/21 23:09 04/17/21 23:27 04/17/21 23:30 Temperature 97.9 F Pulse Rate 75 71 73 Respiratory Rate 24 24 Blood Pressure 181/97 H Pulse Oximetry 90 L 94 93 04/18/21 00:00 04/18/21 00:30 04/18/21 01:00 Temperature Pulse Rate 69 72 71 Respiratory Rate 31 H 30 H 27 H Blood Pressure Pulse Oximetry 95 90 L 97 04/18/21 01:30 04/18/21 01:37 04/18/21 02:00 Temperature Pulse Rate 79 84 80 Respiratory Rate 31 H 38 H 36 H Blood Pressure 182/105 H Pulse Oximetry 89 L 04/18/21 02:07 04/18/21 02:30 Temperature Pulse Rate 76 79 Respiratory Rate 30 H 34 H Blood Pressure 189/107 H Pulse Oximetry 90 L Medical Decision Making Lab Data Result diagrams: 04/17/21 23:15 04/17/21 23:15 Labs: Lab Results 04/17/21 04/17/21 04/17/21 Range/Units 23:05 23:15 23:15 WBC 7.1 (4.5-11.0) X10^3/uL RBC 2.97 L (4.5-5.9) X10^6/uL Hgb 10.2 L (13.5-17.5) g/dL Hct 30.1 L (41-53) % MCV 101.1 H (80-100) fL MCH 34.2 H (26-34) PG MCHC 33.9 (30-36) % RDW 14.9 H (11.6-14.8) % Plt Count 233 (150-400) X10^3/uL Neut % (Auto) 74.0 (50-75) % Lymph % (Auto) 11.3 L (25-40) % [place] % (Auto) 8.4 (3-14) % Eos % (Auto) 3.3 (2-4) % Baso % (Auto) 3.0 H (0-2) % Neut # (Auto) 5300 (7383-2884) /uL Lymph # (Auto) 800 L (6662-7652) /uL [place] # (Auto) 600 (0-900) /uL Eos # (Auto) 200 (0-450) /uL Baso # (Auto) 200 H (0-100) /uL D-Dimer 818 H (<230) ng/mL Sodium (137-145) mmol/L Potassium (3.4-5.1) mmol/L Chloride (98-107) mmol/L Carbon Dioxide (22-32) mmol/L BUN (9-20) mg/dL Creatinine (0.66-1.25) mg/dL Estimated GFR (>60) mL/min BUN/Creatinine Ratio (6-22) Glucose (80-110) mg/dL Lactate (0.7-2.1) mmol/L Calcium (8.4-10.2) mg/dL Magnesium (1.6-2.3) mg/dL Total Bilirubin (0.2-1.3) mg/dL AST (17-59) IU/L ALT (<50) IU/L Alkaline Phosphatase (38-126) U/L Troponin I (0.01-0.034) ng/mL NT-Pro-B Natriuret Pep (<125) pg/mL Total Protein (6.3-8.2) g/dL Albumin (3.5-5.0) g/dL Globulin (1.7-4.1) g/dL Albumin/Globulin Ratio (1.0-2.8) Procalcitonin (<0.5) ng/mL Urine Color Urine Appearance Urine pH (4.5-8.0) Ur Specific [place] (1.000-1.035) Urine Protein (Negative) Urine Glucose (UA) (Negative) g/dL Urine Ketones (NEGATIVE) Urine Occult Blood (Negative) Urine Nitrate (Negative) Urine Bilirubin (NEGATIVE) Urine Urobilinogen (0.2) E.U./dL Ur Leukocyte Esterase (NEGATIVE) Urine RBC (0-5/HPF) Urine WBC (0-5/HPF) Urine Bacteria (None) Ur Culture Indicated? U Opiates 300ng/mL cut (Negative) Ur Oxycodone Screen (Negative) Urine Methadone Screen (Negative) Ur Barbiturates Screen (Negative) U Tricyclic Antidepress (Negative) Ur Phencyclidine Scrn (Negative) Ur Amphetamines Screen (Negative) U Methamphetamines Scrn (Negative) Ur MDMA Scrn (Ecstasy) (Negative) U Benzodiazepines Scrn (Negative) Urine Cocaine Screen (Negative) U Marijuana (THC) Screen (Negative) SARS-CoV-2 (PCR) Negative (Negative) 04/17/21 04/17/21 04/18/21 Range/Units 23:15 23:15 01:54 WBC (4.5-11.0) X10^3/uL RBC (4.5-5.9) X10^6/uL Hgb (13.5-17.5) g/dL Hct (41-53) % MCV (80-100) fL MCH (26-34) PG MCHC (30-36) % RDW (11.6-14.8) % Plt Count (150-400) X10^3/uL Neut % (Auto) (50-75) % Lymph % (Auto) (25-40) % [place] % (Auto) (3-14) % Eos % (Auto) (2-4) % Baso % (Auto) (0-2) % Neut # (Auto) (9530-2868) /uL Lymph # (Auto) (7252-7257) /uL [place] # (Auto) (0-900) /uL Eos # (Auto) (0-450) /uL Baso # (Auto) (0-100) /uL D-Dimer (<230) ng/mL Sodium 139 (137-145) mmol/L Potassium 4.6 (3.4-5.1) mmol/L Chloride 102 (98-107) mmol/L Carbon Dioxide 24 (22-32) mmol/L BUN 42 H (9-20) mg/dL Creatinine 7.94 H* (0.66-1.25) mg/dL Estimated GFR 7.0 L (>60) mL/min BUN/Creatinine Ratio 5.3 L (6-22) Glucose 100 (80-110) mg/dL Lactate 0.9 (0.7-2.1) mmol/L Calcium 8.3 L (8.4-10.2) mg/dL Magnesium 2.5 H (1.6-2.3) mg/dL Total Bilirubin 0.5 (0.2-1.3) mg/dL AST 63 H (17-59) IU/L ALT 126 H (<50) IU/L Alkaline Phosphatase 71 (38-126) U/L Troponin I 0.158 H* (0.01-0.034) ng/mL NT-Pro-B Natriuret Pep 900575 H (<125) pg/mL Total Protein 6.9 (6.3-8.2) g/dL Albumin 4.1 (3.5-5.0) g/dL Globulin 2.8 (1.7-4.1) g/dL Albumin/Globulin Ratio 1.5 (1.0-2.8) Procalcitonin 0.87 H (<0.5) ng/mL Urine Color Yellow Urine Appearance Clear Urine pH 8.0 (4.5-8.0) Ur Specific [place] 1.015 (1.000-1.035) Urine Protein 3+ H (Negative) Urine Glucose (UA) Trace H (Negative) g/dL Urine Ketones Negative (NEGATIVE) Urine Occult Blood Trace-intact (Negative) Urine Nitrate Negative (Negative) Urine Bilirubin Negative (NEGATIVE) Urine Urobilinogen 0.2 (0.2) E.U./dL Ur Leukocyte Esterase Negative (NEGATIVE) Urine RBC 0-1/hpf (0-5/HPF) Urine WBC 0-1/hpf (0-5/HPF) Urine Bacteria None seen (None) Ur Culture Indicated? Cult not indicated U Opiates 300ng/mL cut (Negative) Ur Oxycodone Screen (Negative) Urine Methadone Screen (Negative) Ur Barbiturates Screen (Negative) U Tricyclic Antidepress (Negative) Ur Phencyclidine Scrn (Negative) Ur Amphetamines Screen (Negative) U Methamphetamines Scrn (Negative) Ur MDMA Scrn (Ecstasy) (Negative) U Benzodiazepines Scrn (Negative) Urine Cocaine Screen (Negative) U Marijuana (THC) Screen (Negative) SARS-CoV-2 (PCR) (Negative) 04/18/21 Range/Units 01:54 WBC (4.5-11.0) X10^3/uL RBC (4.5-5.9) X10^6/uL Hgb (13.5-17.5) g/dL Hct (41-53) % MCV (80-100) fL MCH (26-34) PG MCHC (30-36) % RDW (11.6-14.8) % Plt Count (150-400) X10^3/uL Neut % (Auto) (50-75) % Lymph % (Auto) (25-40) % [place] % (Auto) (3-14) % Eos % (Auto) (2-4) % Baso % (Auto) (0-2) % Neut # (Auto) (8048-2304) /uL Lymph # (Auto) (3785-9806) /uL [place] # (Auto) (0-900) /uL Eos # (Auto) (0-450) /uL Baso # (Auto) (0-100) /uL D-Dimer (<230) ng/mL Sodium (137-145) mmol/L Potassium (3.4-5.1) mmol/L Chloride (98-107) mmol/L Carbon Dioxide (22-32) mmol/L BUN (9-20) mg/dL Creatinine (0.66-1.25) mg/dL Estimated GFR (>60) mL/min BUN/Creatinine Ratio (6-22) Glucose (80-110) mg/dL Lactate (0.7-2.1) mmol/L Calcium (8.4-10.2) mg/dL Magnesium (1.6-2.3) mg/dL Total Bilirubin (0.2-1.3) mg/dL AST (17-59) IU/L ALT (<50) IU/L Alkaline Phosphatase (38-126) U/L Troponin I (0.01-0.034) ng/mL NT-Pro-B Natriuret Pep (<125) pg/mL Total Protein (6.3-8.2) g/dL Albumin (3.5-5.0) g/dL Globulin (1.7-4.1) g/dL Albumin/Globulin Ratio (1.0-2.8) Procalcitonin (<0.5) ng/mL Urine Color Urine Appearance Urine pH (4.5-8.0) Ur Specific [place] (1.000-1.035) Urine Protein (Negative) Urine Glucose (UA) (Negative) g/dL Urine Ketones (NEGATIVE) Urine Occult Blood (Negative) Urine Nitrate (Negative) Urine Bilirubin (NEGATIVE) Urine Urobilinogen (0.2) E.U./dL Ur Leukocyte Esterase (NEGATIVE) Urine RBC (0-5/HPF) Urine WBC (0-5/HPF) Urine Bacteria (None) Ur Culture Indicated? U Opiates 300ng/mL cut Negative (Negative) Ur Oxycodone Screen Negative (Negative) Urine Methadone Screen Negative (Negative) Ur Barbiturates Screen Negative (Negative) U Tricyclic Antidepress Negative (Negative) Ur Phencyclidine Scrn Negative (Negative) Ur Amphetamines Screen Negative (Negative) U Methamphetamines Scrn Negative (Negative) Ur MDMA Scrn (Ecstasy) Negative (Negative) U Benzodiazepines Scrn Negative (Negative) Urine Cocaine Screen Negative (Negative) U Marijuana (THC) Screen Negative (Negative) SARS-CoV-2 (PCR) (Negative) Imaging Data Chest x-ray: Radiologist's Impression: FINDINGS:? ? Surgical changes and devices:? A right IJ dialysis catheter is well positioned. ? Lungs and pleura:? Diffuse bilateral airspace opacities and right basilar atelectasis are present.? No focal consolidation.? No pneumothorax. ? Mediastinum:? Mediastinal contours appear normal.? Heart size is normal.? ? Bones and chest wall:? No suspicious bony lesions.? Overlying soft tissues appear unremarkable.? ? IMPRESSION: ? Diffuse bilateral airspace opacities likely due to volume overload and right basilar atelectasis.? ? ? Dictated by: Ganesh Chavira M.D. on 04/17/2021 at 23:55? ?? ECG Data Interpretation: Sinus rhythm at a rate of 72 Normal intervals, normal axis Inverted T-waves anteriorly question ischemia, no immediate comparisons available MDM Narrative Medical decision making narrative: 61-year-old gentleman with ischemic cardiomyopathy, stage 5 kidney disease dialyzes Sunday, history of methamphetamine use presents with increasing shortness of breath and productive cough without fever. He states the shortness of breath is severe enough that he is unable to sleep for the past 24 hours. He never lies down flat. He denies fevers or palpitations. He states he did dialyze yesterday. Chest x-ray suggests fluid overload, sputum an elevated procalcitonin suggest possibility of developing pulmonary infection. He is COVID negative today. Reportedly was COVID positive in January and was transferred to [facility] or his 2nd consecutive COVID tests were negative and he was eventually discharged home. His COPD exacerbation is significant causing significant hypoxia that is responding well to nasal cannula oxygen. His troponin is elevated however it is lower than it has been with previous documentation and I suspect that this is due to his dialysis rather than acute coronary syndrome. He does have flipped anterior T-waves in I do not have prior EKGs for comparison. He is not complaining of over chest pain or palpitations. Will follow troponins for the time being but will not initiate heparin. He will need hospitalization for acute COPD exacerbation as well as his congestive heart failure and this will need to be in a facility where he can be dialyzed. He states that he does still make urine so will try some Lasix to see if that has any effect. With concerns for developing pulmonary infection will begin Zosyn given his frequent interactions with medical facilities and dialysis. 220 patient is getting significantly worse with increased work of breathing, increased wheezing and obvious fatigue. Again clarified with both patient and his son who is at bedside that he is definitely DNR/DNI. His son is aware that his breathing status is critical and is contacting additional family members at this time. We will try BiPAP and see if that is of any help. Also discussed with the son adding morphine to help with the sense of air hunger as his clinical situation deteriorates. Focus at this point is on comfort with his breathing. 315 patient did not tolerate BiPAP at all. Much more comfortable with morphine to help with his air hunger. His work of breathing continues with shallow ineffective breathing becoming more tachypneic. Reviewed with his son and discussed moving to full comfort measures which means discontinuing dialysis as well. His mother and the patient's estranged is on her way in. She technically has [id number] and prefers that the son make decisions as she still has a number of unresolved emotional issues regarding their to sharon was 35 year relationship. He has been in touch with her over the phone and she does agree with changes as outlined above and refocus on comfort 345 with son and patient discussion is very clear that we want to move to full comfort admission. We will be stopping dialysis and no longer checking additional lab work. Patient actually seems quite relieved with this decision and is significantly more comfortable with morphine on board and air hunger appropriately treated. Tachypnea is continuing to increase as are very shallow ineffective breaths with severe wheeze noted. Will contact the hospitalist service for admission and will continue with oxygen administration and morphine as needed while he remains in the emergency department. Critical Care Time Critical Care Time Critical Care Time: Yes Total Critical Care Time: 33 Attestation: Critical care time is separate from other billable procedures. There is a high probability of a significant, sudden or life-threatening deterioration that requires my full and direct attention, intervention and personal management. This critical care time includes consultation with family and other consulting doctors, review of records, and interpretation of data from labs, EKGs and imaging as well as managements of acute respiratory failure with multiple family discussions and eventual decision to move to full comfort care. Discharge Plan Departure Patient Disposition: [facility] Clinical Impression: Need for comfort care, Acute exacerbation of chronic obstructive pulmonary disease, Dialysis patient Respiratory failure Qualifiers: Chronicity: acute Respiratory failure complication: hypoxia and hypercapnia Qualified Code(s): J96.01 - Acute respiratory failure with hypoxia Cardiomyopathy Qualifiers: Cardiomyopathy type: ischemic Qualified Code(s): I25.5 - Ischemic cardiomyopathy Hypertension Qualifiers: Hypertension type: primary hypertension Qualified Code(s): I10 - Essential (primary) hypertension Congestive heart failure Qualifiers: Heart failure type: diastolic Heart failure chronicity: acute on chronic Qualified Code(s): I50.33 - Acute on chronic diastolic (congestive) heart failure Admit Provider: Codie Bran
[2021-04-17 23:27] VITALS: PULSE 71; RESP 24; O2SAT 94
[2021-04-17 23:30] VITALS: PULSE 73; O2SAT 93
[2021-04-17 23:30] LABS: COVID19 -Nasal RAPID Negative (Negative)
--- NOTE | 2021-04-17 23:37 | DI.RAD.S_ITS ---
PROCEDURE: XR CHEST 1V INDICATIONS: dyspnea TECHNIQUE: One view of the chest was acquired. COMPARISON: [facility], CR, XR CHEST 1 VIEW, 02/01/2021, 21:39. [facility], CR, XR CHEST 2 VIEWS, 04/13/2021, 15:33. [facility], CR, XR CHEST 1V, 02/01/2021, 2:15. FINDINGS: Surgical changes and devices: A right IJ dialysis catheter is well positioned. Lungs and pleura: Diffuse bilateral airspace opacities and right basilar atelectasis are present. No focal consolidation. No pneumothorax. Mediastinum: Mediastinal contours appear normal. Heart size is normal. Bones and chest wall: No suspicious bony lesions. Overlying soft tissues appear unremarkable. IMPRESSION: Diffuse bilateral airspace opacities likely due to volume overload and right basilar atelectasis. Dictated by: Ganesh Chavira M.D. on 04/17/2021 at 23:55 Approved by: Ganesh Chavira M.D. on 04/17/2021 at 23:58
[2021-04-17] MEDS: methylPREDNISolone 125 MG/2 ML VIAL IV (23:40)
[2021-04-17 23:44] LABS: Add Manual Diff / Slide Review NO; Basophils Absolute Auto 200 /uL (0-100); Eosinophils Absolute Auto 200 /uL (0-450); Eosinophils Percent Auto 3.3 % (2-4); Hematocrit 30.1 % (41-53); Hemoglobin 10.2 g/dL (13.5-17.5); Lymphocytes Absolute Auto 800 /uL (1100-4500); Lymphocytes Percent Auto 11.3 % (25-40); Mean Corpuscular HGB Conc 33.9 % (30-36); Mean Corpuscular Hemoglobin 34.2 PG (26-34); Mean Corpuscular Volume 101.1 fL (80-100); Monocytes Absolute Auto 600 /uL (0-900); Monocytes Percent Auto 8.4 % (3-14); Neutrophils Absolute Auto 5300 /uL (1500-7000); Platelet Count 233 X10^3/uL (150-400); Red Blood Cell Count 2.97 X10^6/uL (4.5-5.9); Red Cell Distribution Width 14.9 % (11.6-14.8); White Blood Cell Count 7.1 X10^3/uL (4.5-11.0)
[2021-04-17] MEDS: ALBUTEROL/IPRATROPIUM 3 ML AMPUL INH (23:45)
[2021-04-17 23:48] LABS: D Dimer 818 ng/mL (<230)
[2021-04-17 23:49] LABS: Lactate (Lactic Acid) 0.9 mmol/L (0.7-2.1)
[2021-04-17 23:51] LABS: Alanine Aminotransferase 126 IU/L (<50); Albumin 4.1 g/dL (3.5-5.0); Albumin Globulin Ratio 1.5 (1.0-2.8); Alkaline Phosphatase 71 U/L (38-126); Aspartate Aminotransferase 63 IU/L (17-59); Bilirubin Total 0.5 mg/dL (0.2-1.3); Blood Urea Nitrogen 42 mg/dL (9-20); Calcium 8.3 mg/dL (8.4-10.2); Carbon Dioxide 24 mmol/L (22-32); Chloride 102 mmol/L (98-107); Globulin 2.8 g/dL (1.7-4.1); Glucose 100 mg/dL (80-110); HEMOLYSIS < 15 (0-50); Magnesium 2.5 mg/dL (1.6-2.3); Potassium 4.6 mmol/L (3.4-5.1); Sodium 139 mmol/L (137-145); Total Protein 6.9 g/dL (6.3-8.2)
[2021-04-17 23:58] LABS: BUN Creatinine Ratio 5.3 (6-22)
[2021-04-18] VITALS (10 sets, daily range): BP systolic 182–189; BP diastolic 105–107; PULSE 63–84; RESP 16–38; O2SAT 85–97; BMI 21.6
[2021-04-18 00:08] LABS: Procalcitonin 0.87 ng/mL (<0.5)
[2021-04-18 00:16] LABS: NT-proBNP (BNP-Adult 18+) 142000 pg/mL (<125)
[2021-04-18 00:29] LABS: Troponin I 0.158 ng/mL (0.01-0.034)
[2021-04-18] MEDS: LORazepam 2 MG/ML INJ 1 MG IV ×3 (00:57→10:23)
[2021-04-18] MEDS: FUROSEMIDE 120 MG in SODIUM CHLORIDE 0.9% 50 ML 124 ML IV (00:57)
[2021-04-18] MEDS: PIPERACILLIN/TAZO 4.5 GM in SODIUM CHLORIDE 0.9% 100 ML 200 ML IV (01:33)
[2021-04-18 02:05] LABS: Appearance Urine UA CLEAR; Bilirubin Urine UA NEGATIVE (NEGATIVE); Color Urine UA YELLOW; Glucose Urine UA TRACE g/dL (Negative); Ketones Urine UA NEGATIVE (NEGATIVE); Leukocyte Esterase Urine UA NEGATIVE (NEGATIVE); Nitrite Urine UA NEGATIVE (Negative); Occult Blood Urine UA TRACE-INTACT (Negative); Protein Urine UA 3+ (Negative); Specific Gravity Urine UA 1.015 (1.000-1.035); Urobilinogen Urine UA 0.2 E.U./dL (0.2)
[2021-04-18 02:09] LABS: UR Morphine/Opiate cutoff 300 Negative (Negative); Ur Creatinine Normal (Normal); Ur Specific Gravity Normal (Normal); Urine Amphetamines Negative (Negative); Urine Barbiturates Negative (Negative); Urine Benzodiazepines Negative (Negative); Urine Cocaine Negative (Negative); Urine MDMA Negative (Negative); Urine Methadone Negative (Negative); Urine Methamphetamines Negative (Negative); Urine Oxycodone Negative (Negative); Urine Phencyclidine Negative (Negative); Urine Tetrahydrocannabinol Negative (Negative); Urine Tricyclic Antidepressant Negative (Negative); Urine pH Normal (Normal)
[2021-04-18 02:11] LABS: Bacteria Urine None Seen; Culture Indicated Urine Cult Not Indicated; RBC Urine 0-1/HPF (0-5/HPF); WBC Urine 0-1/HPF (0-5/HPF)
[2021-04-18] MEDS: MORPHINE 2 MG/ML INJ IV ×4 (02:42→06:32)
[2021-04-18] MEDS: MORPHINE 10 MG/ML INJ (03:22)
--- NOTE | 2021-04-18 03:59 | PC.NURSE ---
Summary of care: Pt arrived to ER very SOB, wheezes audible from the doorway. Hx COPD, end stage renal disease on dialysis, recent Covid. Nursing/medical interventions offered little relief. After admin of ativan for anxiety/air hunger, pt became obtunded. Son was at bedside and involved in plan of care. Pt did not tolerate bipap trial and became increasing distressed. Pt's son reported that pt would not want intubation or resussication, and so goal of care transitioned to comfort. Total of 10 mg morphine given in divided doses; pt is now resting comfortably with son and former at bedside.
--- NOTE | 2021-04-18 05:45 | P.HP_ITS ---
History of Present Illness History of Present Illness Date Patient Seen: 04/18/21 Time Patient Seen: 04:37 Chief complaint: cough Narrative: Madhu Fontaine is a 61-year-old gentleman with ischemic cardiomyopathy, COPD, hx of CVA, HTN, stage 5 kidney disease dialyzes Sunday, history of methamphetamine use presents with increasing shortness of breath and productive cough without fever.? He states the shortness of breath is severe enough that he is unable to sleep for the past 24 hours.? He never lies down flat.? He denies fevers or palpitations.? He states he did dialyze yesterday.? Chest x-ray suggests fluid overload, sputum an elevated procalcitonin suggest possibility of developing pulmonary infection.? He is COVID negative today.? Reportedly was COVID positive in January and was transferred to [facility] or his 2nd consecutive COVID tests were negative and he was eventually discharged home.? His COPD exacerbation is significant causing significant hypoxia that is responding well to nasal cannula oxygen. Per Dr. Tanner ED:220am patient is getting significantly worse with increased work of breathing, increased wheezing and obvious fatigue.? Again clarified with both patient and his son who is at bedside that he is definitely DNR/DNI.? His son is aware that his breathing status is critical and is contacting additional family members at this time.? We will try BiPAP and see if that is of any help.? Also discussed with the son adding morphine to help with the sense of air hunger as his clinical situation deteriorates.? Focus at this point is on comfort with his breathing. 315am patient did not tolerate BiPAP at all.? Much more comfortable with morphine to help with his air hunger.? His work of breathing continues with shallow ineffective breathing becoming more tachypneic.? Reviewed with his son and discussed moving to full comfort measures which means discontinuing dialysis as well.? His mother and the patient's estranged is on her way in.? She technically has [id number] and prefers that the son make decisions as she still has a number of unresolved emotional issues regarding their to mulch was 35 year relationship.? He has been in touch with her over the phone and she does agree with changes as outlined above and refocus on comfort 345am with son and patient discussion is very clear that we want to move to full comfort admission.? We will be stopping dialysis and no longer checking additional lab work.? Patient actually seems quite relieved with this decision and is significantly more comfortable with morphine on board and air hunger appropriately treated.? Tachypnea is continuing to increase as are very shallow ineffective breaths with severe wheeze noted.? Will contact the hospitalist service for admission and will continue with oxygen administration and morphine as needed while he remains in the emergency department. Patient admitted for end of life comfort care, acute respiratory failure secondary to COPD exacerbation and CKD stage 5 requiring dialysis, patient is sleeping, with tachypneic labored breathing. Patient's son and are at the bedside. Patient History Medical History (Updated 04/18/21 @ 05:53 by PATRICIA Cha) Cardiomyopathy COPD (chronic obstructive pulmonary disease) CVA (cerebral vascular accident) Dialysis patient Hypertension Methamphetamine use Psoriasis Family & Social History Social History: household members family Tobacco & Substance use: Tobacco type cigarettes Smoking Status Current every day smoker alcohol intake frequency holiday/special occasion Substance Use Type marijuana,methamphetamine Meds Home Medications and Allergies Home Medications Medication Instructions Recorded Confirmed Type amlodipine 10 mg tablet mg BID 09/14/20 History azithromycin 250 mg tablet 250 mg PO DAILY 09/14/20 09/14/20 History carvedilol 25 mg tablet mg BID 09/14/20 History cefuroxime axetil 250 mg tablet 500 mg BID 09/14/20 09/14/20 History Allergies Allergy/AdvReac Type Severity Reaction Status Date / Time No Known Drug Allergies Allergy Verified 10/07/20 15:01 Review of Systems Review of Systems Narrative: ROS not completed as patient is resting and admitted for comfort care. Exam Vital Signs (past 8 hours): - 04/17/21 23:09 04/17/21 23:27 04/17/21 23:30 Temperature 97.9 F Pulse Rate 75 71 73 Respiratory Rate 24 24 Blood Pressure 181/97 H Pulse Oximetry 90 L 94 93 04/18/21 00:00 04/18/21 00:30 04/18/21 01:00 Temperature Pulse Rate 69 72 71 Respiratory Rate 31 H 30 H 27 H Blood Pressure Pulse Oximetry 95 90 L 97 04/18/21 01:30 04/18/21 01:37 04/18/21 02:00 Temperature Pulse Rate 79 84 80 Respiratory Rate 31 H 38 H 36 H Blood Pressure 182/105 H Pulse Oximetry 89 L 04/18/21 02:07 04/18/21 02:30 Temperature Pulse Rate 76 79 Respiratory Rate 30 H 34 H Blood Pressure 189/107 H Pulse Oximetry 90 L Fraction of Inspired Oxygen 60 Oxygen Delivery Method Nasal Cannula Oxygen Flow Rate 4 Narrative Exam Narrative: Patient is a thin frail male, appears older than stated age sleeping, tachypneic labored breathing. Objective Labs Result Diagrams: 04/17/21 23:15 04/17/21 23:15 Labs: Laboratory Results - last 24 hr 04/17/21 04/17/21 04/17/21 23:05 23:15 23:15 WBC 7.1 RBC 2.97 L Hgb 10.2 L Hct 30.1 L MCV 101.1 H MCH 34.2 H MCHC 33.9 RDW 14.9 H Plt Count 233 Neut % (Auto) 74.0 Lymph % (Auto) 11.3 L [place] % (Auto) 8.4 Eos % (Auto) 3.3 Baso % (Auto) 3.0 H Neut # (Auto) 5300 Lymph # (Auto) 800 L [place] # (Auto) 600 Eos # (Auto) 200 Baso # (Auto) 200 H D-Dimer 818 H Sodium Potassium Chloride Carbon Dioxide BUN Creatinine Estimated GFR BUN/Creatinine Ratio Glucose Lactate Calcium Magnesium Total Bilirubin AST ALT Alkaline Phosphatase Troponin I NT-Pro-B Natriuret Pep Total Protein Albumin Globulin Albumin/Globulin Ratio Procalcitonin Urine Color Urine Appearance Urine pH Ur Specific [place] Urine Protein Urine Glucose (UA) Urine Ketones Urine Occult Blood Urine Nitrate Urine Bilirubin Urine Urobilinogen Ur Leukocyte Esterase Urine RBC Urine WBC Urine Bacteria Ur Culture Indicated? U Opiates 300ng/mL cut Ur Oxycodone Screen Urine Methadone Screen Ur Barbiturates Screen U Tricyclic Antidepress Ur Phencyclidine Scrn Ur Amphetamines Screen U Methamphetamines Scrn Ur MDMA Scrn (Ecstasy) U Benzodiazepines Scrn Urine Cocaine Screen U Marijuana (THC) Screen SARS-CoV-2 (PCR) Negative 04/17/21 04/17/21 04/18/21 23:15 23:15 01:54 WBC RBC Hgb Hct MCV MCH MCHC RDW Plt Count Neut % (Auto) Lymph % (Auto) [place] % (Auto) Eos % (Auto) Baso % (Auto) Neut # (Auto) Lymph # (Auto) [place] # (Auto) Eos # (Auto) Baso # (Auto) D-Dimer Sodium 139 Potassium 4.6 Chloride 102 Carbon Dioxide 24 BUN 42 H Creatinine 7.94 H* Estimated GFR 7.0 L BUN/Creatinine Ratio 5.3 L Glucose 100 Lactate 0.9 Calcium 8.3 L Magnesium 2.5 H Total Bilirubin 0.5 AST 63 H ALT 126 H Alkaline Phosphatase 71 Troponin I 0.158 H* NT-Pro-B Natriuret Pep 975999 H Total Protein 6.9 Albumin 4.1 Globulin 2.8 Albumin/Globulin Ratio 1.5 Procalcitonin 0.87 H Urine Color Yellow Urine Appearance Clear Urine pH 8.0 Ur Specific [place] 1.015 Urine Protein 3+ H Urine Glucose (UA) Trace H Urine Ketones Negative Urine Occult Blood Trace-intact Urine Nitrate Negative Urine Bilirubin Negative Urine Urobilinogen 0.2 Ur Leukocyte Esterase Negative Urine RBC 0-1/hpf Urine WBC 0-1/hpf Urine Bacteria None seen Ur Culture Indicated? Cult not indicated U Opiates 300ng/mL cut Ur Oxycodone Screen Urine Methadone Screen Ur Barbiturates Screen U Tricyclic Antidepress Ur Phencyclidine Scrn Ur Amphetamines Screen U Methamphetamines Scrn Ur MDMA Scrn (Ecstasy) U Benzodiazepines Scrn Urine Cocaine Screen U Marijuana (THC) Screen SARS-CoV-2 (PCR) 04/18/21 01:54 WBC RBC Hgb Hct MCV MCH MCHC RDW Plt Count Neut % (Auto) Lymph % (Auto) [place] % (Auto) Eos % (Auto) Baso % (Auto) Neut # (Auto) Lymph # (Auto) [place] # (Auto) Eos # (Auto) Baso # (Auto) D-Dimer Sodium Potassium Chloride Carbon Dioxide BUN Creatinine Estimated GFR BUN/Creatinine Ratio Glucose Lactate Calcium Magnesium Total Bilirubin AST ALT Alkaline Phosphatase Troponin I NT-Pro-B Natriuret Pep Total Protein Albumin Globulin Albumin/Globulin Ratio Procalcitonin Urine Color Urine Appearance Urine pH Ur Specific [place] Urine Protein Urine Glucose (UA) Urine Ketones Urine Occult Blood Urine Nitrate Urine Bilirubin Urine Urobilinogen Ur Leukocyte Esterase Urine RBC Urine WBC Urine Bacteria Ur Culture Indicated? U Opiates 300ng/mL cut Negative Ur Oxycodone Screen Negative Urine Methadone Screen Negative Ur Barbiturates Screen Negative U Tricyclic Antidepress Negative Ur Phencyclidine Scrn Negative Ur Amphetamines Screen Negative U Methamphetamines Scrn Negative Ur MDMA Scrn (Ecstasy) Negative U Benzodiazepines Scrn Negative Urine Cocaine Screen Negative U Marijuana (THC) Screen Negative SARS-CoV-2 (PCR) Assessment & Plan Assessment & Plan narrative: Madhu Fontaine is a 61-year-old gentleman with ischemic cardiomyopathy, COPD, hx of CVA, HTN, stage 5 kidney disease dialyzes Sunday, history of methamphetamine use presents with increasing shortness of breath and productive cough without fever.? He states the shortness of breath is severe enough that he is unable to sleep for the past 24 hours.? He never lies down flat.? He denies fevers or palpitations.? He states he did dialyze yesterday.? Chest x-ray suggests fluid overload, sputum an elevated procalcitonin suggest possibility of developing pulmonary infection.? Patient is admitted for end of life comfort care, with a diagnosis of acute respiratory failure with hypoxia secondary to COPD exacerbation and CKD stage 5 requiring dialysis. 1. End of life comfort care, acute, present on admission --Admitted under Comfort End of Life Care Protocol -Code Status DNR/DNI Patient was diagnosised with acute respiratory failure due to COPD exacerbationin the ED at 220am patient became significantly worse with increased work of breathing, increased wheezing and obvious fatigue.? Again clar ified with both patient and his son who is at bedside that he is definitely DNR/DNI.?BiPAP was attempted and added morphine to help with the sense of air hunger as his clinical situation deteriorated. The patient did not tolerate BiPAP at all.? Much more comfortable with morphine to help with his air hunger.? -Dr. Tanner: Reviewed with his son and discussed moving to full comfort measures which means discontinuing dialysis as well.? -The patient's estranged technically has [id number], but prefers that the son make decisions.? -stopping dialysis, medications, monitoring, labs, and all preventative medical interventions. -In ED:Patient actually seems quite relieved with this decision and was significantly more comfortable with morphine on board and air hunger appropriately treated.? Tachypnea is continuing to increase as are very shallow ineffective breaths with severe wheeze noted.? -Morphine for pain/comfort management -V/S QD while awake -Oxygen titrated for comfort -Eye/oral care for comfort -Diet as tolerated -Zofran, ativan -Consult Hospice 2. Acute respiratory failure with hypoxia secondary to COPD exacerbation 3. Chronic kidney disease stage 5 requiring dialysis 4. History of CVA 5. Essential hypertension with cardiomyopathy 6. Acute on chronic methamphetamine abuse 7. Psoriasis Code status: DNR DNI DVT/VTE prophylaxis: None Comfort Care Covid PCR: Negative I confirmed that the patient's advanced care plan is present, Code status is documented and/or surrogate decision maker is listed in the patient's medical record. Surrogate decision maker: Estranged / Son Krunal Fontaine [phone] Exception-the patient is not eligible for medication reconciliation; as it is not appropriate during End- of Life Care Time Spent With Patient Critical Care time: I spent a total of [] minutes of critical care time on this patient's care today; this time is exclusive of procedural time.
--- NOTE | 2021-04-18 06:17 | PC.NURSE ---
Pt medicated with morphine x 2 for agitation/air hunger with good effect
--- NOTE | 2021-04-18 06:45 | PC.NURSE ---
Addendum entered by Indiana Arana R.N. 04/18/21 06:56: spoke to NEAL Bran, requesting for a morphine gtt for this patient, which she said yes, waiting on her orders. Original Note: pt admitted here on comfort care. No skin assessment done, trying to keep patient comfortable. pt wheezing throughout, on 2 L of oxygen. 2 MG of morphine given. Pt has a dialysis port to his right chest wall. pt also has dry scaly skin psoriasis
[2021-04-18] MEDS: MORPHINE 50 MG in DEXTROSE 5 % IN WATER 45 ML 5 ML IV (07:38)
--- NOTE | 2021-04-18 14:40 | CM.DANOTE ---
DCP: Case received, EMR reviewed and checked on patient. He is sleeping, non-responsive, he is on a morphine drip. Was able to later in the day speak to patient's friend, Billie Rodrigo Huddleston, for information on his living situation at home. DCP assessment was completed with information currently available. Patient is a 61 year old male who admitted early this morning to the care of the hospitalist team. 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 Payer: confirmed: [facility]/Medicaid. Patient came to the hospital via private vehicle secondary to increased coughing, weakness, and shortness of breath. Patient has history of ischemic cardomyopathy, COPD, history of CVA, HTN, and stage 5 kidney diseasy. He has been going to dialysis on Sunday, , and Sunday. Patient has history of methamphetamine use as well. ER provider indicated that his shortness of breath was getting worse, and did not tolerate BIPAP. Patient is now on full comfort measures here at the hospital, and is currently on a morphine drip. His diagnosis is acute respiratory failure with hypoxia secondary to COPD exacerbation and CKD stage 5 requiring dialysis. He is end of life comfort care. Verified with hospitalist, that patient is expected to pass here at the hospital. Was able to meet with patient's friend, Billie. She indicated that patient's son will be here, he recently finished his tour in the [employer]. Conformed that patient has been residing in [place] with friends. She confirmed that he has had drug problems. He does not drive, he has friend take him to [place] three times a week. Comfort measures were reviewed with patient's son, and according to notes, patient's estranged has [id number], but prefers that the son make decisions, which include stopping dialysis, medications, as well as monitoring labs and all preventative medical interventions. P: DCP to continue to check in and provide support for family. Patient is expected to here in the hospital, and son will be here to see patient. Sherri Maya RN/Customer Service Clerk Discharge Planning/Care Management CM Discharge Assessment Start: 04/18/21 14:31 Freq: Status: Active Protocol: Document 04/18/21 14:31 (Rec: 04/18/21 14:39 VM [id number]) Discharge Planning Assessment Assigned Senior Lead Java Developer Sherri Maya RN/Customer Service Clerk Advance Directives? Yes: at home Advance Directives on File No History Provided By Patient,Medical Record Prior Living Arrangements Apartment/Condo Household Members family Type of transporation used prior to Relies on Others admit Independent with ADL's Yes Is patient alert and oriented? Yes Caregiver for Another No Discharge Plan Home Transportation Arrangement Friends or family Referrals Initiated None needed Additional Comment Was informed, patient is expected to here in the hospital. Whiteboard Updated in Patient Room with Yes name and ext. # of Senior Lead Java Developer Review Status In Process Next Review Type Continued Stay Review
--- NOTE | 2021-04-18 14:58 | PC.NURSE ---
Addendum entered by Albert Glez R.N. 04/18/21 17:38: Patient has increased shallow breathing and slowing respirations. Increased secretions noted, patient repositioned for comfort and atropine SL gtts ordered and given. Patient's son is at bedside. Original Note: Assuming care of patient from [facility] barajas, patient non responsive laying in bed. Morphine gtt in place as ordered for comfort measures at 6mg/hr (6ml/hr), patient tolerating well at this time and appears comfortable. Bed alarm on for safety. Continue to monitor.
[2021-04-18] MEDS: MORPHINE 50 MG in DEXTROSE 5 % IN WATER 45 ML 6 ML IV (17:19)
[2021-04-18] MEDS: ATROPINE 1% OPHTH 2 DROPS SL (17:29)
--- NOTE | 2021-04-18 20:27 | PC.NURSE ---
Addendum entered by [place] Arana R.N. 04/19/21 06:49: Pt two sons were here until midnight. They are requesting that pt would go to [facility] and [facility] services. Original Note: pt resting with family at the bedside. Pt on a morphine gtt at 5 mg/hr. Pt having some sleep apnea at the moment. pt reposition to his back for comfort. will continue to monitor.
[2021-04-19] MEDS: MORPHINE 50 MG in DEXTROSE 5 % IN WATER 45 ML 5 ML IV (03:21)
[2021-04-19 08:34] VITALS: BP 79/49; PULSE 58; RESP 8; TEMP 36.7; O2SAT 77
[2021-04-19] MEDS: ATROPINE 1% OPHTH 2 DROPS SL (11:54)
--- NOTE | 2021-04-19 12:26 | PC.NURSE ---
Went to Pt room at 1130 and Spoke with Sons Genet and Krunal-discussed dying process and what to expect. Son Krunal agreed to removal of oxygen. Atropine drops given at 1154. Pt had erratic breathing with long paused and O2 Sat 74% on RA and falling. Pt was completely unresponsive and without a gag response. Called to the room by Pt's son Krunal at 1205 and verified Pt had stopped breathing and was without a pulse. Notified Dr. Johnson and Mary Ann Lindquist RN. Spoke with family and offered them to take as much time as they needed to say goodbye. 1225- Pt's family stated they were ready to leave and the home could be called. Pt's watch taken with Son Krunal. No clothing or other belongings left except for Pt's socks and his son did not want to take them. 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
--- NOTE | 2021-04-19 15:08 | PM.DDS.1 ---
Discharge Summary History of Illness Chief Complaint: Shortness of Breath/Dyspnea Narrative: 61-year-old gentleman with ischemic cardiomyopathy, COPD, hx of CVA, HTN, stage 5 kidney disease dialyzes Sunday, history of methamphetamine use presents with increasing shortness of breath and productive cough and noted to be in acute respiratory failure. Hospital Course Date of Admission: 04/18/21 04:48 Primary care provider: 04/19/2021 Consults: 04/18/21 04:30 Consult to Discharge Planning Routine Comment: Consult to Hospice Referral Urgent Comment: Discharge Diagnosis: 1. Acute hypoxic respiratory failure 2. Chronic kidney disease on hemodialysis 3. Ischemic cardiomyopathy 4. History of methamphetamine use 5. COPD exacerbation Hospital Course: Patient did not tolerate BiPAP in ED and was transition to comfort care with support of family. He was started on morphine drip and around noon on April 19, 2021. Son was present at/around time of . Objective Labs Result Diagrams: 04/17/21 23:15 04/17/21 23:15
--- NOTE | 2021-04-19 15:16 | PC.NURSE ---
Pt out via home gurney-escorted down to ER exit.
== END 2021-04-19 15:16 | disposition expired | DRG 951 ==
LOC: ED 04-18 01:06 → AC 04-18 07:42
PROVIDERS: Admitting Provider Nurse Practitioner Family; Emergency Provider Emergency Medicine; Referring Provider Emergency Medicine; Visit Provider Nurse Practitioner Family
DX: Z51.5 Encounter for palliative care (principal); J96.01 Acute respiratory failure with hypoxia; I50.33 Acute on chronic diastolic (congestive) heart failure; N18.6 End stage renal disease; J44.1 Chronic obstructive pulmonary disease with (acute) exacerbation; I13.2 Hypertensive heart and chronic kidney disease with heart failure and with stage 5 chronic kidney disease, or end stage renal disease; Z99.2 Dependence on renal dialysis; I25.5 Ischemic cardiomyopathy; F17.210 Nicotine dependence, cigarettes, uncomplicated; Z20.822 Contact with and (suspected) exposure to COVID-19; Z66 Do not resuscitate; Z86.73 Personal history of transient ischemic attack (TIA), and cerebral infarction without residual deficits
CPT/HCPCS: 36415; 71045; 80053; 80305; 81001; 83605; 83735; 83880; 84145; 84484; 85025; 85379; 87040; 87070; 87205; 87635; 93005; 93010; 94660; 96365; 96367; 96375; 99285; 99291; C9803; J1940; J2060; J2270; J2543; J2930